=== PATIENT | female | born 1960 | race Caucasian/White ===

== ENCOUNTER 2018-09-26 07:30 | Inpatient (IN) | payer OTHER ==
--- NOTE | 2018-09-16 13:34 | HP ---
HISTORY AND PHYSICAL: DATE OF ADMISSION/SURGERY: 09/26/18 DATE OF OFFICE VISIT: 09/16/18 SURGEON: Rosy Spaulding MD * (DICTATED BY NIRANJAN TYLER) PROCEDURE: Right total knee arthroplasty. CHIEF COMPLAINT: Right knee pain. HISTORY OF PRESENT ILLNESS: Ms. Mckeon is a 58-year-old female with continued complaints of right knee pain. She has failed conservative treatment and elected to proceed with a right total knee arthroplasty. PAST MEDICAL HISTORY: Hypertension, diabetes, high cholesterol, depression, anxiety, and essential tremors. PAST SURGICAL HISTORY: D and C, tonsillectomy, right adrenalectomy, removal of a fistula, and left foot surgery. CURRENT MEDICATIONS: 1. Primidone 250 mg 4 tabs. 2. Primidone 50 mg nightly. 3. Metformin 1000 mg twice a day. 4. Omeprazole 20 mg daily. 5. Citalopram 40 mg daily. 6. Atorvastatin calcium 40 mg daily. 7. Vitamin D3. 8. Multivitamin. 9. Propranolol 20 mg 3 times a day. 10. Gabapentin 400 mg 3 times a day. 11. Lamotrigine 200 mg in the morning. 12. Aripiprazole 10 mg q.h.s. 13. Lisinopril 20 mg daily. 14. Melatonin daily. 15. Tylenol as needed. 16. Naproxen twice a day. ALLERGIES: To SULFA. FAMILY HISTORY: Diabetes, coronary artery disease, stroke, and cancer. SOCIAL HISTORY: She is a 58-year-old female. She lives with her father and brother. She does not smoke, use drugs or alcohol. REVIEW OF SYSTEMS: A complete 14-point review of systems was reviewed with the patient. It was positive for diabetes. She denies history of DVT, PE, hepatitis, HIV or anesthesia problems. PHYSICAL EXAMINATION GENERAL: She is well developed, well nourished, in no acute distress. VITAL SIGNS: She stands 5 feet 3 inches tall, weighs 239 pounds. Her blood pressure is 148/82 and heart rate is 64. HEENT: Normocephalic, atraumatic. NECK: Supple. No palpable lymph nodes. PULMONARY: The lungs are clear to auscultation bilaterally. CARDIO: Regular rate and rhythm. Strong S1, S2. ABDOMEN: Soft, nontender, nondistended. NEUROLOGICAL: She is alert and oriented x3. MUSCULOSKELETAL: Right lower extremity: The skin is intact. There are no open wounds or abrasions. There is a moderate joint effusion. She has some tenderness over the medial and lateral joint line. Range of motion is 10 to 120 degrees of flexion with patellofemoral crepitus. She has a 2+ dorsalis pedis pulse and intact sensation. Her lower extremity muscle group strengths are intact at 5/5. ASSESSMENT AND PLAN: Ms. Mckeon is a 58-year-old female with continued complaints of right knee pain secondary to end-stage osteoarthritis. She has failed conservative treatment and elected to proceed with a right total knee arthroplasty. Her surgery is scheduled for 09/26/[address] Spaulding discussed the risks and benefits of the surgery at today's visit and all of her questions were answered. She will follow up with Dr. Spaulding 2 weeks after the surgery. NIRANJAN TYLER [id number]/[facility] #: [id number] UZIEL
--- NOTE | 2019-01-15 17:47 | HP ---
Amended report to enter cosigning physician. HISTORY AND PHYSICAL: DATE OF ADMISSION/SURGERY: 01/28/19 DATE OF OFFICE VISIT: 01/15/19 SURGEON: Rosy Spaulding MD* (dictated by NIRANJAN Tyler). PROCEDURE: Right total knee arthroplasty. CHIEF COMPLAINT: Right knee pain. HISTORY OF PRESENT ILLNESS: Ms. Mckeon is a 58-year-old female with continued complaints of right knee pain. She has failed conservative treatment and elected to proceed with a right total knee arthroplasty. PAST MEDICAL HISTORY: 1. Hypertension. 2. Diabetes. 3. GERD. 4. Anxiety. 5. Depression. 6. High cholesterol. PAST SURGICAL HISTORY: 1. Adrenalectomy. 2. D and C. CURRENT MEDICATIONS: 1. Primidone 450 mg a day. 2. Metformin 1000 mg twice a day. 3. Omeprazole 20 mg a day. 4. Citalopram hydrobromide 40 mg a day. 5. Atorvastatin calcium 40 mg a day. 6. Vitamin D3. 7. Multivitamin. 8. Propranolol 20 mg three times a day. 9. Gabapentin 400 mg three times a day. 10. Lamotrigine 200 mg daily. 11. Aripiprazole 10 mg q.h.s. 12. Lisinopril 20 mg a day. 13. Melatonin 5 mg a day. 14. Tylenol as needed. 15. Naproxen 500 mg twice a day. ALLERGIES: To SULFA. FAMILY HISTORY: Coronary artery disease, cancer, and diabetes. SOCIAL HISTORY: She is a 58-year-old female. She lives with her father and brother. She does not smoke, use drugs, or alcohol. REVIEW OF SYSTEMS: A complete 14-point review of systems was reviewed with the patient. It was positive for diabetes and GERD. She denies history of DVT, PE , hepatitis, HIV, or anesthesia problems. PHYSICAL EXAMINATION GENERAL: She is well developed, well nourished, in no acute distress. VITAL SIGNS: She stands 5 feet 4 inches tall, weighs 240 pounds. Blood pressure 140/82, heart rate 62. HEENT: Normocephalic, atraumatic. NECK: Supple. No palpable lymph nodes. PULMONARY: The lungs are clear to auscultation bilaterally. CARDIO: Regular rate and rhythm. Strong S1, S2. ABDOMEN: Soft, nontender, nondistended. NEUROLOGICAL: She is alert and oriented x3. MUSCULOSKELETAL: Right lower extremity, the skin is intact. There are no open wounds or abrasions. There is moderate effusion of the right knee joint. She has some tenderness over the medial and lateral joint line. Her calf is soft and nontender. She is able to dorsiflex and plantarflex. Has a 2+ dorsalis pedis pulse. She has intact sensation. ASSESSMENT AND PLAN: Ms. Mckeon is a 58-year-old female with end-stage osteoarthritis of the right knee. She has failed conservative treatment and elected to proceed with a right total knee arthroplasty. Her surgery is scheduled for 01/28/[address] Spaulding discussed the risks and benefits of the surgery at today's visit and all of her questions were answered. She will follow up with Dr. Spaulding 2 weeks after the surgery. NIRANJAN TYLER [id number]/[facility] #: [id number] UZIEL
[2019-01-27] MEDS ORDERED: Buffered Lidocaine 1% SYRIN* 1 ML/SYRINGE INTRADERM ONE (15:39)
[2019-01-28] MEDS ORDERED: Tranexamic Acid 1,000 MG in NS 0.9% 50 ML* (outpatient use) IV SCH ×2
[2019-01-28] MEDS ORDERED: Famotidine IV* 10 MG/ML 2 ML (20 mg) IV ONE (06:00)
[2019-01-28] MEDS ORDERED: NS 0.9% 1000 ML** 1,000 ML IV SCH (06:00)
--- OUTSIDE RECORDS SUMMARY | 2019-01-28 06:22 | XMS REPORT | Continuity of Care Document ---
:1960 External Reference #:[id number] Author Name DesmondCharlotte saucedoe Care Team Providers Name Role Phone Armida Quarles M.D. 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 Onset: 2013 cause Non-toxic uninodular goiter David Valentino M.D. Onset: 11/13/2013 Essential tremor Rozina Stevens M.D. Onset: 10/01/2015 Memory impairment Rozina Stevens M.D. Onset: 10/01/2015 Localized, primary osteoarthritis Rosy Spaulding M.D. Onset: 08/26/2018 Family History Date Family Member(s) Observation Comments General Lung Cancer General Stroke Father Cancer Skin Father Diabetes Father Hypertension Father Heart Murmur Mother due to Diabetes () Mother Cancer Uterine Mother Diabetes Mother Hypertension First Brother Cancer one brother at age 59: liver Cancer one brother at age 60: lung Cancer Social History Type Date Description Comments Sex Unknown Marital Status Single Lives With Father Lives With Brother Occupation day care Work Status Currently Working Tobacco Use Start: Unknown Never Smoked Cigarettes Tobacco Use Start: Unknown Never Smoked Cigars Tobacco Use Start: Unknown Never Smoked A Pipe Smokeless Tobacco Never Used Smokeless Tobacco ETOH Use Denies alcohol use Tobacco Use Start: Unknown Patient has never smoked Recreational Drug Use Denies Drug Use Smoking Status Reviewed: 01/15/19 Patient has never smoked Exercise Type/Frequency Exercises sporadically Allergies, Adverse Reactions, Alerts Active Allergies Reaction Severity Comments Date Sulfa 05/08/2012 Medications Active Medications SIG Qnty Indications Ordering Date Provider Primidone take 1 tablet by 60tabs Teom Valdivia, 02/28/2017 250mg Tablets mouth daily as MD directed. taking 1 tab with 4 tabs of 50mg Primidone 4 tabs by mouth 120tabs G25.0 Lenka Devlin, 05/12/2016 50mg Tablets in addition to M.D. 250mg tab. Naproxen 1 by mouth twice Unknown 500mg Tablets a day Tylenol 2 tabs by mouth Unknown 500mg Tablets every 4 hours as needed Melatonin take one by mouth Unknown 5mg Capsules each day Lisinopril 1 by mouth every 90tabs Unknown 2.5mg day Tablets Aripiprazole 1 by mouth every Unknown 10mg night at bedtime Tablets Lamotrigine ER take 1 pill in in Unknown 200mg the morning Tablets ER 24HR Gabapentin 1 cap by mouth Unknown 400mg three times daily Capsules Propranolol HCL take one tablet 90tabs Lenka Devlin, 20mg by mouth three M.D. Tablets times a day Multivitamin Adult 1 by mouth every Unknown With Iron day Tablets Vitamin D3 1 tab by mouth 90caps Unknown 1000Unit twice a day Capsules Atorvastatin Calcium 1 by mouth every Unknown day 40mg Tablets Citalopram 1 by mouth every 30tabs Unknown Hydrobromide day 40mg Tablets Omeprazole 1 po qd 30caps Unknown 20mg Capsules DR Metformin HCL 1 po bid 60tabs Unknown 1000mg Tablets History Medications Cipro take one tab twice 6tabs Rosy Spaulding, 09/18/2018 - 250mg Tablets a day for three M.D. 09/25/2018 days Multivitamin Adults Unknown - 09/03/2018 Tablets Invokana 1 by mouth every Unknown - 100mg Tablets day before 01/21/2018 breakfast Gabapentin 1 po tid 60caps Unknown - 300mg Capsules 06/17/2018 Bupropion HCL SR 1 by mouth qday Unknown - 150mg 06/17/2018 Tablets ER 12HR Pioglitazone HCL 1 by mouth every 30tabs Unknown - 30mg day 09/30/2015 Tablets Lexapro 1 po qd 30tabs Unknown - 20mg Tablets 06/17/2018 Simvastatin 1 po qhs 30tabs Unknown - 40mg Tablets 09/30/2015 Lisinopril/Hydrochloro 1 po qd 90tabs Unknown - thiazide 06/17/2018 25mg Tablets Meloxicam 1 po qd 30tabs Unknown - 15mg Tablets 01/21/2018 Actos 1 po qd 90tabs Unknown - 30mg Tablets 09/30/2015 Medications Administered in Office Medication SIG Qnty Indications Ordering Provider Date Celestone 3 mg and 3mg Jasson Cutler MD 06/18/2018 Injection Celestone 3 mg and 3mg Jasson Cutler MD 06/18/2018 Injection Vital Signs Date Vital Result Comment 01/15/2019 9:54am Height 64 inches 5'4" Weight 241.00 lb Heart Rate 62 /min Respiratory Rate 16 /min Body Temperature 97.4 F O2 % BldC Oximetry 97 % BMI (Body Mass Index) 41.4 kg/m2 09/16/2018 9:19am Height 63.5 inches 5'3.50" Weight 239.00 lb Heart Rate 64 /min BP Systolic 140 mmHg BP Diastolic 82 mmHg BMI (Body Mass Index) 41.7 kg/m2 09/10/2018 10:17am Height 63.5 inches 5'3.50" Weight 241.00 lb BP Systolic Sitting 128 mmHg BP Diastolic Sitting 82 mmHg Respiratory Rate 16 /min Pain Level 6 BMI (Body Mass Index) 42.0 kg/m2 08/26/2018 9:55am Height 63.5 inches 5'3.50" Weight 242.00 lb Heart Rate 60 /min BP Systolic 124 mmHg BP Diastolic 76 mmHg BMI (Body Mass Index) 42.2 kg/m2 06/18/2018 9:47am Height 64 inches 5'4" Weight 236.00 lb BP Systolic 118 mmHg BP Diastolic 68 mmHg BMI (Body Mass Index) 40.5 kg/m2 06/18/2018 8:46am Height 64 inches 5'4" Weight 236.25 lb Heart Rate 64 /min BP Systolic 118 mmHg BP Diastolic 68 mmHg BMI (Body Mass Index) 40.5 kg/m2 01/22/2018 3:17pm Height 64 inches 5'4" Weight 231.00 lb Heart Rate 67 /min BP Systolic Sitting 122 mmHg BP Diastolic Sitting 70 mmHg Respiratory Rate 16 /min Pain Level 6 BMI (Body Mass Index) 39.6 kg/m2 09/03/2017 9:49am Height 64 inches 5'4" Weight 238.00 lb Heart Rate 60 /min BP Systolic 106 mmHg BP Diastolic 62 mmHg Respiratory Rate 16 /min Pain Level 0 O2 % BldC Oximetry 97 % BMI (Body Mass Index) 40.8 kg/m2 06/01/2017 8:41am Height 64 inches 5'4" Weight 243.00 lb Heart Rate 59 /min BP Systolic Sitting 104 mmHg BP Diastolic Sitting 64 mmHg Respiratory Rate 16 /min Pain Level 0 O2 % BldC Oximetry 98 % BMI (Body Mass Index) 41.7 kg/m2 01/12/2017 8:44am Height 64 inches 5'4" Weight 286.00 lb Heart Rate 60 /min BP Systolic 118 mmHg BP Diastolic 72 mmHg Respiratory Rate 17 /min O2 % BldC Oximetry 97 % Ra BMI (Body Mass Index) 49.1 kg/m2 05/12/2016 11:21am Height 64 inches 5'4" Weight 286.00 lb Heart Rate 68 /min BP Systolic 104 mmHg BP Diastolic 58 mmHg Respiratory Rate 16 /min BMI (Body Mass Index) 49.1 kg/m2 10/01/2015 8:59am Height 64 inches 5'4" Weight 286.00 lb Heart Rate 64 /min BP Systolic Sitting 144 mmHg BP Diastolic Sitting 84 mmHg Respiratory Rate 16 /min BMI (Body Mass Index) 49.1 kg/m2 11/06/2013 9:58am Height 64 inches 5'4" Weight 281.00 lb Heart Rate 88 /min BP Systolic Sitting 126 mmHg BP Diastolic Sitting 80 mmHg BMI (Body Mass Index) 48.2 kg/m2 05/08/2012 2:06pm Height 64 inches 5'4" Weight 296.00 lb BMI (Body Mass Index) 50.8 kg/m2 Results Test Date Facility Test Result H/L Range Note Urinalysis Profile 01/15/2019 [facility] Urine Color Sandhya [address] [place] [address] [phone] Urine Appearance Cloudy Urine Specific Kimberly 1.027 N 1.010-1.030 Urine pH 5.0 N 5-9 Urine Urobilinogen Negative Negative Urine Ketones Negative Negative Urine Protein Negative Negative Urine Leukocytes 1+ Abnormal Negative Urine Blood Negative Negative Urine Nitrite Negative Negative Urine Bilirubin Negative Negative Urine Glucose Negative Negative Urine White Blood Cell 2+(11-20/hpf) Abnormal Absent Urine Red Blood Cell Absent Absent Urine Bacteria Absent Absent Urine Squamous Epithelial Cell Present Abnormal Absent Urine Hyaline Casts Present Abnormal Absent Inr/Protime 01/15/2019 [facility] Inr 0.93 N 0.82-1.[address] [place] [address] [phone] Laboratory test 01/15/2019 [facility] Partial 33.2 seconds N 26.0-38.[address] [place] [address] PTT [phone] CBC Auto Diff 01/15/2019 [facility] White Blood 7.6 10^3/uL N 3.5-10.[address] [place] [address] [phone] Red Blood Count 4.05 10^6/uL N 3.70-4.87 Hemoglobin 13.0 g/dL N 12.0-16.0 Hematocrit 39 % N 35-47 Mean Corpuscular Volume 96 fL N 80-97 Mean Corpuscular Hemoglobin 32 pg High 27-31 Mean Corpuscular HGB Conc 33 g/dL N 31-36 Red Cell Distribution Width 14 % N 10.5-15 Platelet Count 321 10^3/uL N 150-450 Mean Platelet Volume 8.1 fL N 7.4-10.4 Abs Neutrophils 4.0 10^3/uL N 1.5-7.7 Abs Lymphocytes 2.4 10^3/uL N 1.0-4.8 Abs Monocytes 0.6 10^3/uL N 0-0.8 Abs Eosinophils 0.6 10^3/uL N 0-0.6 Abs Basophils 0.0 10^3/uL N 0-0.2 Abs Nucleated RBC 0.0 10^3/uL Granulocyte % 53.0 % Lymphocyte % 31.2 % Monocyte % 7.7 % Eosinophil % 7.7 % Basophil % 0.4 % Nucleated Red Blood Cells % 0.0 Comp Metabolic Panel 01/15/2019 [facility] Sodium 140 mmol/L N 135-[address] [place] [address] [phone] Chloride 107 mmol/L N 101-111 Co2 Carbon Dioxide 26 mmol/L N 22-32 Glucose 81 mg/dL N 70-100 Blood Urea Nitrogen 22 mg/dL N 6-24 Creatinine 0.87 mg/dL N 0.51-0.95 BUN/Creatinine Ratio 25.3 High 8-20 Calcium 9.5 mg/dL N 8.6-10.3 Total Protein 6.6 g/dL N 6.4-8.9 Albumin 4.1 g/dL N 3.2-5.2 Globulin 2.5 g/dL N 2-4 Albumin/Globulin Ratio 1.6 N 1-3 Total Bilirubin 0.20 mg/dL N 0.2-1.0 Alkaline Phosphatase 70 U/L N 34-104 Alt 30 U/L N 7-52 Ast 29 U/L N 13-39 Egfr Non- 66.4 >60 Egfr 80.4 >60 2 Potassium 5.2 mmol/L High 3.5-5.0 Anion Gap 7 mmol/L N 2-11 Type & Screen 01/15/2019 [facility] Patient Blood Type A Positive [address] [place], [place] [id number] [phone] Antibody Screen NEGATIVE Urine Culture And 01/15/2019 [facility] Urine Culture SEE RESULT [address] [place] [address] [phone] Urine Culture And 09/16/2018 [facility] Urine Culture SEE RESULT [address] [place] [address] [phone] Type & Screen 09/16/2018 [facility] Patient Blood A Positive [address] Type [place], [place] [id number] [phone] Antibody Screen NEGATIVE Comp Metabolic Panel 09/16/2018 [facility] Sodium 140 mmol/L N 135-[address] [place] [address] [phone] Chloride 104 mmol/L N 101-111 Co2 Carbon Dioxide 28 mmol/L N 22-32 Glucose 96 mg/dL N 70-100 Blood Urea Nitrogen 20 mg/dL N 6-24 Creatinine 0.96 mg/dL High 0.51-0.95 BUN/Creatinine Ratio 20.8 High 8-20 Calcium 9.6 mg/dL N 8.6-10.3 Total Protein 6.4 g/dL N 6.4-8.9 Albumin 4.0 g/dL N 3.2-5.2 Globulin 2.4 g/dL N 2-4 Albumin/Globulin Ratio 1.7 N 1-3 Total Bilirubin 0.20 mg/dL N 0.2-1.0 Alkaline Phosphatase 95 U/L N 34-104 Alt 26 U/L N 7-52 Ast 28 U/L N 13-39 Egfr Non- 59.3 >60 Egfr 71.7 >60 5 Potassium 5.2 mmol/L High 3.5-5.0 Anion Gap 8 mmol/L N 2-11 Laboratory test 09/16/2018 [facility] Partial 29.6 seconds N 26.0-36.[address] [place] [address] PTT [phone] Inr/Protime 09/16/2018 [facility] Inr 0.90 N 0.77-1.[address] [place] [address] [phone] CBC Auto Diff 09/16/2018 [facility] White Blood 7.8 10^3/uL N 3.5-10.8 [place] [address] [phone] Red Blood Count 4.31 10^6/uL N 4.00-5.40 Hemoglobin 13.5 g/dL N 12.0-16.0 Hematocrit 40 % N 35-47 Mean Corpuscular Volume 93 fL N 80-97 Mean Corpuscular Hemoglobin 31 pg N 27-31 Mean Corpuscular HGB Conc 34 g/dL N 31-36 Red Cell Distribution Width 13 % N 10.5-15 Platelet Count 376 10^3/uL N 150-450 Mean Platelet Volume 8.4 fL N 7.4-10.4 Abs Neutrophils 4.4 10^3/uL N 1.5-7.7 Abs Lymphocytes 2.4 10^3/uL N 1.0-4.8 Abs Monocytes 0.6 10^3/uL N 0-0.8 Abs Eosinophils 0.4 10^3/uL N 0-0.6 Abs Basophils 0 10^3/uL N 0-0.2 Abs Nucleated RBC 0 10^3/uL Granulocyte % 56.0 % Lymphocyte % 31.2 % Monocyte % 7.1 % Eosinophil % 5.1 % Basophil % 0.6 % Nucleated Red Blood Cells % 0 Urinalysis Profile 09/16/2018 [facility] Urine Color Sandhya [address] [place] [address] [phone] Urine Appearance Cloudy Urine Specific Kimberly 1.028 N 1.010-1.030 Urine pH 5.0 N 5-9 Urine Urobilinogen Negative Negative Urine Ketones Negative Negative Urine Protein 1+(30 mg/dL) Abnormal Negative Urine Leukocytes 3+ Abnormal Negative Urine Blood Negative Negative Urine Nitrite Negative Negative Urine Bilirubin 2+ Abnormal Negative Urine Glucose Negative Negative Urine White Blood Cell 3+(>20/hpf) Abnormal Absent Urine Red Blood Cell Absent Absent Urine Bacteria Absent Absent Urine Squamous Epithelial Cell Present Abnormal Absent Urine Hyaline Casts Present Abnormal Absent Laboratory test finding 11/06/2013 [facility] T4 7.62 g/dL N 6.09-12.23 [facility] [place] [address] [phone] Total T3 0.93 ng/mL N 0.87-1.78 TSH (Thyroid Stimulating Horm) 0.26 IU/mL Low 0.34-5.60 1 Standard intensity warfarin therapeutic range: 2.0-3.0 High intensity warfarin therapeutic range: 2.5-3.5 2 Because ethnic data is not always readily available, this report includes an eGFR for both -Americans and non- Americans. The National Kidney Disease Education Program (NKDEP) does not endorse the use of the MDRD equation for patients that are not between the ages of 18 and 70, are , have extremes of body size, muscle mass, or nutritional status, or are non- or non-. According to the National Kidney Foundation, irrespective of diagnosis, the stage of the disease is based on the level of kidney function: Stage Description GFR(mL/min/1.73 m(2)) 1 Kidney damage with normal or decreased GFR 90 2 Kidney damage with mild decrease in GFR 60-89 3 Moderate decrease in GFR 30-59 4 Severe decrease in GFR 15-29 5 Kidney failure <15 (or dialysis) 3 SEE RESULT BELOW Name: MAGALIS MCKEON : [address]: Rosy Spaulding MD Acct: [id number] Unit: [id number] AGE: 58 Location: [facility] Re01/15/19 SEX: F Status: REG REF SPEC: [id number] KIKO: 01/15/19-[address] [facility] [address]: Rosy Spaulding MD REQ: [id number] RECD: 01/15/19385 STATUS: TOREY FELIZ DR: Armida Quarles MD _ SOURCE: URINE SPDESC: ORDERED: Urine Culture QUERIES: Urine Source: Clean Catch Procedure Result Reported Site Urine Culture Final 01/17/19- 1220 ML No growth of clinically significant organisms * ML - Main Lab . END OF REPORT DEPARTMENT OF PATHOLOGY, [address] [place] [address] Roque Multani M.D. Director [facility] # [id number] 4 SEE RESULT BELOW Name: MAGALIS MCKEON : [address]: Rosy Spaulding MD Acct: [id number] Unit: [id number] AGE: 58 Location: PAT Re09/16/18 SEX: F Status: REG REF SPEC: [id number] KIKO: 09/16/18-1213 [facility] [address]: Rosy Spaulding MD REQ: [id number] RECD: 09/16/18 STATUS: TOREY FELIZ DR: Armida Quarles MD _ SOURCE: URINE SPDESC: ORDERED: Urine Culture QUERIES: Urine Source: Clean Catch Procedure Result Reported Site Urine Culture Final 09/18/18- 1114 ML No growth of clinically significant organisms * ML - Main Lab . END OF REPORT DEPARTMENT OF PATHOLOGY, [address] [place] [address] Roque Multani M.D. Director [facility] # [id number] 5 Because ethnic data is not always readily available, this report includes an eGFR for both -Americans and non- Americans. The National Kidney Disease Education Program (NKDEP) does not endorse the use of the MDRD equation for patients that are not between the ages of 18 and 70, are , have extremes of body size, muscle mass, or nutritional status, or are non- or non-. According to the National Kidney Foundation, irrespective of diagnosis, the stage of the disease is based on the level of kidney function: Stage Description GFR(mL/min/1.73 m(2)) 1 Kidney damage with normal or decreased GFR 90 2 Kidney damage with mild decrease in GFR 60-89 3 Moderate decrease in GFR 30-59 4 Severe decrease in GFR 15-29 5 Kidney failure <15 (or dialysis) Procedures Date Code Description Status 09/16/2018 55380 EKG, Interpretation Only Completed 06/18/2018 87472 Inject/Drain Joint/Bursa Major W/O US Completed 10/11/2016 51778 Polysomnography Sleep Staging 4+ Parameters W/Cpap Completed 04/13/2016 68793 Polysomnography Sleep Staging 4+ Parameters Completed 10/07/2013 50317 Nerve Conduction 07-08 Studies Completed 10/07/2013 70331 Needle Electromyography Each Extremity W/Related Completed Paraspinal Areas Encounters Type Date Location Provider Dx Diagnosis Office Visit 09/10/2018 [place]/Susana Devlin, G25.0 Essential tremor 10:30a Neurologic Serv Harpal Rich Z79.899 Other pediatric pathologist (current) drug therapy Office Visit 08/26/2018 9:30a Orthopedic Rosy M17.0 Bilateral primary Services Of Delfino Spaulding osteoarthritis of C.M.A. 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, unspecified Office Visit 01/22/2018 [place]/Susana Lenka Loyagiancarlo, G25.0 Essential 3:30p Neurologic Serv Of Delfino tremor Credit Risk Officer Z79.899 Other pediatric pathologist (current) drug therapy Office Visit 09/03/2017 [place]/Susana Gong G25.0 Essential 10:00a Neurologic Serv Of Delfino Stevens tremor Credit Risk Officer Office Visit 06/01/2017 [place]/Susana Gong G25.0 Essential 8:45a Neurologic Serv Of Delfino Stevens tremor Credit Risk Officer Office Visit 01/12/2017 [place]/Susana Gong G25.0 Essential 8:45a Neurologic Serv Of Delfino Stevens tremor Credit Risk Officer Office Visit 05/12/2016 [place]/Susana Gong G25.0 Essential 11:30a Neurologic Serv Of Delfino Stevens tremor Credit Risk Officer R40.0 Somnolence G47.33 Obstructive sleep apnea (adult) (pediatric) Office Visit 10/01/2015 [place]/Susana Gong G25.0 Essential 9:00a Neurologic Serv Of Delfino Stevens tremor Credit Risk Officer R41.3 Other amnesia R40.0 Somnolence Office Visit 11/13/2013 ENT Services David Samuels.Inna Thyrotoxicosis W/O 10:00a Of C.M.[facility]arcus AT [place] Kamilla Goiter Other Cause [place] W/O Crisis Or Storm 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 Office Visit 11/06/2013 ENT Services Sam Clement Thyrotoxicosis W/O 10:00a C.[facility]arc[facility] AT [place] Kamilla Goiter Other Cause [place] W/O Crisis Or Storm Office Visit 07/03/2012 Cash Mckeon.16 Osteoarthrosis 9:45a Nolan Localized Prim Credit Risk Officer Lower Leg Office Visit 06/19/2012 Hector Mckeon Osteoarthrosis 9:30a Nolan Localized Prim Credit Risk Officer Lower Leg Office Visit 05/08/2012 Graciela Mckeon16 Osteoarthrosis 2:00p Nolan Localized Prim Credit Risk Officer Lower Leg Plan of Treatment Future Appointment(s):01/28/2019 9:30 am - Andre Dawkins PA-C at [facility].A.01/28/2019 9:30 am - NIRAJNAN Sykes at [facility].A.02/10/2019 9:30 am - Rosy Spaulding M.D. at [facility].01/28/2019 9:30 am - Rosy Spaulding M.D. at [facility].A.02/11/2019 9:00 am - Lenka Devlin M.D. at [facility]01/15/2019 - Rosy Spaulding M.D.M25.561 Pain in right kneeFollow up:Follow up: 2 weeks after kjpepsvQ31.461 Effusion, right kneeM17.0 Bilateral primary osteoarthritis of knee
--- OUTSIDE RECORDS SUMMARY | 2019-01-28 06:22 | XMS REPORT | Continuity of Care Document ---
:1960 External Reference #:[id number] Author Name Fern Gomez Care Team Providers Name Role Phone Armida Quarles M.D. Primary Care Physician Unavailable Payers Date Identification Numbers Payment Provider Subscriber Effective: 2017 Policy Number: [id number] Medicaid Magalis Mckeon Expires: 2017 Group Name: 1 1 [address] PayID: [id number] [place] [address] Policy Number: [id number] Anastaciomoncho Mckeon Group Number: [id number] [address] PayID: [id number] [place] [address] Problems Active Problems Provider Date Thyrotoxicosis without [...] Provider Primidone take 1 tablet by 60tabs Temo Valdivia, 02/28/2017 250mg Tablets mouth daily as [...] Test Result H/L Range Note Urinalysis Profile 09/16/2018 [facility] Urine Color Sandhya [address] [place] [address] [phone] Urine Appearance Cloudy Urine Specific [place] 1.028 N 1.010-1.030 Urine pH 5.0 N [...] Absent Urine Hyaline Casts Present Abnormal Absent CBC Auto Diff 09/16/2018 [facility] White Blood 7.8 10^3/uL N 3.5-10.[address] [place] [address] [phone] Red Blood Count 4.31 10^6/uL N 4.00-5.40 [...] % Nucleated Red Blood Cells % 0 Inr/Protime 09/16/2018 [facility] Inr [address] [place] [address] [phone] Laboratory test 09/16/2018 [facility] Partial 29.6 seconds N 26.0-36.[address] [place] [address] PTT [phone] Comp Metabolic 09/16/2018 [facility] Sodium 140 mmol/L N 135- [address] [place] [address] [phone] Chloride 104 mmol/L N 101-111 Co2 Carbon [...] Egfr Non- 59.3 >60 Egfr 71.7 >60 1 Potassium 5.2 mmol/L High 3.5-5.0 Anion Gap 8 mmol/L N 2-11 Type & Screen 09/16/2018 [facility] Patient Blood [place] [address] [phone] Antibody Screen NEGATIVE Urine Culture And 09/16/2018 [facility] Urine Culture SEE RESULT [address] [place] [address] [phone] Laboratory test 11/06/2013 [facility] T4 7.62 g/dL N 6.09-[address] [place] [address] [phone] Total T3 0.93 ng/mL N 0.87-1.78 TSH (Thyroid Stimulating Horm) 0.26 IU/mL Low 0.34-5.60 1 Because ethnic data is not always readily [...] 15-29 5 Kidney failure <15 (or dialysis) 2 SEE RESULT BELOW Name: MAGALIS MCKEON : [address]: Rosy Spaulding MD Acct: [id number] Unit: [id number] AGE: 58 Location: [facility] Re09/16/18 SEX: F Status: REG REF SPEC: [id number] KIKO: 09/16/18-[address]: Rosy Spaulding MD REQ: [id number] RECD: 09/16/18-1230 STATUS: COMP OT DR: Armida Quarles MD _ SOURCE: URINE SPDESC: ORDERED: Urine Culture QUERIES: Urine Source: Clean Catch Procedure Result Reported Site Urine Culture Final 09/18/18- 1114 ML No growth of clinically significant organisms * ML - Main Lab . END OF REPORT DEPARTMENT OF PATHOLOGY, [address] [place] [address] Roque Multani M.D. Director [facility] # [id number] Procedures Date Code Description Status 09/16/2018 59629 EKG, Interpretation Only Completed 06/18/2018 16179 Inject/Drain Joint/Bursa Major W/O US Completed 10/11/2016 56499 Polysomnography Sleep Staging 4+ Parameters W/Cpap Completed 04/13/2016 33779 Polysomnography Sleep Staging 4+ Parameters Completed 10/07/2013 52107 Nerve Conduction 07-08 Studies Completed 10/07/2013 14134 Needle Electromyography Each Extremity W/Related Completed Paraspinal Areas Encounters Type Date Location Provider Dx Diagnosis Office Visit 09/10/2018 [facility]/Prestolavinia Devlin G25.0 Essential tremor 10:30a [facility] Z79.899 Other nursing home (current) drug therapy Office Visit 08/26/2018 9:30a Orthopedic Rosy M17.0 Bilateral primary Services [facility] Spaulding osteoarthritis of [facility] 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, unspecified Office Visit 01/22/2018 [facility]/Prestolavinia Devlin G25.0 Essential 3:30p [facility] tremor [facility] Z79.899 Other termite helper (current) drug therapy Office Visit 09/03/2017 [place]/Susana Gong G25.0 Essential 10:00a [facility] Stevens tremor [facility] Office Visit 06/01/2017 [facility]Susana Gong G25.0 Essential 8:45a [facility] Stevens tremor [facility] Office Visit 01/12/2017 [facility]/Susana Gong G25.0 Essential 8:45a [facility] Stevens tremor [facility] Office Visit 05/12/2016 [facility]Susana Gong G25.0 Essential 11:30a [facility] Stevens tremor Hilario R40.0 Somnolence G47.33 Obstructive sleep apnea (adult) (pediatric) Office Visit 10/01/2015 [facility]/Susana Gong G25.0 Essential 9:00a [facility] Stevens tremor [facility] R41.3 Other amnesia R40.0 Somnolence Office Visit 11/13/2013 ENT Services David 242.90 Thyrotoxicosis W/O 10:00a Of [facility] AT [facility] Valentino Goiter Other Cause [place] W/O Crisis Or Storm 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 Office Visit 11/06/2013 [facility] Services Of [facility] 242.90 Thyrotoxicosis W/O 10:00a [facility] Valentino Goiter Other Cause [place] W/O Crisis Or Storm Office Visit 07/03/2012 Joint Theresa Feng5.16 Osteoarthrosis 9:45a [facility] of [facility] 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 at [facility]01/28/2019 9:30 am - Rosy Spaulding M.D. at [facility]02/11/2019 9:00 am - Lenka Devlin M.D. at [facility]01/15/2019 - Rosy Spaulding M.D.M25.561 Pain in right kneeFollow up:Follow up: 2 weeks after hzquqynN06.461 Effusion, right kneeM17.0 Bilateral primary osteoarthritis of knee
[2019-01-28] MEDS ORDERED: Acetaminophen TAB* 325 MG ONE (06:50)
[2019-01-28] MEDS ORDERED: Buffered Lidocaine 1% SYRIN* 1 ML/SYRINGE INTRADERM ONE (06:50)
[2019-01-28] MEDS ORDERED: ceFAZolin 2 GM PREMIX in ORs 2 GM/50 ML BAG ONE (06:50)
[2019-01-28] MEDS ORDERED: Ibuprofen TAB* 600 MG ONE (06:50)
[2019-01-28] MEDS ORDERED: Famotidine IV* 10 MG/ML 2 ML (20 mg) ONE (06:51)
[2019-01-28] MEDS: Acetaminophen TAB* 325 MG PO ONE ×2 (07:03→07:09)
[2019-01-28] MEDS: Ibuprofen TAB* 600 MG PO ONE ×3 (07:03→12:49)
[2019-01-28] MEDS ORDERED: Bupivacaine 0.5%* 50 ML VIAL ONE (07:06)
[2019-01-28] MEDS ORDERED: Ondansetron INJ* 2 MG/ML VIAL ONE (07:45)
[2019-01-28] MEDS ORDERED: Midazolam* 1 MG/ML 10 ML VIAL (10 MG) ONE (07:45)
[2019-01-28] MEDS ORDERED: fentaNYL* 50 MCG/ML 2 ML VIAL (100 MCG VIAL) ONE ×2 (07:45→12:08)
[2019-01-28] MEDS ORDERED: Sodium Chloride 0.9%* 20 ML ONE (07:45)
[2019-01-28] MEDS ORDERED: Lidocaine 2% PF * 5 ML VIAL ONE ×3 (07:45→09:27)
[2019-01-28] MEDS ORDERED: ROPIVACAINE 5 MG/ML 30 ML BTL (0.5%) ONE ×2 (07:45→07:59)
[2019-01-28] MEDS ORDERED: Dexamethasone IV* 4 MG/ML 1 ML (4 MG) ONE (07:45)
[2019-01-28] MEDS ORDERED: KETAMINE HCL* 50 MG/ML 10 ML VIAL ONE (07:45)
[2019-01-28] MEDS ORDERED: Propofol* 10 MG/ML 20 ML BTL ONE ×2 (07:45→09:27)
[2019-01-28] MEDS ORDERED: Phenylephrine 10 MG/ML VIAL* 1 ML VIAL ONE (09:10)
[2019-01-28] MEDS ORDERED: EPHEDrine (Pressors)* 50 MG/ML VIAL ONE (09:17)
[2019-01-28] MEDS ORDERED: fentaNYL* 50 MCG/ML 5 ML VIAL (250 MCG VIAL) ONE (09:21)
[2019-01-28] MEDS ORDERED: Ondansetron INJ* 2 MG/ML VIAL IV PRN ×2 (10:32→11:34)
[2019-01-28] MEDS ORDERED: Naloxone* 0.4 MG/ML 1 ML VIAL IV PRN (10:32)
[2019-01-28] MEDS ORDERED: diPHENhydraMINE IV* 50 MG/ML 1 ml VIAL (BENADRYL) IV PRN (11:34)
[2019-01-28] MEDS ORDERED: Acetaminophen TAB* 325 MG PO PRN (11:34)
[2019-01-28] MEDS ORDERED: Morphine INJ* 2 MG/ML 1 ML SYRINGE (TWO MG - NEW SYRINGE VERSION) IV PRN (11:34)
[2019-01-28] MEDS ORDERED: Magnesium Hydroxide LIQ* 30 ML UDC PO PRN (11:34)
[2019-01-28] MEDS ORDERED: Bisacodyl SUPP* 10 MG SUPP PR PRN (11:34)
[2019-01-28] MEDS: fentaNYL* 50 MCG/ML 2 ML VIAL (100 MCG VIAL) IV PRN ×2 (12:09→12:42)
[2019-01-28] MEDS ORDERED: Dextrose 50% Syringe 50 ML* 25 GM/50 ML SYRINGE IV PUSH PRN (13:14)
--- NOTE | 2019-01-28 13:35 | PN ---
Progress Note - Progress Note Date of Service: 01/28/19 Note: resting comfortably in bed with no significant complaints of pain; able to dorsi flex/plantar flex, 2+ DP pulse, intact sensation
[2019-01-28] MEDS ORDERED: oxyCODONE/Acetamin 5/325 MG* TAB ONE (13:41)
[2019-01-28] MEDS: oxyCODONE/Acetamin 5/325 MG* TAB PO PRN ×3 (13:42→22:10)
[2019-01-28] MEDS: Lactated Ringers 1000 ML Bag* 1,000 ML IV SCH (14:24)
[2019-01-28] MEDS: Gabapentin CAP(*) 400 MG PO SCH ×2 (14:25→20:55)
[2019-01-28] MEDS: Nystatin TOP POWDER* 15 GM BTL TOPICAL SCH ×2 (14:25→21:00)
[2019-01-28] MEDS: Propranolol TAB* 20 MG PO SCH ×2 (14:25→21:05)
[2019-01-28] MEDS: Cyclobenzaprine TAB* 10 MG PO PRN ×2 (14:31→22:10)
--- NOTE | 2019-01-28 15:10 | CONS ---
CC: Dr. Spaulding; Dr. Quarles * CONSULTATION REPORT: DATE OF CONSULT: 01/28/19 PRIMARY CARE PROVIDER: Armida Quarles MD. REQUESTING PHYSICIAN: Dr. Spaulding. REASON FOR CONSULT: This consultation was requested by Dr. Spaulding for postoperative management of the patient's diabetes and hypertension in this patient who is status post right total knee replacement. CHIEF COMPLAINT: Right knee pain. HISTORY OF PRESENT ILLNESS: Magalis Mckeon is a 58-year-old female with history of obesity and osteoarthritis of her right knee who is status post elective right knee replacement performed by Dr. Spaulding. The patient is being evaluated in the postoperative unit and medicine is going to be consulted for the patient's management of diabetes and hypertension perioperatively. Currently, the patient complains of discomfort in the postoperative knee and the sensation that the knee is being pushed towards the bed. PAST MEDICAL HISTORY: 1. Hypertension. 2. Diabetes. 3. Gastroesophageal disease. 4. Anxiety. 5. Depression. 6. Dyslipidemia. 7. 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 8. History of D and C. 9. History of "abnormal EKG," for which the patient was evaluated by Dr. Emir Issa for preoperative clearance from cardiology. 10. The patient also has history of benign tremor. MEDICATIONS AT HOME: Include: 1. Metformin 1000 mg b.i.d. 2. Lamictal 200 mg q.a.m. 3. Vitamin D 1000 units b.i.d. 4. Propranolol 20 mg 3 times a day. 5. Primidone 250 mg at bedtime. 6. Omeprazole 20 mg daily. 7. Naproxen 500 mg b.i.d. p.r.n. 8. Multivitamin 1 tablet daily. 9. Melatonin 5 mg at bedtime. 10. Lisinopril 25 mg in a.m. 11. Gabapentin 400 mg 3 times a day. 12. Celexa 40 mg daily. 13. Lipitor 40 mg at bedtime. 14. Acetaminophen 500 mg every 6 hours p.r.n. 15. Abilify 10 mg at bedtime. ALLERGIES: SULFA. FAMILY HISTORY: Positive for brother with prostate cancer. Mother with history of mitral valve prolapse due to complications of diabetes and heart disease. SOCIAL HISTORY: The patient is currently not working. Lives with her father and brother. As her surrogate, she named her father, Wesley Mckeon. The patient denies tobacco, alcohol or drug use. She is a full code. REVIEW OF SYSTEMS: Please see history of present illness. All the remaining 12 systems were reviewed with the patient and were, otherwise, negative. PHYSICAL EXAM: Blood pressure of 108/67, heart rate of 70 and regular, respiratory rate 14, oxygen saturation 98% on 4 L of oxygen nasal cannula, temperature is 97.8. General: The patient is a pleasant 58-year-old female with a BMI of 38 who is in no acute distress. The patient is alert, awake, and oriented x3, mildly lethargic postoperatively. HEENT: Head: Atraumatic, normocephalic. Eyes: Pupils are equal and reactive to light and accommodation. Oropharynx is clear. Mucosa moist. Neck: Supple. No JVD. No bruits bilaterally. Cardiovascular: Regular rate and rhythm. No murmur. Respiratory: Clear to auscultation bilaterally. Abdomen: Soft and nontender. Bowel sounds are present in all 4 quadrants. Extremities: There is no edema. Pulses are 2+ bilaterally. There is no clubbing or cyanosis. The right knee is placed in a cryo unit and postoperative dressings in place that were not removed. Neuro Evaluation: Speech is clear. Cranial nerves II through XII grossly intact. Motor strength is 5/5 bilaterally. DIAGNOSTIC STUDIES/LAB DATA: None currently. ASSESSMENT AND PLAN: 1. In regards to the patient's diabetes, the patient's metformin is going to be held and the patient is going to be placed on insulin sliding scale. 2. For the patient's anxiety and depression, lamotrigine as well as Celexa and Abilify are going to be continued postoperatively. 3. For the patient's benign tremor, propranolol as well as primidone are going to be continued. 4. For gastroesophageal disease, we will continue the patient's Prilosec. 5. In regards to the patient's postoperative management of hypertension, I will hold the patient's lisinopril and continue propranolol with hold parameters. 6. For DVT prophylaxis, the patient was already placed by orthopedic service on apixaban at 2.5 mg b.i.d., which is going to be continued. 7. The patient's code status is full and her surrogate is her father. TIME SPENT: Approximately 60 minutes were spent on the consultation of this patient, more than half that time was spent [id number] with the patient during the interview and physical exam. Thank you very much for allowing our service to see your patient in consultation. We will follow her on a daily basis. [id number]/CPS #: [id number] UZIEL
[2019-01-28] MEDS: ceFAZolin 1 GM ADVAN(*) 1 GM in NS 0.9% 50 ML* 50 ML IVPB SCH (17:43)
--- NOTE | 2019-01-28 18:11 | OP ---
Operative Report - Blank - Operative Report Date of Operation: 01/28/19 Note: SHANTAL LALA 1960 Date of Surgery: 01/28/19 Rosy Spaulding MD Hairspring Setter: Candy UREÑA did help throughout the procedure with preparation of the knee, wound retraction, manipulation of the knee, and wound closure. Anesthesiologist: Sonia Mckay MD Anesthesia Type: Spinal Preoperative Diagnosis: Right severe degenerative osteoarthritis of the knee Postoperative Diagnosis: As above Procedure Performed: Right Total Knee Arthroplasty Tourniquet time: 44 minutes Complications: None Specimen: Bone and cartilage from the right knee joint sent to pathology. Hardware Used: Cemented Issa and Nephew total knee hardware was used - For the femur a size 5 right narrow oxinium legion posterior stabilized femoral component, for the tibia a size 3 right rex II tibial baseplate, for the insert a size 9 mm 3-4 posterior stabilized articular polyethylene insert, and for the patella a size 32 3-peg all poly patella. Brief History/Indication: SHANTAL LALA was known in clinic and had a history of severe right knee pain and swelling. She failed conservative treatment with anti -inflammatories, pain pills, intra-articular injections and physical therapy. She elected to undergo right total knee arthroplasty due to continued pain and decreased quality of life. Radiographs showed severe end stage osteoarthritis of the knee with bone on bone contact. Informed consent was obtained from the patient. She understood the risks of surgery included but were not limited to: bleeding, infection, damage to nearby structures, intraoperative fracture, nerve palsy, failure of the hardware, early loosening, knee stiffness or loss of motion, anesthesia complications, stroke, heart attack, blood clot and . She wished to proceed. Intra-Operative Findings: Intraoperatively the patient was noted to have severe loss of cartilage in all 3 compartments of the knee. Description of the Procedure: SHANTAL LALA was identified in the preanesthesia unit. Her right knee was marked as the correct operative side. Informed consent was signed and placed in the chart. The patient was taken to the operating room and placed under anesthesia without complication. A doyle catheter was placed. A tourniquet was placed on the right thigh. The right lower extremity was prepped and draped in the usual sterile fashion. Preoperative time-out was made to correctly identify the patient, side and site. Appropriate intraoperative antibiotics were given within one hour of incision. Tourniquet was inflated. A midline incision was made and carried sharply down to the extensor mechanism. A new 10 blade was used to make a standard medial parapatellar arthrotomy. The patella was subluxed laterally. Electrocautery was used to dissect soft tissue off the superomedial tibia to the midsagittal plane. The knee was flexed up. The anterior horn of the lateral meniscus and the ACL were sharply incised. A drill was used to enter the distal femur. The intramedullary distal femoral cutting guide was pinned on the distal femur. The oscillating saw was used to make the distal femoral cut. The external rotation guide was pinned on the distal femur and the distal femur was sized to a size 5. The size 5 multi-cutting jig was pinned on the distal femur. The oscillating saw was used to make the appropriate 4 chamfer cuts. Next the PCL was completely released. The extramedullary tibial cutting guide was pinned on the proximal tibia and the oscillating saw was used to make the proximal tibial cut perpendicular to the mechanical axis of the tibia. The bone was carefully removed. The knee was brought out into full extension. The spacer block was placed and had excellent fit with the knee in full extension. The medial and lateral ligaments were well balanced. The flexion and extension gaps were well balanced. The knee was flexed up. Lamina incident response lead was placed both medially and laterally. Any remaining meniscus was removed with electrocautery. Curved osteotome was used to remove any posterior osteophytes. The tibial tray and drop chi were placed and confirmed a satisfactory tibial cut. The size 5 right narrow femoral trial was impacted onto the distal femur. This trial had excellent fit and stability. The box for the posterior stabilized implant was prepared using a box cut osteotome and a reamer. Next a tibial tray trial and 9 mm insert trial was placed. The knee was taken through a range of motion and had full extension to 130 degrees of flexion. Patellofemoral tracking was satisfactory. The patella was inverted and sized to a size 32. Three peg holes were drilled through the size 32 drill guide. The trial patella was placed and the knee was taken through a range of motion. There was satisfactory patellofemoral tracking. All trials were removed. The tibia was subluxed anteriorly and sized to a size 3. The proximal tibial was prepared with a size 3 keel punch. All bony cut surfaces were irrigated with sterile saline and dried. Final implants were cemented into place starting with the tibia, followed by the femur, and last the patella. A 9 mm insert trial was placed and the knee was brought into full extension. Tourniquet was turned down and the knee was copiously irrigated with sterile saline. Electrocautery was used to obtain meticulous hemostasis. Once the cement had fully cured, the insert trial was removed. Any excess cement was removed from around the hardware and capsule. Final insert chosen was a 9 mm posterior stabilized Rex II articular insert size 3-4. Stability of the insert was checked and noted to be stable. The extensor mechanism was closed using number 1 vicryls. The rest of the incision was closed in a layered fashion using 0 and 2-0 vicryls. The skin was closed using 3-0 nylon suture. Sterile xeroform, 4x4s and webril were used to cover the incision. Daniel wrap and cold pack were used to cover the dressings. The patients anesthesia was reversed without difficulty. She was taken to the PACU in stable condition. Intended weight-bearing will be as tolerated.
[2019-01-28] MEDS: Insulin LISPRO* 1 UNITS UNIT SUBCUT SCH ×2 (18:15→20:59)
[2019-01-28] MEDS: oxyCODONE TAB* 5 MG TAB PO PRN (20:10)
[2019-01-28] MEDS: Atorvastatin* 40 MG TAB PO SCH (20:55)
[2019-01-28] MEDS: Docusate CAP* 100 MG PO SCH (20:55)
[2019-01-28] MEDS: Magnesium Hydroxide LIQ* 30 ML UDC PO SCH (20:55)
[2019-01-28] MEDS: Primidone TAB(*) 250 MG PO SCH (20:56)
[2019-01-28] MEDS: Primidone TAB(*) 50 MG PO SCH (20:56)
[2019-01-28] MEDS: ARIPiprazole TAB* 5 MG PO SCH (21:05)
[2019-01-29] MEDS: Lactated Ringers 1000 ML Bag* 1,000 ML IV SCH (00:10)
[2019-01-29] MEDS: ceFAZolin 1 GM ADVAN(*) 1 GM in NS 0.9% 50 ML* 50 ML IVPB SCH ×2 (02:13→10:08)
[2019-01-29] MEDS: oxyCODONE/Acetamin 5/325 MG* TAB PO PRN ×5 (02:16→23:47)
[2019-01-29] MEDS: oxyCODONE TAB* 5 MG TAB PO PRN ×2 (06:28→11:09)
[2019-01-29] MEDS: Insulin LISPRO* 1 UNITS UNIT SUBCUT SCH ×4 (07:53→21:26)
[2019-01-29] MEDS ORDERED: Apixaban* 2.5 MG TAB PO SCH (09:00)
[2019-01-29] MEDS: Gabapentin CAP(*) 400 MG PO SCH ×3 (10:08→21:28)
[2019-01-29] MEDS: Nystatin TOP POWDER* 15 GM BTL TOPICAL SCH ×3 (10:08→21:29)
[2019-01-29] MEDS: LAMOTRIGINE 200 MG PO SCH (10:08)
[2019-01-29] MEDS: Docusate CAP* 100 MG PO SCH ×2 (10:08→21:28)
[2019-01-29] MEDS: Magnesium Hydroxide LIQ* 30 ML UDC PO SCH ×2 (10:08→21:26)
[2019-01-29] MEDS: Vitamin THERAPEUTIC TAB PO SCH (10:08)
[2019-01-29] MEDS: Pantoprazole TAB * 40 MG TAB PO SCH (10:09)
[2019-01-29] MEDS: Citalopram TAB* 40 MG PO SCH (10:09)
[2019-01-29] MEDS: Propranolol TAB* 20 MG PO SCH ×3 (10:43→21:28)
[2019-01-29] MEDS: Cyclobenzaprine TAB* 10 MG PO PRN (11:12)
--- NOTE | 2019-01-29 11:22 | PN ---
Subjective Date of Service: 01/29/19 Interval History: Pt feels well. did stairs today. Still on 1 L02 Objective Active Medications: Acetaminophen (Tylenol Tab*) 650 mg PO Q8H PRN PRN Reason: PAIN OR TEMPERATURE Aripiprazole (Abilify Tab*) 10 mg PO BEDTIME [facility] Last Admin: 01/28/19 21:05 Dose: 10 mg Atorvastatin Calcium (Lipitor*) 40 mg PO BEDTIME [facility] Last Admin: 01/28/19 20:55 Dose: 40 mg Bisacodyl (Dulcolax Supp*) 10 mg OH DAILY PRN PRN Reason: constipation Citalopram Hydrobromide (Celexa Tab*) 40 mg PO QAM [facility] Last Admin: 01/29/19 10:09 Dose: 40 mg Cyclobenzaprine HCl (Flexeril Tab*) 5 mg PO TID PRN PRN Reason: SPASMS Last Admin: 01/29/19 11:12 Dose: 5 mg Dextrose (D50w Syringe 50 Ml*) 12.5 gm IV PUSH .FOR FS < 60 - SS PRN PRN Reason: FS < 60 Diphenhydramine HCl (Benadryl Iv*) 25 mg IV Q6H PRN PRN Reason: itching Docusate Sodium (Colace Cap*) 100 mg PO BID [facility] Last Admin: 01/29/19 10:08 Dose: 100 mg Enoxaparin Sodium (Lovenox(*)) 40 mg SUBCUT Q24H [facility] Gabapentin (Neurontin Cap(*)) 400 mg PO TID [facility] Last Admin: 01/29/19 10:08 Dose: 400 mg Lactated Ringer's (Lactated Ringers 1000 Ml Bag*) 1,000 mls @ 100 mls/hr IV PER RATE [facility] Last Admin: 01/29/19 00:10 Dose: 100 mls/hr Insulin Human Lispro (Humalog*) 0 units SUBCUT ACHS [facility]; Protocol Last Admin: 01/29/19 07:53 Dose: Not Given Lactulose (Lactulose*) 30 ml PO Q6H PRN PRN Reason: constipation Lamotrigine (Lamictal Xr (Nf)) 200 mg PO QAM [facility] Last Admin: 01/29/19 10:08 Dose: 200 mg Magnesium Hydroxide (Milk Of Magnesia Liq*) 30 ml PO BID [facility] Last Admin: 01/29/19 10:08 Dose: 30 ml Magnesium Hydroxide (Milk Of Magnesia Liq*) 30 ml PO Q6H PRN PRN Reason: constipation Morphine Sulfate (Morphine Inj (Syringe))*) 2 mg IV Q2H PRN PRN Reason: PAIN Multivitamins (Theragran Tab*) 1 tab PO DAILY [facility] Last Admin: 01/29/19 10:08 Dose: 1 tab Nystatin (Nystatin Top Powder*) 1 applic TOPICAL TID [facility] Last Admin: 01/29/19 10:08 Dose: Not Given Ondansetron HCl (Zofran Inj*) 4 mg IV Q6H PRN PRN Reason: nausea Oxycodone HCl (Roxycodone Tab*) 10 mg PO Q4H PRN PRN Reason: PAIN - SEVERE Last Admin: 01/29/19 11:09 Dose: 10 mg Oxycodone/Acetaminophen (Percocet 5/325 Tab*) 1 tab PO Q4H PRN PRN Reason: PAIN Last Admin: 01/28/19 18:16 Dose: 1 tab Oxycodone/Acetaminophen (Percocet 5/325 Tab*) 2 tab PO Q4H PRN PRN Reason: PAIN Last Admin: 01/29/19 08:51 Dose: 2 tab Pantoprazole Sodium (Protonix Tab*) 40 mg PO QAM [facility] Last Admin: 01/29/19 10:09 Dose: 40 mg Primidone (Mysoline Tab(*)) 250 mg PO BEDTIME [facility] Last Admin: 01/28/19 20:56 Dose: 250 mg Primidone (Mysoline Tab(*)) 200 mg PO BEDTIME [facility] Last Admin: 01/28/19 20:56 Dose: 200 mg Propranolol HCl (Inderal Tab*) 20 mg PO TID [facility] Last Admin: 01/29/19 10:43 Dose: 20 mg Vital Signs - 8 hr 01/29/19 01/29/19 01/29/19 04:00 04:05 06:27 Temperature 98.2 F Pulse Rate 73 Respiratory 14 17 20 Rate Blood Pressure 119/53 (mmHg) O2 Sat by Pulse 99 98 100 Oximetry 01/29/19 01/29/19 01/29/19 06:28 07:43 07:53 Temperature 98.6 F Pulse Rate 71 Respiratory 20 15 18 Rate Blood Pressure 126/53 (mmHg) O2 Sat by Pulse 93 Oximetry 01/29/19 01/29/19 01/29/19 08:51 09:08 10:08 Temperature Pulse Rate Respiratory 18 18 18 Rate Blood Pressure (mmHg) O2 Sat by Pulse Oximetry 01/29/19 01/29/19 11:09 11:12 Temperature Pulse Rate Respiratory 18 18 Rate Blood Pressure (mmHg) O2 Sat by Pulse Oximetry Oxygen Devices in Use Now: Nasal Cannula Appearance: 58 yo F in NAD, AAOx3 Eyes: No Scleral Icterus, PERRLA Ears/Nose/Mouth/Throat: NL Teeth, Lips, Gums, Mucous Membranes Moist Neck: NL Appearance and Movements; NL JVP, Trachea Midline Respiratory: Symmetrical Chest Expansion and Respiratory Effort, Clear to Auscultation Cardiovascular: NL Sounds; No Murmurs; No JVD Abdominal: NL Sounds; No Tenderness; No Distention, No Hepatosplenomegaly Lymphatic: No Cervical Adenopathy Extremities: No Clubbing, Cyanosis, - - left knee in post op dressings and cryo unit-not uncovered Skin: No Rash or Ulcers, No Nodules or Sclerosis Neurological: Alert and Oriented x 3, NL Muscle Strength and Tone Result Diagrams: 01/29/19 08:31 01/29/19 13:25 Assess/Plan/Problems-Billing Assessment: 58 yo F with h/o HTN, benign tremor, DM2 s/p elective R knee replacement - Patient Problems (1) Knee joint replacement status Comment: as per Dr. Spaulding (2) HTN (hypertension) Comment: controlled, lisinopril held, cont propranolol (3) Benign essential tremor Comment: cont primidone and propranolol (4) DM2 (diabetes mellitus, type 2) Comment: cont ISS, PO meds held (5) DVT prophylaxis Comment: on lovenox as per ortho Status and Disposition: medicine consult, will follow
[2019-01-29] MEDS: Enoxaparin(*) 40 MG/0.4 ML SYR SUBCUT SCH (12:10)
--- NOTE | 2019-01-29 13:24 | PN ---
Progress Note - Progress Note Date of Service: 01/29/19 SOAP: Subjective: []Pt seen at bedside. She denies CP, SOB, dizziness, nausea. Left knee pain is well controlled. She would prefer to go home at DC but is open to rehab if indicated Objective: []Gen: NAD, appears comfortable LLE: left knee dressing CDI, thigh soft, DF/PF intact, DP2+, sensation intact to light touch distally Calves supple and nontender without erythema, edema or palpable cords Assessment: []POD 1 sp LTK Plan: []WBAT PT/OT lovenox 40 mg sq qd x 30 days Encourage IS Plan for home tomorrow, if lacks progression with PT will consider rehab Vital Signs Temp 98.5 F 01/29/19 11:40 Pulse 73 01/29/19 11:40 Resp 18 01/29/19 12:51 BP 156/60 01/29/19 11:40 Pulse Ox 90 01/29/19 11:40 Intake & Output 01/28/19 01/29/19 01/29/19 18:59 06:59 18:59 Intake Total 2560 840 1238 Output Total 500 2750 Balance 0 -191 1238 Weight 231 lb Intake: IV Fluids 2450 883 LR 2400 883 NS 50ML, Cefazolin 2G 50 Medicated IV 115 Cefazolin 115 Oral 110 840 240 Output: Camp 500 2750 Other: # Bowel Movements 0 Estimated Blood Loss <150 Comment Laboratory Last Values POC Glucose (mg/dL) 190 mg/dL (70-100) H 01/29/19 11:47
[2019-01-29 13:41] LABS: Hematocrit 35 % (35-47); Hemoglobin 11.8 g/dL (12.0-16.0); Mean Platelet Volume 7.9 fL (7.4-10.4); Platelet Count 329 10^3/uL (150-450)
[2019-01-29 13:56] LABS: BUN/Creatinine Ratio 14.3 (8-20); Calcium 8.8 mg/dL (8.6-10.3); EGFR African American 83.7 (>60); EGFR Non-African American 69.2 (>60); Potassium 4.1 mmol/L (3.5-5.0)
[2019-01-29] MEDS: ARIPiprazole TAB* 5 MG PO SCH (21:26)
[2019-01-29] MEDS: Atorvastatin* 40 MG TAB PO SCH (21:26)
[2019-01-29] MEDS: Primidone TAB(*) 50 MG PO SCH (21:27)
[2019-01-29] MEDS: Primidone TAB(*) 250 MG PO SCH (21:27)
[2019-01-30] MEDS: oxyCODONE/Acetamin 5/325 MG* TAB PO PRN ×2 (05:04→09:22)
[2019-01-30 06:10] LABS: Hematocrit 31 % (35-47); Hemoglobin 10.8 g/dL (12.0-16.0); Platelet Count 280 10^3/uL (150-450)
[2019-01-30] MEDS: Gabapentin CAP(*) 400 MG PO SCH (09:22)
[2019-01-30] MEDS: Pantoprazole TAB * 40 MG TAB PO SCH (09:22)
[2019-01-30] MEDS: Vitamin THERAPEUTIC TAB PO SCH (09:22)
[2019-01-30] MEDS: Docusate CAP* 100 MG PO SCH (09:22)
[2019-01-30] MEDS: Citalopram TAB* 40 MG PO SCH (09:22)
[2019-01-30] MEDS: Propranolol TAB* 20 MG PO SCH (09:23)
[2019-01-30] MEDS: Magnesium Hydroxide LIQ* 30 ML UDC PO SCH (09:23)
[2019-01-30] MEDS: LAMOTRIGINE 200 MG PO SCH (09:23)
[2019-01-30] MEDS: Nystatin TOP POWDER* 15 GM BTL TOPICAL SCH (09:24)
[2019-01-30] MEDS: Insulin LISPRO* 1 UNITS UNIT SUBCUT SCH ×2 (09:24→13:18)
[2019-01-30 10:39] LABS: EGFR African American 103.3 (>60); EGFR Non-African American 85.4 (>60)
[2019-01-30 11:20] VITALS: BP 143/55
--- NOTE | 2019-01-30 11:58 | PN ---
Progress Note - Progress Note Date of Service: 01/30/19 SOAP: Subjective: []Pt seen at bedside. Denies CP, SOB, dizziness, nausea. Knee pain is well controlled. Has not had BM yet. Objective: []Gen: NAD, appears comfortable LLE: left knee dressing changed, incision CDI, thigh soft, DF/PF intact, DP2+, sensation intact to light touch distally Calves supple and nontender without erythema, edema or palpable cords Assessment: []POD 2 sp LTK Plan: []WBAT PT/OT lovenox 40 mg sq qd x 30 days Encourage IS Plan for home today Bowel set ordered Vital Signs Temp 98.0 F 01/30/19 11:07 Pulse 78 01/30/19 11:07 Resp 16 01/30/19 11:07 BP 143/55 01/30/19 11:07 Pulse Ox 93 01/30/19 11:07 Intake & Output 01/29/19 01/30/19 01/30/19 18:59 06:59 18:59 Intake Total 1748 720 Output Total 250 Balance 1498 720 Intake: IV Fluids 883 LR 883 Medicated IV 115 Cefazolin 115 Oral 750 720 Output: Urine 250 Other: Estimated Void Medium # Voids 1 Laboratory Last Values Hgb 10.8 g/dL (12.0-16.0) L 01/30/19 05:52 Hct 31 % (35-47) L 01/30/19 05:52 Plt Count 280 10^3/uL (150-450) 01/30/19 05:52 MPV 8.0 fL (7.4-10.4) 01/30/19 05:52 Sodium 136 mmol/L (135-145) 01/29/19 13:25 Potassium 4.1 mmol/L (3.5-5.0) 01/29/19 13:25 Chloride 101 mmol/L (101-111) 01/29/19 13:25 Carbon Dioxide 28 mmol/L (22-32) 01/29/19 13:25 Anion Gap 7 mmol/L (2-11) 01/29/19 13:25 BUN 10 mg/dL (6-24) 01/30/19 05:49 Creatinine 0.70 mg/dL (0.51-0.95) 01/30/19 05:49 Est GFR ( Amer) 103.3 (>60) 01/30/19 05:49 Est GFR (Non-Af Amer) 85.4 (>60) 01/30/19 05:49 BUN/Creatinine Ratio 14.3 (8-20) 01/29/19 13:25 Glucose 212 mg/dL (70-100) H 01/29/19 13:25 POC Glucose (mg/dL) 202 mg/dL (70-100) H 01/30/19 07:52 Calcium 8.8 mg/dL (8.6-10.3) 01/29/19 13:25
[2019-01-30] MEDS ORDERED: Polyethylene Glycol 3350* 17 GM PACKET PO PRN (11:59)
[2019-01-30] MEDS ORDERED: Magnesium Hydroxide LIQ* 30 ML UDC PO PRN (11:59)
[2019-01-30] MEDS ORDERED: Senna TAB PO PRN (11:59)
--- NOTE | 2019-01-30 12:14 | DS ---
Orthopedic Discharge Summary - Discharge Summary Date of Admission:01/28/19 Date of Discharge: 01/30/19 Date of Surgery: 01/18/19 Attending Orthopedic Provider: Dr Spaulding Pre-operative Diagnosis: left knee osteoarthritis Operative Procedure: left total knee replacement Disposition of Patient: home Condition of Patient: stable History: SHANTAL LALA is a 58 year old F with years of increasingly severe left knee pain. Patient has failed conservative management and has elected to undergo a eft total knee replacement Hospital Course: SHANTAL was admitted to [facility] on 01/28/19. Patient underwent a left total knee replacement without complication followed by a brief recovery in PACU and transfer to the Short Stay Surgical Unit in stable condition. Our hospitalist service, physical therapy and occupational therapy also participated in this patients care. Post-op day 1: patient was alert and in no acute distress. Dressing was clean, dry and intact. Operative extremity dorsiflexion and plantarflexion intact, sensation intact to light touch distally, DP2+. Post-op day two: dressing was changed, incision was clean , dry and intact. Patient was deemed to be medically and orthopedically stable for discharge. Physical therapy goals were met. Home Medications Medication Instructions Recorded Confirmed Type Atorvastatin* Lipitor 40 MG* 40 mg PO BEDTIME 07/19/15 01/28/19 History Citalopram TAB* [Celexa TAB*] 40 mg PO QAM 07/19/15 01/28/19 History Gabapentin CAP(*) [Neurontin 300 400 mg PO TID 07/19/15 01/28/19 History CAP(*)] Multivitamins/Minerals TAB* 1 tab PO QAM 07/19/15 01/28/19 History [Theragran/minerals TAB*] Omeprazole CAP (NF) [Prilosec CAP* 20 mg PO QAM 07/19/15 01/28/19 History 20 MG] Propranolol TAB* [Inderal TAB*] 20 mg PO TID 07/19/15 01/28/19 History Vit D 1,000 units PO BID 07/19/15 01/28/19 History metFORMIN* [Glucophage 1000 MG TAB 1,000 mg PO BID 07/19/15 01/28/19 History *] ARIPiprazole [Abilify] 10 mg PO BEDTIME 09/16/18 01/28/19 History Lisinopril [Lisinopril 2.5 MG-] 2.5 mg PO QAM 09/16/18 01/28/19 History Melatonin 5 mg PO BEDTIME 09/16/18 01/28/19 History Primidone 200 mg PO BEDTIME 09/16/18 01/28/19 History Primidone [Mysoline] 250 mg PO BEDTIME 09/16/18 01/28/19 History lamoTRIgine [Lamotrigine ER] 200 mg PO QAM 09/16/18 01/28/19 History Acetaminophen [Acetaminophen Extra 500 - 1,000 mg PO QID PRN 01/15/19 01/28/19 History Strength] Acetaminophen TAB* [Tylenol TAB*] 650 mg PO Q8H PRN tab 01/30/19 Rx Docusate CAP* [Colace Cap*] 100 mg PO BID PRN #90 cap 01/30/19 Rx Enoxaparin(*) [Lovenox(*)] 40 mg SUBCUT Q24H #30 syringe 01/30/19 Rx oxyCODONE/Acetamin 5/325 MG* 1 tab PO Q4H PRN tab MDD 10 01/30/19 Rx [Percocet 5/325 TAB*] oxyCODONE/Acetamin 5/325 MG* 2 tab PO Q4H PRN #70 tab MDD 10 01/30/19 Rx [Percocet 5/325 TAB*] Discharge Instructions following Orthopedic Surgery: Activity: * Weight Bearing as tolerated * Continue physical therapy and occupational therapy exercises as shown * attend outpatient physical therapy Wound care: * OK to shower on post-op day 3, no bathing, swimming, or submerging wound. * Use gentle soap, pat dry. Cover with gauze, COREY wrap or tape. Call Orthopedic office for: * Increased drainage * Redness * Increased pain * Fever Go to ER with shortness of breath or chest pain. Diet: * Regular diet * Increase fluids and fiber to prevent constipation. * Continue to use stool softeners, call office if no bowel motion within 48 hours. Medications See Home Medication List in your packet for medications that you should take after discharge. DVT Prophylaxis: Lovenox Dosin mg once a day for 30 days post op. This medication increases bleeding tendency Pain Control: Percocet Dosin/325 mg 1-2 tabs by mouth every 4-6 hours as needed for pain. recommend one tab of percocet every 4 hours, as this has managed your pain well while in the hospital. Maximum of 10 tabs per day. Hold for sedation, wean off to tylenol only as soon as pain allows Please note that Percocet contains Tylenol (acetaminophen). Maximum daily dose of Tylenol is 4000 mg from all sources. Antibiotics are required prior to any dental work. FOLLOW UP: Follow up with [Jasson] Within 10-14 days, call for appointment Please call our office with any questions or concerns ([phone]) [place] to [facility] [place] Follow up with your PCP regarding sleep apnea
[2019-01-30] MEDS: Enoxaparin(*) 40 MG/0.4 ML SYR SUBCUT SCH (13:18)
--- NOTE | 2019-01-30 16:59 | PN ---
Subjective Date of Service: 01/30/19 Interval History: Patient seen this morning. Patient sitting in recliner on assessment. Reports pain is well controlled. Patient currently on room air and saturation 94 to 97% . Denies cp, sob, palpitations, nausea, vomiting, fever, chills. Objective Vital Signs - 8 hr 01/30/19 01/30/19 01/30/19 09:22 11:07 13:18 Temperature 98.0 F Pulse Rate 78 Respiratory 18 16 16 Rate Blood Pressure 143/55 (mmHg) O2 Sat by Pulse 93 Oximetry Oxygen Devices in Use Now: None Appearance: Comfortable, NAD Eyes: No Scleral Icterus Ears/Nose/Mouth/Throat: Clear Oropharnyx, Mucous Membranes Moist Neck: NL Appearance and Movements; NL JVP Respiratory: Symmetrical Chest Expansion and Respiratory Effort, Clear to Auscultation Cardiovascular: NL Sounds; No Murmurs; No JVD, RRR, No Edema Abdominal: NL Sounds; No Tenderness; No Distention Lymphatic: No Cervical Adenopathy Extremities: No Clubbing, Cyanosis Skin: No Rash or Ulcers, - - Dressing CDI Neurological: Alert and Oriented x 3 Nutrition: Taking PO's Result Diagrams: 01/30/19 05:52 01/30/19 05:49 Additional Lab and Data: Laboratory Results - last 24 hr 01/29/19 01/29/19 01/30/19 16:44 21:18 05:49 Hgb Hct Plt Count MPV BUN 10 Creatinine 0.70 Est GFR ( Amer) 103.3 Est GFR (Non-Af Amer) 85.4 POC Glucose (mg/dL) 248 H 179 H 01/30/19 01/30/19 01/30/19 05:52 07:52 12:03 Hgb 10.8 L Hct 31 L Plt Count 280 MPV 8.0 BUN Creatinine Est GFR ( Amer) Est GFR (Non-Af Amer) POC Glucose (mg/dL) 202 H 139 H Microbiology and Other Data: . Assess/Plan/Problems-Billing Assessment: 58 yo F with h/o HTN, benign tremor, DM2 s/p elective R knee replacement - Patient Problems (1) Knee joint replacement status Comment: - Per ortho team (2) Benign essential tremor Comment: - Cont primidone and propranolol (3) DM2 (diabetes mellitus, type 2) Comment: - Currently on SS - May resume PO medications on discharge (4) HTN (hypertension) Comment: - SBPs in 140 to 150s. - Resume home medication of Lisinopril at discharge - Cont propranolol (5) DVT prophylaxis Comment: - Lovenox per ortho Status and Disposition: Medicine consult. Discharge per ortho Attending: Noel Shin
[2019-01-30] MEDS ORDERED: Magnesium Hydroxide LIQ* 30 ML UDC PO SCH (21:00)
[2019-01-30] MEDS ORDERED: Docusate CAP* 100 MG PO SCH (21:00)
== END 2019-01-30 13:43 | disposition home or self-care (01) | DRG 302 ==
LOC: AA 01-28 06:18 → SSU 01-28 11:34
PROVIDERS: ADMIT Orthopaedic Surgery Adult Reconstructive Orthopaedic Surgery; ATTEND Orthopaedic Surgery Adult Reconstructive Orthopaedic Surgery
PROC: 0SRC069 Replacement of Right Knee Joint with Oxidized Zirconium on Polyethylene Synthetic Substitute, Cemented, Open Approach (ICD-10-PCS; principal; 2019-01-28 09:00)
DX: M17.11 Unilateral primary osteoarthritis, right knee (principal); E89.6 Postprocedural adrenocortical (-medullary) hypofunction; K21.9 Gastro-esophageal reflux disease without esophagitis; F41.9 Anxiety disorder, unspecified; F32.9 Major depressive disorder, single episode, unspecified; E78.00 Pure hypercholesterolemia, unspecified; M25.461 Effusion, right knee; G25.0 Essential tremor; E78.2 Mixed hyperlipidemia; E11.42 Type 2 diabetes mellitus with diabetic polyneuropathy; E66.9 Obesity, unspecified; E05.90 Thyrotoxicosis, unspecified without thyrotoxic crisis or storm; I44.7 Left bundle-branch block, unspecified; I10 Essential (primary) hypertension; M25.761 Osteophyte, right knee; Z79.84 Long term (current) use of oral hypoglycemic drugs; Z88.2 Allergy status to sulfonamides; Z83.3 Family history of diabetes mellitus; Z82.49 Family history of ischemic heart disease and other diseases of the circulatory system; Z80.9 Family history of malignant neoplasm, unspecified; Z82.3 Family history of stroke; Z68.38 Body mass index [BMI] 38.0-38.9, adult
CPT/HCPCS: 36415; 80048; 82565; 84520; 85014; 85018; 85049; 88305; 88311; A9270-GY; C1776; G8978-GP-CJ; G8979-GP-CI; G8987-GO-CI; G8988-GO-CI; G8989-GO-CI; J0690; J1100; J1650; J2250; J2405; J2704; J2795; J3010; J3490

== ENCOUNTER 2019-05-01 06:11 | Inpatient (IN) | payer OTHER ==
--- NOTE | 2019-04-23 16:02 | HP ---
Amended report to enter cosigning physician. PREOPERATIVE HISTORY AND PHYSICAL: DATE OF ADMISSION: 05/01/19. ATTENDING PHYSICIAN: Dr. Rosy Spaulding* (dictated by NIRANJAN Hung). CHIEF COMPLAINT: Left knee pain. HISTORY OF PRESENT ILLNESS: Ms. Mckeon is a 59-year-old female, who is having severe left knee pain, which has made it difficult for her to bear weight and walk more than a block. She has aching along the joint line. It is made worse with stair climbing, any prolonged standing and any significant amount of walking. She has tried anti-inflammatories, physical therapy, weight loss, as well as steroid injections without relief. She is seeking surgical intervention with Dr. Spaulding. PAST MEDICAL HISTORY: Hypertension, hypercholesterolemia, osteoarthritis, diverticulitis, type 2 diabetes, depression, anxiety, resting tremor, and morbid obesity. PAST SURGICAL HISTORY: D and C, tonsillectomy, adrenalectomy. She denies anesthetic complications with any of these procedures. CURRENT MEDICATIONS: 1. Primidone 250 mg 1 tab by mouth daily. 2. Primidone 50 mg 4 tablets by mouth in addition to her 250 mg tab. 3. Metformin HCl 1000 mg 1 time p.o. twice daily. 4. Omeprazole 20 mg 1 time p.o. daily. 5. Citalopram hydrobromide 40 mg 1 tab by mouth daily. 6. Atorvastatin calcium 40 mg 1 tab by mouth daily. 7. Vitamin D 1000 units 1 tab by mouth twice daily. 8. Multivitamin adult with iron 1 tab by mouth daily. 9. Propranolol HCl 20 mg 1 tab by mouth 3 times a day. 10. Gabapentin 400 mg 1 capsule by mouth 3 times daily. 11. Lamotrigine ER 200 mg 1 tab by mouth q.a.m. 12. Aripiprazole 10 mg 1 tab by mouth q.h.s. 13. Lisinopril 2.5 mg 1 tab by mouth daily. 14. Melatonin 5 mg 1 tab by mouth daily. 15. Tylenol 500 mg 2 tabs by mouth every 4 hours as needed. 16. Naproxen 500 mg 1 tab by mouth twice daily as needed. ALLERGIES: SULFA. FAMILY HISTORY: Significant for diabetes, heart disease, hypertension, stroke, and cancer. SOCIAL HISTORY: She lives with her sibling and her father who will take care of her postoperatively. She does not work. She denies tobacco, alcohol, or recreational drug use. She admits to being very active. REVIEW OF SYSTEMS: Fourteen systems were reviewed and are positive for bilateral knee pain, decreased vision, constipation, history of kidney stones, chronic back pain, peripheral neuropathy with fatigue, depression and anxiety, and otherwise reports review of systems is negative. PHYSICAL EXAMINATION GENERAL: She is a well-developed, well-nourished female, seated in exam chair, in no acute distress, with appropriate affect. HEENT: Normocephalic, atraumatic. Hearing and vision are grossly intact, with extraocular movements intact. NECK: The trachea is midline and symmetric. CHEST: Lungs are clear to auscultation. No wheezes, rales, or rhonchi appreciated. HEART: Regular rate and rhythm. Normal S1, S2. No murmurs, rubs, or gallops noted. ABDOMEN: Nondistended, but body habitus is limiting. Bowel sounds present. She is nontender to palpation. GENITOURINARY: Deferred. MUSCULOSKELETAL: Left lower extremity: Skin is pink, dry, and intact with no abrasions or open wounds. There is a moderate effusion noted in the knee, but no ecchymosis or erythema. She extends the knee to negative 10 degrees, flexes to 120 with patellofemoral crepitus with range of motion. No varus or valgus instability. No distal edema, varicosities, or hyperreflexia. She has 5/5 strength in 4 planes in the left ankle with intact sensation and a 2+ dorsalis pedis pulse. IMAGING: Radiographs performed previously show [id number] arthritis in the medial and patellofemoral compartments with tricompartmental joint space narrowing, osteophyte formation, and some subchondral sclerosis. ASSESSMENT: Left knee severe osteoarthritis. PLAN: Left total knee replacement with Dr. Spaulding. The patient's questions were answered and she would like to proceed. Medications will be dispensed postoperatively and she will follow up in our office 10 to 14 days postoperatively. NIRANJAN OLSEN [id number]/[facility] #: [id number] [facility]OSPITALAlbina
[~2019-05-01 06:11] MED LIST: Buffered Lidocaine 1% SYRIN* 1 ML/SYRINGE INTRADERM ONE; Famotidine IV* 10 MG/ML 2 ML (20 mg) IV ONE; Lactated Ringers 1000 ML Bag* 1,000 ML IV SCH; Tranexamic Acid 1,000 MG in NS 0.9% 50 ML* (outpatient use) IV SCH
--- OUTSIDE RECORDS SUMMARY | 2019-05-01 06:13 | XMS REPORT | Continuity of Care Document ---
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 Provider Date Mixed hyperlipidemia Ariel Harrell MD Onset: 11/02/2016 Benign essential hypertension Ariel Harrell MD Onset: 11/02/2016 Social History Type Date Description Comments Sex Unknown Tobacco Use Start: Unknown Never Smoked Cigarettes Smoking Status Reviewed: 04/23/19 Never Smoked Cigarettes ETOH Use Denies alcohol use Tobacco Use Start: Unknown Patient denies history of smoking Recreational Drug Use Denies Drug Use Allergies, Adverse Reactions, Alerts Active Allergies Reaction Severity Comments Date Sulfa Drugs 05/24/2015 Medications Active Medications SIG Qnty Indications Ordering Provider Date Multi Vitamin Daily 1 tab po q day Briana Fuentes M.D. 05/26/2015 Tablets Omeprazole 1 by mouth every Unknown 20mg Capsules day Citalopram 1 by mouth every Unknown Hydrobromide day 40mg Tablets Vitamin D3 Maximum 1 a day Unknown Strength 5000Unit Capsules Atorvastatin Calcium 1 by mouth every Unknown 40mg day Tablets Metformin HCL 1 by mouth twice Unknown 1000mg a day Tablets Primidone 4 tabs every Unknown 50mg Tablets night at bedtime Gabapentin take one capsule Unknown 400mg Capsules by mouth three times a day Propranolol HCL 1 by mouth three I10 Unknown 20mg times a day Tablets Lamotrigine 1 tab by mouth Unknown 200mg Tablets every day at bedtime Lisinopril 1 by mouth every Unknown 2.5mg Tablets day Aripiprazole 1 by mouth every Unknown 10mg Tablets day at bedtime Primidone 1 by mouth every Unknown 50mg Tablets day Melatonin ER 1 tab by mouth at Unknown 5mg Tablets bedtime ER Naproxen Take One Tablet Unknown 500mg Tablets By Mouth Twice A Day as Needed Immunizations Description No Information Available Vital Signs Date Vital Result Comment 04/23/2019 8:28am BP Systolic Sitting Right Arm 134 mmHg BP Diastolic Sitting Right Arm 89 mmHg Heart Rate 65 /min Respiratory Rate 16 /min Height 64 inches 5'4" 5'4 Per Patient Weight 226.00 lb BMI (Body Mass Index) 38.8 kg/m2 BSA (Body Surface Area) 2.06 m2 Ledbetter body weight in kilograms 54 kg O2 % BldC Oximetry 95 % ra 09/30/2018 11:29am BP Systolic Sitting Right Arm 118 mmHg BP Diastolic Sitting Right Arm 78 mmHg Heart Rate 58 /min Respiratory Rate 18 /min Height 64 inches 5'4" 5'4 Per Patient Weight 239.00 lb BMI (Body Mass Index) 41.0 kg/m2 BSA (Body Surface Area) 2.11 m2 Ledbetter body weight in kilograms 54 kg O2 % BldC Oximetry 97 % Ora Results Description No Information Available Procedures Date Code Description Status 04/23/2019 70249 EKG-Tracing And Report Completed 01/08/2009 02750679 Colonoscopy Completed Medical Devices Description No Information Available Encounters Type Date Location Provider Dx Diagnosis Office Visit 04/23/2019 Cardiology Office Joselito Luis Z01.810 Encounter for 8:20a NIRANJAN Valdez preprocedural cardiovascular examination I44.7 Left bundle-branch block, unspecified I10 Essential (primary) hypertension Assessments Date Code Description Provider 04/23/2019 Z01.810 Encounter for preprocedural cardiovascular Joselito Luis PA examination 04/23/2019 I44.7 Left bundle-branch block, unspecified Joselito Luis PA 04/23/2019 I10 Essential (primary) hypertension Joselito Luis PA Plan of Treatment Future Appointment(s):04/23/2020 9:40 am - Joselito Luis PA at Cardiology [facility]8404/23/2019 - Joselito Luis, PAZ01.810 Encounter for preprocedural cardiovascular examinationComments:As above.I44.7 Left bundle- branch block, unspecifiedComments:Monitor.I10 Essential (primary) hypertensionComments:Monitor. No changes.AllFollow up:1 year - Patient will call for sooner appt if symptoms arise. Functional Status Functional Condition Comment Date Status Independent with all ADL's Active Glasses Active Mental Status Description No Information Available Referrals Description No Information Available
--- OUTSIDE RECORDS SUMMARY | 2019-05-01 06:13 | XMS REPORT | Continuity of Care Document ---
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 Problems Provider Date Mixed hyperlipidemia [...] kg/m2 BSA (Body Surface Area) 2.06 m2 Salado body weight in kilograms 54 kg O2 % BldC Oximetry 95 % ra 09/30/2018 11:29am BP Systolic Sitting Right Arm 118 mmHg BP Diastolic Sitting Right Arm 78 mmHg Heart Rate 58 /min Respiratory Rate 18 /min Height 64 inches 5'4" 5'4 Per Patient Weight 239.00 lb BMI (Body Mass Index) 41.0 kg/m2 BSA (Body Surface Area) 2.11 m2 [place] body weight in kilograms 54 kg O2 % BldC Oximetry 97 % Ora Results Description No Information Available Procedures Date Code Description Status 04/23/2019 19005 EKG-Tracing And Report Completed 01/08/2009 [id number] Colonoscopy Completed Medical Devices Description No Information [...] Treatment Future Appointment(s):04/23/2020 9:40 am - Joselito Luis, PA at Cardiology [facility]7004/23/2019 - Joselito Luis, PAZ01.810 Encounter for preprocedural [...]
--- OUTSIDE RECORDS SUMMARY | 2019-05-01 06:14 | XMS REPORT | Continuity of Care Document ---
:1960 External Reference #:[id number] Author Name Rosy Spaulding M.D. (transmitted by agent of provider Julissa Wagner) Address [address] [place] [address] [place] [address] Care Team Providers Name Role Phone Sabino Calderon DPM - Student in an Care Team Information Marking Devices Assembler Organized Health Care Education/Training Program Ariel Elkins MD - Endocrinology, Care Team Information Marking Devices Assembler [phone] Diabetes & Metabolism Armida Quarles M.D. 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 Onset: 2013 cause Non-toxic uninodular goiter David Valentino M.D. Onset: 11/13/2013 Essential tremor Rozina Stevens M.D. Onset: 10/01/2015 Memory impairment Rozina Stevens M.D. Onset: 10/01/2015 Localized, primary osteoarthritis Rosy Spaulding M.D. Onset: 08/26/2018 Social History Type Date Description Comments Sex Unknown Tobacco Use Start: Unknown Never Smoked Cigarettes Tobacco Use Start: Unknown Never Smoked Cigars Tobacco Use Start: Unknown Never Smoked A Pipe Smokeless Tobacco Never Used Smokeless Tobacco ETOH Use Denies alcohol use Tobacco Use Start: Unknown Patient has never smoked Recreational Drug Use Denies Drug Use Smoking Status Reviewed: 04/23/19 Patient has never smoked Exercise Type/Frequency Exercises sporadically Allergies, Adverse Reactions, Alerts Active Allergies Reaction Severity Comments Date Sulfa 05/08/2012 Medications Active Medications SIG Qnty Indications Ordering Date Provider Primidone take 1 tablet by 90tabs Lenka Devlin, 02/28/2017 250mg Tablets mouth daily as M.D. directed. taking 1 tab with 4 tabs of 50 mg Primidone 4 tabs by mouth 120tabs G25.0 Lenka Devlin, 05/12/2016 50mg Tablets in addition to M.D. 250 mg tab. Metformin HCL 1 po bid 60tabs Unknown 1000mg Tablets Omeprazole 1 po qd 30caps Unknown 20mg Capsules DR Citalopram 1 by mouth every 30tabs Unknown Hydrobromide day 40mg Tablets Atorvastatin Calcium 1 by mouth every Unknown day 40mg Tablets Vitamin D3 1 tab by mouth 90caps Unknown 1000Unit twice a day Capsules Multivitamin Adult 1 by mouth every Unknown With Iron day Tablets Propranolol HCL take one tablet 90tabs Lenka Devlin, 20mg by mouth three M.D. Tablets times a day Gabapentin 1 cap by mouth Unknown 400mg three times daily Capsules Lamotrigine ER take 1 pill in in Unknown 200mg the morning Tablets ER 24HR Aripiprazole 1 by mouth every Unknown 10mg night at bedtime Tablets Lisinopril 1 by mouth every 90tabs Unknown 2.5mg day Tablets Melatonin take one by mouth Unknown 5mg Capsules each day Tylenol 2 tabs by mouth Unknown 500mg Tablets every 4 hours as needed Naproxen 1 by mouth twice Unknown 500mg Tablets a day Medications Administered in Office Medication SIG Qnty Indications Ordering Provider Date Records Fee Lenka Devlin M.D. 03/13/2019 Injection Celestone 3 mg and 3mg Jasson Cutler MD 06/18/2018 Injection Celestone 3 mg and 3mg Jasson Cutler MD 06/18/2018 Injection Immunizations Description No Information Available Vital Signs Date Vital Result Comment 04/23/2019 11:53am Height 64 inches 5'4" Weight 224.00 lb Heart Rate 63 /min BP Systolic 146 mmHg BP Diastolic 78 mmHg Body Temperature 97.9 F Pain Level 3 BMI (Body Mass Index) 38.4 kg/m2 03/12/2019 10:26am Height 64 inches 5'4" Weight 230.00 lb Heart Rate 82 /min BP Systolic Sitting 122 mmHg BP Diastolic Sitting 70 mmHg Respiratory Rate 14 /min Pain Level 3 O2 % BldC Oximetry 96 % BMI (Body Mass Index) 39.5 kg/m2 Results Test Date Facility Test Result H/L Range Note Urinalysis Profile 01/15/2019 [facility] Urine Color Sandhya [address] [place] [address] [phone] Urine Appearance Cloudy Urine Specific [place] 1.027 Normal 1.010-1.030 Urine pH 5.0 Normal 5-9 Urine Urobilinogen Negative Negative Urine Ketones [...] Hyaline Casts Present Abnormal Absent Inr/Protime 01/15/2019 [facility] Inr 0.93 Normal 0.82-1.[address] [place] [address] [phone] Laboratory test 01/15/2019 [facility] Partial 33.2 Normal 26.0 -38.[address] [place] [address] Time PTT [phone] CBC Auto Diff 01/15/2019 [facility] White Blood 7.6 10^3/uL Normal 3.5-10.[address] [place] [address] [phone] Red Blood Count 4.05 10^6/uL Normal 3.70-4.87 Hemoglobin 13.0 g/dL Normal 12.0-16.0 Hematocrit 39 % Normal 35-47 Mean Corpuscular Volume 96 fL Normal 80-97 Mean Corpuscular Hemoglobin 32 pg High 27-31 Mean Corpuscular HGB Conc 33 g/dL Normal 31-36 Red Cell Distribution Width 14 % Normal 10.5-15 Platelet Count 321 10^3/uL Normal 150-450 Mean Platelet Volume 8.1 fL Normal 7.4-10.4 Abs Neutrophils 4.0 10^3/uL Normal 1.5-7.7 Abs Lymphocytes 2.4 10^3/uL Normal 1.0-4.8 Abs Monocytes 0.6 10^3/uL Normal 0-0.8 Abs Eosinophils 0.6 10^3/uL Normal 0-0.6 Abs Basophils 0.0 10^3/uL Normal 0-0.2 Abs Nucleated RBC 0.0 10^3/uL Granulocyte % 53.0 % Lymphocyte % 31.2 % Monocyte % 7.7 % Eosinophil % 7.7 % Basophil % 0.4 % Nucleated Red Blood Cells % 0.0 Comp Metabolic 01/15/2019 [facility] Sodium 140 mmol/L Normal 135-[address] [place] [address] [phone] Chloride 107 mmol/L Normal 101-111 Co2 Carbon Dioxide 26 mmol/L Normal 22-32 Glucose 81 mg/dL Normal 70-100 Blood Urea Nitrogen 22 mg/dL Normal 6-24 Creatinine 0.87 mg/dL Normal 0.51-0.95 BUN/Creatinine Ratio 25.3 High 8-20 Calcium 9.5 mg/dL Normal 8.6-10.3 Total Protein 6.6 g/dL Normal 6.4-8.9 Albumin 4.1 g/dL Normal 3.2-5.2 Globulin 2.5 g/dL Normal 2-4 Albumin/Globulin Ratio 1.6 Normal 1-3 Total Bilirubin 0.20 mg/dL Normal 0.2-1.0 Alkaline Phosphatase 70 U/L Normal 34-104 Alt 30 U/L Normal 7-52 Ast 29 U/L Normal 13-39 Egfr Non- 66.4 >60 Egfr 80.4 >60 2 Potassium 5.2 mmol/L High 3.5-5.0 Anion Gap 7 mmol/L Normal 2-11 Type & Screen 01/15/2019 [facility] Patient Blood Type A Positive [address] [place] [address] [phone] Antibody Screen NEGATIVE Urine Culture And 01/15/2019 [facility] Urine Culture SEE RESULT [address] [place] [address] [phone] 1 Standard intensity warfarin therapeutic range: 2.0-3.0 [...] (or dialysis) 3 SEE RESULT BELOW Name: MCKEONMAGALIS M : [address]: Rosy Spaulding MD Acct: [id number] Unit: [id number] AGE: 58 Location: [facility] Re01/15/19 SEX: F Status: REG REF SPEC: [id number] KIKO: 01/15/19-[address] [facility] [address]: Rosy Spaulding MD REQ: [id number] RECD: 01/15/19 STATUS: TOREY FELIZ DR: Armida Quarles MD _ SOURCE: URINE SPDESC: ORDERED: Urine Culture QUERIES: Urine Source: Clean Catch Procedure Result Reported Site Urine Culture Final 01/17/19- 1220 ML No growth of clinically significant organisms * ML - Main Lab . END OF REPORT DEPARTMENT OF PATHOLOGY, [address] [place] [address] Roque Multani M.D. Director [facility] # [id number] Procedures Date Code Description Status 01/28/2019 63910 TKR Total Knee Replacement Completed 01/28/2019 15190 TKR Total Knee Replacement Completed Medical Devices Description No Information Available Encounters Type Date Location Provider Dx Diagnosis Office Visit 03/12/2019 Orthopedic Rosy Spaulding, Z96.651 Presence of right 10:15a [facility] artificial knee joint M25.562 Pain in left knee M25.462 Effusion, left knee M17.12 Unilateral primary osteoarthritis, left knee Office Visit 02/17/2019 Elliott/Susana Og E11.9 Type 2 diabetes 9:00a [facility] Devlin mellitus without Home Security Alarm Installer complications G25.0 Essential tremor Office Visit 01/30/2019 9:57a [facility] G25.0 Essential Assoc,obdulio Chandler NP tremor Hospitalists E11.9 Type 2 diabetes mellitus without complications I10 Essential (primary) hypertension Z96.659 Presence of unspecified artificial knee joint Office Visit 01/29/2019 9:57a [facility], I10 Essential Assoc,obdulio Saleh (primary) Hospitalists hypertension G25.0 Essential tremor E11.9 Type 2 diabetes mellitus without complications Z96.659 Presence of unspecified artificial knee joint Office Visit 01/28/2019 [facility] [place], E11.9 Type 2 diabetes 9:56a Assocobdulio M.D. mellitus without Hospitalists complications F41.9 Anxiety disorder, unspecified F32.9 Major depressive disorder, single episode, unspecified G25.0 Essential tremor K21.9 Gastro-esophageal reflux disease without esophagitis I10 Essential (primary) hypertension Assessments Date Code Description Provider 03/12/2019 Z96.651 Presence of right artificial knee joint Rosy Spaulding M.D. 03/12/2019 M25.562 Pain in left knee Rosy Spaulding M.D. 03/12/2019 M25.462 Effusion, left knee Rosy Spaulding M.D. 03/12/2019 M17.12 Unilateral primary osteoarthritis, left knee Rosy Spaulding M.D. 02/17/2019 E11.9 Type 2 diabetes mellitus without Lenka Devlin M.D. complications 02/17/2019 G25.0 Essential tremor Lenka Devlin M.D. 02/10/2019 M17.11 Unilateral primary osteoarthritis, right knee Rosy Spaulding M.D. 02/10/2019 I10 Essential (primary) hypertension Rosy Spaulding M.D. 02/10/2019 Z47.1 Aftercare following joint replacement surgery Rosy Spaulding M.D. 02/10/2019 Z96.651 Presence of right artificial knee joint Rosy Spaulding M.D. 01/30/2019 Z47.1 Aftercare following joint replacement surgery NIRANJAN Massey 01/30/2019 Z96.652 Presence of left artificial knee joint NIRANJAN Massey 01/30/2019 G25.0 Essential tremor Olga Shortle, MOCCASIN SEWER 01/30/2019 E11.9 Type 2 diabetes mellitus without Olga Shortle, MOCCASIN SEWER complications 01/30/2019 I10 Essential (primary) hypertension Olga Shortle, MOCCASIN SEWER 01/30/2019 Z96.659 Presence of unspecified artificial knee joint Olgaeder Chandler, MOCCASIN SEWER 01/29/2019 Z47.1 Aftercare following joint replacement surgery NIRANJAN Massey 01/29/2019 Z96.652 Presence of left artificial knee joint NIRANJAN Massey 01/29/2019 I10 Essential (primary) hypertension Ana Laura Berry M.D. 01/29/2019 G25.0 Essential tremor Ana Laura Berry M.D. 01/29/2019 E11.9 Type 2 diabetes mellitus without Ana Laura Berry M.D. complications 01/29/2019 Z96.659 Presence of unspecified artificial knee joint Ana Laura Berry M.D. 01/28/2019 M17.11 Unilateral primary osteoarthritis, right knee NIRANJAN Sykes 01/28/2019 E11.9 Type 2 diabetes mellitus without Ana Laura Berry M.D. complications 01/28/2019 M17.11 Unilateral primary osteoarthritis, right knee Rosy Spaulding M.D. 01/28/2019 F41.9 Anxiety disorder, unspecified Ana Laura Berry M.D. 01/28/2019 F32.9 Major depressive disorder, single episode, Ana Laura Berry M.D. unspecified 01/28/2019 G25.0 Essential tremor Ana Laura Berry M.D. 01/28/2019 K21.9 Gastro-esophageal reflux disease without Ana Laura Berry M.D. esophagitis 01/28/2019 I10 Essential (primary) hypertension Ana Laura Berry M.D. 01/15/2019 M25.561 Pain in right knee Rosy Spaulding M.D. 01/15/2019 M25.461 Effusion, right knee Rosy Spaulding M.D. 01/15/2019 M17.0 Bilateral primary osteoarthritis of knee Rosy Spaulding M.D. Plan of Treatment Future Appointment(s):05/12/2019 9:45 am - Rosy Spaulding M[facility] at [facility]05/01/2019 11:45 am - NIESHA Stiles at [facility]05/01/2019 11:45 am - Andre Dawkins PA-C at [facility]05/01/2019 11:45 am - Rosy Spaulding M.D. at [facility]08/26/2019 10:00 am - Lenka Devlin M.D. at [facility] Functional Status Description No Information Available Mental Status Description No Information Available Referrals Description No Information Available
[2019-05-01] MEDS ORDERED: Famotidine IV* 10 MG/ML 2 ML (20 mg) ONE (06:56)
[2019-05-01] MEDS ORDERED: ceFAZolin 2 GM in NS PREMIX(*) 2 GM/100 ML BAG IVPB ONE (06:56)
[2019-05-01] MEDS ORDERED: Buffered Lidocaine 1% SYRIN* 1 ML/SYRINGE INTRADERM ONE (06:56)
[2019-05-01] MEDS ORDERED: ROPIVACAINE 5 MG/ML 30 ML BTL (0.5%) ONE ×2 (07:10→08:31)
[2019-05-01] MEDS ORDERED: Lidocaine 1% MPF ** 5 ML VIAL ONE (08:31)
[2019-05-01] MEDS ORDERED: Midazolam* 1 MG/ML 5 ML VIAL (5 MG) ONE (08:51)
[2019-05-01] MEDS ORDERED: fentaNYL* 50 MCG/ML 2 ML VIAL (100 MCG VIAL) ONE (08:51)
[2019-05-01] MEDS ORDERED: KETAMINE HCL* 50 MG/ML 10 ML VIAL ONE (09:23)
[2019-05-01] MEDS ORDERED: Ondansetron INJ* 2 MG/ML VIAL ONE (09:44)
[2019-05-01] MEDS ORDERED: Dexamethasone IV* 4 MG/ML 1 ML (4 MG) ONE (09:44)
[2019-05-01] MEDS ORDERED: Lidocaine 2% PF * 5 ML VIAL ONE (09:44)
[2019-05-01] MEDS ORDERED: Propofol* 10 MG/ML 20 ML BTL ONE ×2 (09:44→10:18)
[2019-05-01] MEDS ORDERED: Ketorolac INJ* 30 MG/ML 1 ML VIAL ONE (09:44)
[2019-05-01] MEDS ORDERED: oxyCODONE/Acetamin 5/325 MG* TAB PO PRN ×2 (10:58→11:41)
[2019-05-01] MEDS ORDERED: DiMENhydriNATE IV* 50 MG/ML VIAL IV PUSH PRN (10:58)
[2019-05-01] MEDS ORDERED: Naloxone* 0.4 MG/ML 1 ML VIAL IV PRN (10:58)
[2019-05-01] MEDS ORDERED: HYDROmorphone INJ1* 1 MG/ML SYRINGE IV PRN (10:58)
[2019-05-01] MEDS ORDERED: Ondansetron ODT TAB* 4 MG PO PRN (11:41)
[2019-05-01] MEDS ORDERED: diPHENhydraMINE IV* 50 MG/ML 1 ml VIAL (BENADRYL) IV PRN (11:41)
[2019-05-01] MEDS ORDERED: diPHENhydraMINE PO* 25 MG PO PRN (11:41)
[2019-05-01] MEDS ORDERED: Cyclobenzaprine TAB* 10 MG PO PRN (11:41)
[2019-05-01] MEDS ORDERED: Magnesium Hydroxide LIQ* 30 ML UDC PO PRN (11:41)
[2019-05-01] MEDS ORDERED: Morphine INJ* 2 MG/ML 1 ML SYRINGE (TWO MG - NEW SYRINGE VERSION) IV PRN (11:41)
[2019-05-01] MEDS ORDERED: Ondansetron INJ* 2 MG/ML VIAL IV PRN (11:41)
[2019-05-01] MEDS ORDERED: Dextrose 50% VIAL 50 ml IV PUSH PRN (12:28)
[2019-05-01] MEDS: Lactated Ringers 1000 ML Bag* 1,000 ML IV SCH ×2 (13:26→23:40)
--- NOTE | 2019-05-01 14:01 | CONS ---
CC: Dr. Spaulding; Dr. Quarles; Dr. Devlin; Dr. Emir Issa * CONSULTATION REPORT: DATE OF CONSULT: 05/01/19 PRIMARY CARE PROVIDER: Dr. Armida Quarles. REQUESTING PHYSICIAN: The patient's orthopedic surgeon who requested the consult is Dr. Spaulding. REASON FOR CONSULT: Medical co-management of the patient with diabetes and hypertension and status post elective left knee replacement. CHIEF COMPLAINT: "I feel numb." HISTORY OF PRESENT ILLNESS: Magalis Mckeon is a 59-year-old female who is being seen in postoperative unit after her left total knee replacement. The patient is currently feeling numb from the waist down due to her recent spinal anesthesia. Otherwise, she has no other complaints. She is seen for medical management of diabetes that she has had for several years now. PAST MEDICAL HISTORY: 1. History of essential tremor. 2. History of depression. 3. History of PTSD due to childhood trauma. 4. History of diabetes type 2, non-insulin dependent. 5. Obesity. 6. History of "memory issues." 7. History of hypertension. 8. Hyperlipidemia. 9. Lower back pain. 10. Osteoarthritis, status post right total knee replacement in the past and left knee replacement today. 11. Status post adrenalectomy for a benign tumor. 12. History of left bundle branch block, with the cardiologists being Dr. Emir Issa and Ms. Luis from [facility]. CURRENT MEDICATIONS AT HOME: Include: 1. Metformin 1000 mg b.i.d. 2. Lamotrigine 200 mg q.a.m. 3. Propranolol 20 mg 3 times a day. 4. Primidone 250 mg at bedtime together with another dose of 200 mg at bedtime , so the total dose of primidone the patient takes at home is 450 mg at bedtime. 5. Omeprazole 20 mg daily. 6. Naproxen 500 mg up to 4 times a day p.r.n. 7. Multivitamin 1 tablet daily. 8. Melatonin 5 mg at bedtime. 9. Lisinopril 2.5 mg daily. 10. Gabapentin 400 mg 3 times a day. 11. Celexa 30 mg daily. 12. Vitamin D3 1000 units b.i.d. 13. Lipitor 40 mg at bedtime. 14. Acetaminophen on a p.r.n. basis. 15. Abilify 10 mg at bedtime. ALLERGIES: SULFA. FAMILY HISTORY: Positive for brother with prostate cancer. Mother with history of mitral valve prolapse, due to complications of diabetes and heart disease. SOCIAL HISTORY: The patient is currently not working, lives with her father and brother. As her surrogate, she named her brother, Erik. She denies any tobacco, alcohol, or drug use. She is a full code. REVIEW OF SYSTEMS: Please see history of present illness. All the remaining 12 systems were reviewed with the patient and were otherwise negative. PHYSICAL EXAM: Blood pressure of 137/76, heart rate of 79 and regular, respiratory rate 19, oxygen saturation 97% on 2 L of oxygen via nasal cannula, temperature of 97.5. General: The patient is a pleasant 59-year-old female, who is in no acute distress. Alert, awake, and oriented x3. HEENT: Head: Atraumatic, normocephalic. Eyes: Pupils are equal, reactive to light and accommodation. Oropharynx is clear. Mucosa moist. Neck: Supple. No JVD. No bruits bilaterally. Cardiovascular: Regular rate and rhythm. No murmur. Respiratory: Clear to auscultation bilaterally. Abdomen: Soft, nontender. Bowel sounds are present in all 4 quadrants. Extremities: There is no edema. Left knee is in postoperative dressings that were not removed. Pedal pulses are 2+ bilaterally. Neurologic Evaluation: Cranial nerves II through XII grossly intact. Motor strength is 5/5 bilaterally. LABORATORY DATA: None obtained in the past couple of days. ASSESSMENT AND PLAN: 1. In regards to the patient's postoperative management status post left knee, we will leave it up to Dr. Spaulding's service. 2. The patient is diabetic type 2, on metformin, which is going to be held. She is going to be placed on insulin sliding scale. 3. For her benign tremor, propranolol as well as primidone are going to be continued. 4. For gastroesophageal reflux disease, continue the patient's Prilosec. 5. For DVT prophylaxis, the patient was initially started on Eliquis, but that is interacting with primidone. Primidone makes the anticoagulation with Eliquis less effective. At this point, I briefly discussed it with Dr. Spaulding. The patient is going to be placed on Lovenox postoperatively. 6. The patient's code status is full and her surrogate is her brother as mentioned above. 7. In regards to the patient's hypertension management, I will hold the patient 's lisinopril postoperatively. 8. For the patient's anxiety and depression, lamotrigine as well as Celexa and Abilify are going to be continued. TIME SPENT: Approximately 55 minutes were spent on consultation of this patient , more than half that time was spent [id number] with the patient during the interview and physical exam. Thank you very much for allowing our group to participate in your patient's care. We will follow on a daily basis. [id number]/[facility] #: [id number] UZIEL
--- NOTE | 2019-05-01 14:31 | PN ---
Progress Note - Progress Note Date of Service: 05/01/19 SOAP: Subjective: [Pt was seen lying in bed today. She states that she is doing well. Pain is well controlled at this point. She denies any chest pain, SOB. ] Objective: [MSK, LLE: Dressing is c/d/i. +df/pf. NVI. ] Vital Signs Temp 97.5 F 05/01/19 13:29 Pulse 56 05/01/19 13:29 Resp 16 05/01/19 13:29 BP 142/63 05/01/19 13:29 Pulse Ox 98 05/01/19 13:29 Intake & Output 04/30/19 05/01/19 05/01/19 18:59 06:59 18:59 Intake Total 1999 Output Total 250 Balance 1750 Weight 221 lb Intake: IV Fluids 1999 LR 1999 Output: Camp 250 Assessment: [POD 0 LTKA ] Plan: [Continue with pain medication Continue with abx Start PT tomorrow. ]
[2019-05-01] MEDS: Acetaminophen TAB* 325 MG PO SCH ×2 (14:32→22:01)
[2019-05-01] MEDS: Propranolol TAB* 20 MG PO SCH ×2 (14:48→21:27)
[2019-05-01] MEDS: Gabapentin CAP(*) 400 MG PO SCH ×2 (14:48→21:28)
[2019-05-01] MEDS: oxyCODONE TAB* 5 MG TAB PO PRN ×2 (14:49→19:47)
[2019-05-01] MEDS: oxyCODONE/Acetamin 5/325 MG* TAB PO PRN ×2 (15:43→23:42)
[2019-05-01] MEDS: Insulin LISPRO* 1 UNITS UNIT SUBCUT SCH ×2 (16:59→21:28)
[2019-05-01] MEDS: ceFAZolin 1 GM ADVAN(*) 1 GM in NS 0.9% 50 ML* 50 ML IVPB SCH (17:32)
--- NOTE | 2019-05-01 17:59 | OP ---
Operative Report - Blank - Operative Report Date of Operation: 05/01/19 Note: SHANTAL LALA 1960 Date of Surgery: 05/01/19 Rosy Spaulding MD Horticultural Farmer: Danielle UREÑA did help throughout the procedure with preparation of the knee, wound retraction, manipulation of the knee, and wound closure. Anesthesiologist: Tiburcoi Burroughs MD Anesthesia Type: Spinal Preoperative Diagnosis: Left severe degenerative osteoarthritis of the knee with valgus deformity Postoperative Diagnosis: As above Procedure Performed: Left Total Knee Arthroplasty Tourniquet time: 41 minutes Complications: None Specimen: Bone and cartilage from the left knee joint sent to pathology. Hardware Used: Cemented Issa and Nephew total knee hardware was used - For the femur a size 5 left narrow oxinium legion posterior stabilized femoral component , for the tibia a size 3 left rex II tibial baseplate, for the insert a size 9mm 3-4 posterior stabilized articular polyethylene insert, and for the patella a size 32 3-peg all poly patella. Brief History/Indication: SHANTAL LALA was known in clinic and had a history of severe left knee pain and swelling. She failed conservative treatment with anti- inflammatories, pain pills, intra-articular injections and physical therapy. She elected to undergo left total knee arthroplasty due to continued pain and decreased quality of life. Radiographs showed severe end stage osteoarthritis of the knee with bone on bone contact. Informed consent was obtained from the patient. She understood the risks of surgery included but were not limited to: bleeding, infection, damage to nearby structures, intraoperative fracture, nerve palsy, failure of the hardware, early loosening, knee stiffness or loss of motion, anesthesia complications, stroke, heart attack, blood clot and . She wished to proceed. Intra-Operative Findings: Intraoperatively the patient was noted to have severe loss of cartilage in all 3 compartments of the knee. Description of the Procedure: SHANTAL LALA was identified in the preanesthesia unit. Her left knee was marked as the correct operative side. Informed consent was signed and placed in the chart. The patient was taken to the operating room and placed under anesthesia without complication. A doyle catheter was placed. A tourniquet was placed on the left thigh. The left lower extremity was prepped and draped in the usual sterile fashion. Preoperative time-out was made to correctly identify the patient, side and site. Appropriate intraoperative antibiotics were given within one hour of incision. Tourniquet was inflated. A midline incision was made and carried sharply down to the extensor mechanism. A new 10 blade was used to make a standard medial parapatellar arthrotomy. The patella was subluxed laterally. Electrocautery was used to dissect soft tissue off the superomedial tibia to the midsagittal plane. The knee was flexed up. The anterior horn of the lateral meniscus and the ACL were sharply incised. A drill was used to enter the distal femur. The intramedullary distal femoral cutting guide was pinned on the distal femur. The oscillating saw was used to make the distal femoral cut. The external rotation guide was pinned on the distal femur and the distal femur was sized to a size 5. The size 5 multi-cutting jig was pinned on the distal femur. The oscillating saw was used to make the appropriate 4 chamfer cuts. Next the PCL was completely released. The extramedullary tibial cutting guide was pinned on the proximal tibia and the oscillating saw was used to make the proximal tibial cut perpendicular to the mechanical axis of the tibia. The bone was carefully removed. The knee was brought out into full extension. The spacer block was placed and had excellent fit with the knee in full extension. The medial and lateral ligaments were well balanced. The flexion and extension gaps were well balanced. The knee was flexed up. Lamina electric powerline examiner was placed both medially and laterally. Any remaining meniscus was removed with electrocautery. Curved osteotome was used to remove any posterior osteophytes. The tibial tray and drop chi were placed and confirmed a satisfactory tibial cut. The size 5 left narrow femoral trial was impacted onto the distal femur. This trial had excellent fit and stability. The box for the posterior stabilized implant was prepared using a box cut osteotome and a reamer. Next a tibial tray trial and 9 mm insert trial was placed. The knee was taken through a range of motion and had full extension to 130 degrees of flexion. Patellofemoral tracking was satisfactory. The patella was inverted and sized to a size 32. Three peg holes were drilled through the size 32 drill guide. The trial patella was placed and the knee was taken through a range of motion. There was satisfactory patellofemoral tracking. All trials were removed. The tibia was subluxed anteriorly and sized to a size 3. The proximal tibial was prepared with a size 3 keel punch. All bony cut surfaces were irrigated with sterile saline and dried. Final implants were cemented into place starting with the tibia, followed by the femur, and last the patella. A 9 mm insert trial was placed and the knee was brought into full extension. Tourniquet was turned down and the knee was copiously irrigated with sterile saline. Electrocautery was used to obtain meticulous hemostasis. Once the cement had fully cured, the insert trial was removed. Any excess cement was removed from around the hardware and capsule. Final insert chosen was a 9 mm posterior stabilized Rex II articular insert size 3-4. Stability of the insert was checked and noted to be stable. The extensor mechanism was closed using number 1 vicryls. The rest of the incision was closed in a layered fashion using 0 and 2-0 vicryls. The skin was closed using 3-0 nylon suture. Sterile xeroform, 4x4s and webril were used to cover the incision. Daniel wrap and cold pack were used to cover the dressings. The patients anesthesia was reversed without difficulty. She was taken to the PACU in stable condition. Intended weight-bearing will be as tolerated.
[2019-05-01] MEDS: ARIPiprazole TAB* 5 MG PO SCH (21:27)
[2019-05-01] MEDS: Primidone TAB(*) 50 MG PO SCH (21:27)
[2019-05-01] MEDS: Melatonin 3 MG TAB PO SCH (21:27)
[2019-05-01] MEDS: Atorvastatin* 40 MG TAB PO SCH (21:27)
[2019-05-01] MEDS: Primidone TAB(*) 250 MG PO SCH (21:28)
[2019-05-01] MEDS: Docusate CAP* 100 MG PO SCH (21:28)
[2019-05-01] MEDS: Magnesium Hydroxide LIQ* 30 ML UDC PO SCH (21:29)
[2019-05-02] MEDS: ceFAZolin 1 GM ADVAN(*) 1 GM in NS 0.9% 50 ML* 50 ML IVPB SCH ×2 (01:17→09:32)
[2019-05-02] MEDS: oxyCODONE/Acetamin 5/325 MG* TAB PO PRN ×3 (06:06→17:19)
[2019-05-02] MEDS: Acetaminophen TAB* 325 MG PO SCH ×3 (06:15→23:28)
[2019-05-02 07:41] LABS: Hematocrit 31 % (35-47); Hemoglobin 10.5 g/dL (12.0-16.0); Mean Platelet Volume 8.4 fL (7.4-10.4); Platelet Count 263 10^3/uL (150-450)
[2019-05-02 07:57] LABS: BUN/Creatinine Ratio 18.2 (8-20); Calcium 8.5 mg/dL (8.6-10.3); EGFR African American 92.2 (>60); EGFR Non-African American 76.2 (>60); Potassium 4.1 mmol/L (3.5-5.0)
[2019-05-02] MEDS ORDERED: Apixaban* 2.5 MG TAB PO SCH (09:00)
[2019-05-02] MEDS: Insulin LISPRO* 1 UNITS UNIT SUBCUT SCH ×4 (09:12→20:20)
[2019-05-02] MEDS: Enoxaparin(*) 40 MG/0.4 ML SYR SUBCUT SCH (09:26)
[2019-05-02] MEDS: oxyCODONE TAB* 5 MG TAB PO PRN ×2 (09:26→14:22)
[2019-05-02] MEDS: LAMOTRIGINE 200 MG PO SCH (09:26)
[2019-05-02] MEDS: Gabapentin CAP(*) 400 MG PO SCH ×3 (09:27→20:15)
[2019-05-02] MEDS: Vitamin THERAPEUTIC TAB PO SCH (09:27)
[2019-05-02] MEDS: Citalopram TAB* 40 MG PO SCH (09:27)
[2019-05-02] MEDS: Docusate CAP* 100 MG PO SCH ×2 (09:27→20:18)
[2019-05-02] MEDS: Propranolol TAB* 20 MG PO SCH ×3 (09:27→20:17)
[2019-05-02] MEDS: Pantoprazole TAB * 40 MG TAB PO SCH (09:27)
[2019-05-02] MEDS: Magnesium Hydroxide LIQ* 30 ML UDC PO SCH ×2 (09:28→20:18)
--- NOTE | 2019-05-02 10:00 | PN ---
Subjective Date of Service: 05/02/19 Interval History: Pt feels well today, L leg is painful with ambulation Objective Active Medications: Acetaminophen (Tylenol Tab*) 975 mg PO Q8H [facility] Last Admin: 05/02/19 06:15 Dose: Not Given Aripiprazole (Abilify Tab*) 10 mg PO BEDTIME [facility] Last Admin: 05/01/19 21:27 Dose: 10 mg Atorvastatin Calcium (Lipitor*) 40 mg PO BEDTIME [facility] Last Admin: 05/01/19 21:27 Dose: 40 mg Bisacodyl (Dulcolax Supp*) 10 mg [place] DAILY PRN PRN Reason: CONSTIPATION Citalopram Hydrobromide (Celexa Tab*) 40 mg PO QAM [facility] Last Admin: 05/02/19 09:27 Dose: 40 mg Cyclobenzaprine HCl (Flexeril Tab*) 10 mg PO Q6H PRN PRN Reason: SPASMS Dextrose (Dextrose 50% Vial 50 Ml*) 25 ml IV PUSH .FOR FS < 60 - SS PRN PRN Reason: FS < 60 Diphenhydramine HCl (Benadryl Iv*) 25 mg IV Q6H PRN PRN Reason: PRURITIS Diphenhydramine HCl (Benadryl Po*) 25 mg PO Q6H PRN PRN Reason: PRURITIS Docusate Sodium (Colace Cap*) 100 mg PO BID [facility] Last Admin: 05/02/19 09:27 Dose: 100 mg Enoxaparin Sodium (Lovenox(*)) 40 mg SUBCUT Q24H [facility] Last Admin: 05/02/19 09:26 Dose: 40 mg Gabapentin (Neurontin Cap(*)) 400 mg PO TID [facility] Last Admin: 05/02/19 09:27 Dose: 400 mg Lactated Ringer's (Lactated Ringers 1000 Ml Bag*) 1,000 mls @ 100 mls/hr IV PER RATE [facility] Last Admin: 05/01/19 23:40 Dose: 100 mls/hr Insulin Human Lispro (Humalog*) 0 units SUBCUT ACHS [facility]; Protocol Last Admin: 05/02/19 09:12 Dose: Not Given Lactulose (Lactulose*) 30 ml PO BID PRN PRN Reason: CONSTIPATION Lamotrigine (Lamictal Xr (Nf)) 200 mg PO QAM [facility] Last Admin: 05/02/19 09:26 Dose: 200 mg Magnesium Hydroxide (Milk Of Magnesia Liq*) 30 ml PO BID [facility] Last Admin: 05/02/19 09:28 Dose: 30 ml Magnesium Hydroxide (Milk Of Magnesia Liq*) 30 ml PO Q6H PRN PRN Reason: CONSTIPATION Melatonin (Melatonin) 3 mg PO BEDTIME [facility] Last Admin: 05/01/19 21:27 Dose: 3 mg Morphine Sulfate (Morphine Inj (Syringe))*) 2 mg IV Q4H PRN PRN Reason: Pain - Unrelieved Multivitamins (Theragran Tab*) 1 tab PO DAILY [facility] Last Admin: 05/02/19 09:27 Dose: 1 tab Ondansetron HCl (Zofran Inj*) 4 mg IV Q6H PRN PRN Reason: NAUSEA Ondansetron HCl (Zofran Odt Tab*) 4 mg PO Q6H PRN PRN Reason: NAUSEA Oxycodone HCl (Roxycodone Tab*) 10 mg PO Q4H PRN PRN Reason: Pain - Breakthrough Last Admin: 05/02/19 09:26 Dose: 10 mg Oxycodone/Acetaminophen (Percocet 5/325 Tab*) 2 tab PO Q4H PRN PRN Reason: PAIN - SEVERE Last Admin: 05/02/19 06:06 Dose: 2 tab Oxycodone/Acetaminophen (Percocet 5/325 Tab*) 1 tab PO Q4H PRN PRN Reason: PAIN - MODERATE Pantoprazole Sodium (Protonix Tab*) 40 mg PO QAM [facility] Last Admin: 05/02/19 09:27 Dose: 40 mg Primidone (Mysoline Tab(*)) 250 mg PO BEDTIME [facility] Last Admin: 05/01/19 21:28 Dose: 250 mg Primidone (Mysoline Tab(*)) 200 mg PO BEDTIME [facility] Last Admin: 05/01/19 21:27 Dose: 200 mg Propranolol HCl (Inderal Tab*) 20 mg PO TID [facility] Last Admin: 05/02/19 09:27 Dose: 20 mg Vital Signs - 8 hr 05/02/19 05/02/19 05/02/19 02:17 02:58 06:06 Temperature 98.4 F Pulse Rate 74 Respiratory 16 16 18 Rate Blood Pressure 104/53 (mmHg) O2 Sat by Pulse 93 Oximetry 05/02/19 05/02/19 05/02/19 07:11 08:00 09:26 Temperature 99.4 F Pulse Rate 70 Respiratory 16 16 16 Rate Blood Pressure 126/51 (mmHg) O2 Sat by Pulse 90 Oximetry 05/02/19 09:27 Temperature Pulse Rate Respiratory 16 Rate Blood Pressure (mmHg) O2 Sat by Pulse Oximetry Oxygen Devices in Use Now: None Appearance: 59 yo F in nAD, aAOx3 Eyes: No Scleral Icterus, PERRLA Ears/Nose/Mouth/Throat: NL Teeth, Lips, Gums, Mucous Membranes Moist Neck: NL Appearance and Movements; NL JVP, Trachea Midline Respiratory: Symmetrical Chest Expansion and Respiratory Effort, Clear to Auscultation Cardiovascular: NL Sounds; No Murmurs; No JVD, RRR Abdominal: NL Sounds; No Tenderness; No Distention Lymphatic: No Cervical Adenopathy Extremities: No Clubbing, Cyanosis, - - mild left ankle edema, left knee in post op dressings-not removed Neurological: Alert and Oriented x 3, NL Muscle Strength and Tone Result Diagrams: 05/02/19 07:03 05/02/19 07:03 Assess/Plan/Problems-Billing Assessment: 59 yo F with h/o HTN, benign tremor, DM2 s/p elective L knee replacement - Patient Problems (1) Knee joint replacement status Comment: - Per ortho team (2) Benign essential tremor Comment: - Cont primidone and propranolol (3) DM2 (diabetes mellitus, type 2) Comment: - Currently on SS - May resume PO medications on discharge (4) HTN (hypertension) Comment: - SBPs in 140 to 150s. - Resume home medication of Lisinopril at discharge - Cont propranolol (5) DVT prophylaxis Comment: - Lovenox per ortho, cannot use Eliquis, or Xarelto due to interaction with Primidone
--- NOTE | 2019-05-02 10:02 | PN ---
Subjective Date of Service: 05/02/19 Objective Active Medications: Acetaminophen (Tylenol Tab*) 975 mg PO Q8H [facility] Last Admin: 05/02/19 06:15 Dose: Not Given Aripiprazole (Abilify Tab*) 10 mg PO BEDTIME [facility] Last Admin: 05/01/19 21:27 Dose: 10 mg Atorvastatin Calcium (Lipitor*) 40 mg PO BEDTIME [facility] Last Admin: 05/01/19 21:27 Dose: 40 mg Bisacodyl (Dulcolax Supp*) 10 mg [place] DAILY PRN PRN Reason: CONSTIPATION Citalopram Hydrobromide (Celexa Tab*) 40 mg PO QAM [facility] Last Admin: 05/02/19 09:27 Dose: 40 mg Cyclobenzaprine HCl (Flexeril Tab*) 10 mg PO Q6H PRN PRN Reason: SPASMS Dextrose (Dextrose 50% Vial 50 Ml*) 25 ml IV PUSH .FOR FS < 60 - SS PRN PRN Reason: FS < 60 Diphenhydramine HCl (Benadryl Iv*) 25 mg IV Q6H PRN PRN Reason: PRURITIS Diphenhydramine HCl (Benadryl Po*) 25 mg PO Q6H PRN PRN Reason: PRURITIS Docusate Sodium (Colace Cap*) 100 mg PO BID [facility] Last Admin: 05/02/19 09:27 Dose: 100 mg Enoxaparin Sodium (Lovenox(*)) 40 mg SUBCUT Q24H [facility] Last Admin: 05/02/19 09:26 Dose: 40 mg Gabapentin (Neurontin Cap(*)) 400 mg PO TID [facility] Last Admin: 05/02/19 09:27 Dose: 400 mg Lactated Ringer's (Lactated Ringers 1000 Ml Bag*) 1,000 mls @ 100 mls/hr IV PER RATE [facility] Last Admin: 05/01/19 23:40 Dose: 100 mls/hr Insulin Human Lispro (Humalog*) [address] [facility]; Protocol Last Admin: 05/02/19 09:12 Dose: Not Given Lactulose (Lactulose*) 30 ml PO BID PRN PRN Reason: CONSTIPATION Lamotrigine (Lamictal Xr (Nf)) 200 mg PO QAM [facility] Last Admin: 05/02/19 09:26 Dose: 200 mg Magnesium Hydroxide (Milk Of Magnesia Liq*) 30 ml PO BID [facility] Last Admin: 05/02/19 09:28 Dose: 30 ml Magnesium Hydroxide (Milk Of Magnesia Liq*) 30 ml PO Q6H PRN PRN Reason: CONSTIPATION Melatonin (Melatonin) 3 mg PO BEDTIME [facility] Last Admin: 05/01/19 21:27 Dose: 3 mg Morphine Sulfate (Morphine Inj (Syringe))*) 2 mg IV Q4H PRN PRN Reason: Pain - Unrelieved Multivitamins (Theragran Tab*) 1 tab PO DAILY [facility] Last Admin: 05/02/19 09:27 Dose: 1 tab Ondansetron HCl (Zofran Inj*) 4 mg IV Q6H PRN PRN Reason: NAUSEA Ondansetron HCl (Zofran Odt Tab*) 4 mg PO Q6H PRN PRN Reason: NAUSEA Oxycodone HCl (Roxycodone Tab*) 10 mg PO Q4H PRN PRN Reason: Pain - Breakthrough Last Admin: 05/02/19 09:26 Dose: 10 mg Oxycodone/Acetaminophen (Percocet 5/325 Tab*) 2 tab PO Q4H PRN PRN Reason: PAIN - SEVERE Last Admin: 05/02/19 06:06 Dose: 2 tab Oxycodone/Acetaminophen (Percocet 5/325 Tab*) 1 tab PO Q4H PRN PRN Reason: PAIN - MODERATE Pantoprazole Sodium (Protonix Tab*) 40 mg PO QAM [facility] Last Admin: 05/02/19 09:27 Dose: 40 mg Primidone (Mysoline Tab(*)) 250 mg PO BEDTIME [facility] Last Admin: 05/01/19 21:28 Dose: 250 mg Primidone (Mysoline Tab(*)) 200 mg PO BEDTIME [facility] Last Admin: 05/01/19 21:27 Dose: 200 mg Propranolol HCl (Inderal Tab*) 20 mg PO TID [facility] Last Admin: 05/02/19 09:27 Dose: 20 mg Vital Signs - 8 hr 05/02/19 05/02/19 05/02/19 02:17 02:58 06:06 Temperature 98.4 F Pulse Rate 74 Respiratory 16 16 18 Rate Blood Pressure 104/53 (mmHg) O2 Sat by Pulse 93 Oximetry 05/02/19 05/02/19 05/02/19 07:11 08:00 09:26 Temperature 99.4 F Pulse Rate 70 Respiratory 16 16 16 Rate Blood Pressure 126/51 (mmHg) O2 Sat by Pulse 90 Oximetry 05/02/19 09:27 Temperature Pulse Rate Respiratory 16 Rate Blood Pressure (mmHg) O2 Sat by Pulse Oximetry Oxygen Devices in Use Now: None Result Diagrams: 05/02/19 07:03 05/02/19 07:03 Assess/Plan/Problems-Billing Assessment:
--- NOTE | 2019-05-02 10:44 | PN ---
Progress Note - Progress Note Date of Service: 05/02/19 SOAP: Subjective: Pt is doing well. Reports some pain that is controlled with po pain meds. Doing well with PT. Denies CP/SOB, calf pain or F/C Objective: PE- 59 y/o WDWN F NAD LLE- dressing c/d/i, calf soft NT, +DF/PF ankle, +2 DP pulse, SILT distally Vital Signs Temp Pulse Resp BP Pulse Ox 99.4 F 70 16 126/51 90 05/02/19 08:00 05/02/19 08:00 05/02/19 09:27 05/02/19 08:00 05/02/19 08:00 Laboratory Results - last 24 hr 05/01/19 05/01/19 05/01/19 12:02 15:49 20:51 Hgb Hct Plt Count MPV Sodium Potassium Chloride Carbon Dioxide Anion Gap BUN Creatinine Est GFR ( Amer) Est GFR (Non-Af Amer) BUN/Creatinine Ratio Glucose POC Glucose (mg/dL) 137 H 60 L 179 H Calcium 05/02/19 05/02/19 07:03 07:03 Hgb 10.5 L Hct 31 L Plt Count 263 MPV 8.4 Sodium 138 Potassium 4.1 Chloride 104 Carbon Dioxide 29 Anion Gap 5 BUN 14 Creatinine 0.77 Est GFR ( Amer) 92.2 Est GFR (Non-Af Amer) 76.2 BUN/Creatinine Ratio 18.2 Glucose 119 H POC Glucose (mg/dL) Calcium 8.5 L Assessment: POD 1 S/P Left total knee arthroplasty Plan: WBAT-PT/OT Cont pain control Lovenox for DVT prophylaxis, unable to use eliquis or xarelto d/t interaction with primidone DC to home with outpt PT today vs tomorrow depending on how afternoon PT session goes
[2019-05-02] MEDS: Melatonin 3 MG TAB PO SCH (20:15)
[2019-05-02] MEDS: Primidone TAB(*) 250 MG PO SCH (20:17)
[2019-05-02] MEDS: Atorvastatin* 40 MG TAB PO SCH (20:17)
[2019-05-02] MEDS: ARIPiprazole TAB* 5 MG PO SCH (20:18)
[2019-05-02] MEDS: Primidone TAB(*) 50 MG PO SCH (20:18)
[2019-05-03] MEDS: Acetaminophen TAB* 325 MG PO SCH (04:50)
[2019-05-03 06:24] LABS: Hematocrit 29 % (35-47); Hemoglobin 10.2 g/dL (12.0-16.0); Mean Platelet Volume 8.1 fL (7.4-10.4); Platelet Count 245 10^3/uL (150-450)
[2019-05-03 07:52] VITALS: BP 143/60
[2019-05-03] MEDS: Magnesium Hydroxide LIQ* 30 ML UDC PO SCH (08:40)
[2019-05-03] MEDS: Gabapentin CAP(*) 400 MG PO SCH (08:43)
[2019-05-03] MEDS: Docusate CAP* 100 MG PO SCH (08:43)
[2019-05-03] MEDS: Propranolol TAB* 20 MG PO SCH (08:43)
[2019-05-03] MEDS: Citalopram TAB* 40 MG PO SCH (08:43)
[2019-05-03] MEDS: Vitamin THERAPEUTIC TAB PO SCH (08:43)
[2019-05-03] MEDS: Enoxaparin(*) 40 MG/0.4 ML SYR SUBCUT SCH (08:43)
[2019-05-03] MEDS: Insulin LISPRO* 1 UNITS UNIT SUBCUT SCH (08:43)
[2019-05-03] MEDS: LAMOTRIGINE 200 MG PO SCH (08:44)
[2019-05-03] MEDS: Pantoprazole TAB * 40 MG TAB PO SCH (08:44)
--- NOTE | 2019-05-03 10:35 | PN ---
Progress Note - Progress Note Date of Service: 05/03/19 SOAP: Subjective: Pt seen sitting in chair. Minimal complaint of pain. No complaint today otherwise. Denies CP, SOB, F/C. Vital Signs: Temp Pulse Resp BP Pulse Ox 99.5 F 81 18 143/60 95 05/03/19 07:51 05/03/19 07:51 05/03/19 08:43 05/03/19 07:51 05/03/19 07:51 Laboratory Last Values Hgb 10.2 g/dL (12.0-16.0) L 05/03/19 06:09 Hct 29 % (35-47) L 05/03/19 06:09 Plt Count 245 10^3/uL (150-450) 05/03/19 06:09 MPV 8.1 fL (7.4-10.4) 05/03/19 06:09 Sodium 138 mmol/L (135-145) 05/02/19 07:03 Potassium 4.1 mmol/L (3.5-5.0) 05/02/19 07:03 Chloride 104 mmol/L (101-111) 05/02/19 07:03 Carbon Dioxide 29 mmol/L (22-32) 05/02/19 07:03 Anion Gap 5 mmol/L (2-11) 05/02/19 07:03 BUN 14 mg/dL (6-24) 05/02/19 07:03 Creatinine 0.77 mg/dL (0.51-0.95) 05/02/19 07:03 Est GFR ( Amer) 92.2 (>60) 05/02/19 07:03 Est GFR (Non-Af Amer) 76.2 (>60) 05/02/19 07:03 BUN/Creatinine Ratio 18.2 (8-20) 05/02/19 07:03 Glucose 119 mg/dL (70-100) H 05/02/19 07:03 POC Glucose (mg/dL) 158 mg/dL (70-100) H 05/03/19 07:55 Calcium 8.5 mg/dL (8.6-10.3) L 05/02/19 07:03 Objective: A&O x3, NAD Dressing Changed, Incision C/D/I, Calves soft and nontender, Mild edema, NVI distally Assessment: 59 yo female s/p Left TKA POD #2 Plan: OOB, PT/OT WBAT Pain control DVT prophylaxis - Lovenox, unable to take eliquis or xeralto d/t interaction with primidone D/C home today
--- NOTE | 2019-05-03 10:39 | DS ---
Orthopedic Discharge Summary - Discharge Summary Date of Admission:05/01/19 Date of Discharge: 05/03/19 Date of Surgery: 05/01/19 Attending Orthopedic Provider: Dr. Rosy Spaulding Pre-operative Diagnosis: Left knee osteoarthritis Operative Procedure: Left Total Knee Replacement Disposition of Patient: Home Condition of Patient: Stable History: SHANTAL LALA is a 59 year old F with years of increasingly severe Left pain. Patient has failed conservative management and has elected to undergo a Left total knee replacement Hospital Course: SHANTAL was admitted to [facility] on 05/01/19. Patient underwent a Left Total Knee Repalcement without complication followed by a brief recovery in PACU and transfer to the Short Stay Surgical Unit in stable condition. Our hospitalist service, physical therapy and occupational therapy also participated in this patients care. Post-op day 1: patient was alert and in no acute distress. Dressing was clean, dry and intact. Operative extremity dorsiflexion and plantarflexion intact, sensation intact to light touch distally, DP2+. Post-op day two: dressing was changed, incision was clean , dry and intact. Patient was deemed to be medically and orthopedically stable for discharge. Physical therapy goals were met. Home Medications Medication Instructions Recorded Confirmed Type Atorvastatin* [Lipitor 40 MG*] 40 mg PO BEDTIME 07/19/15 05/01/19 History Citalopram TAB* [Celexa TAB*] 40 mg PO QAM 07/19/15 05/01/19 History Gabapentin CAP(*) [Neurontin 300 400 mg PO TID 07/19/15 05/01/19 History CAP(*)] Multivitamins/Minerals TAB* 1 tab PO QAM 07/19/15 05/01/19 History [Theragran/minerals TAB*] Omeprazole CAP (NF) [Prilosec CAP* 20 mg PO QAM 07/19/15 05/01/19 History 20 MG] Propranolol TAB* [Inderal TAB*] 20 mg PO TID 07/19/15 05/01/19 History metFORMIN* [Glucophage 1000 MG TAB 1,000 mg PO BID 07/19/15 05/01/19 History *] ARIPiprazole [Abilify] 10 mg PO BEDTIME 09/16/18 05/01/19 History Lisinopril [Lisinopril 2.5 MG-] 2.5 mg PO QAM 09/16/18 05/01/19 History Melatonin 5 mg PO BEDTIME 09/16/18 05/01/19 History Primidone 200 mg PO BEDTIME 09/16/18 05/01/19 History Primidone [Mysoline] 250 mg PO BEDTIME 09/16/18 05/01/19 History lamoTRIgine [Lamotrigine ER] 200 mg PO QAM 09/16/18 05/01/19 History Acetaminophen [Acetaminophen Extra 500 - 1,000 mg PO QID PRN 01/15/19 05/01/19 History Strength] Cholecalciferol (Vitamin D3) 1,000 unit PO BID 04/23/19 05/01/19 History [Vitamin D3] Enoxaparin(*) [Lovenox(*)] 40 mg SUBCUT Q24H syringe 05/03/19 Rx oxyCODONE/Acetamin 5/325 MG* 1 tab PO Q4H PRN tab 05/03/19 Rx [Percocet 5/325 TAB*] oxyCODONE/Acetamin 5/325 MG* 2 tab PO Q4H PRN tab 05/03/19 Rx [Percocet 5/325 TAB*] Discharge Instructions following Orthopedic Surgery: Activity: * Weight Bearing as tolerated * Continue physical therapy and occupational therapy exercises as shown Wound care: * OK to shower on post-op day 3, no bathing, swimming, or submerging wound. * Use gentle soap, pat dry. Cover with gauze, COREY wrap or tape. Call Orthopedic office for: * Increased drainage * Redness * Increased pain * Fever Go to ER with shortness of breath or chest pain. Diet: * Regular diet * Increase fluids and fiber to prevent constipation. * Continue to use stool softeners, call office if no bowel motion within 48 hours. Medications See Home Medication List in your packet for medications that you should take after discharge. DVT Prophylaxis: Lovenox Dosin mg twice a day DO NOT take naproxen while on lovenox Pain Control: Percocet Dosin/325 mg 1-2 tabs by mouth every 4-6 hours as needed for pain. Maximum of 10 tabs per day. Please note that Percocet contains Tylenol (acetaminophen). Maximum daily dose of Tylenol is 4000 mg from all sources. Antibiotics are required prior to any dental work. FOLLOW UP: Follow up with Dr. Spaulding Within 10-14 days, call for appointment Please call our office with any questions or concerns ([phone])
[2019-05-03] MEDS ORDERED: Bisacodyl SUPP* 10 MG SUPP PR PRN (11:42)
== END 2019-05-03 11:15 | disposition home or self-care (01) | DRG 302 ==
LOC: AA 06:11 → SSU 11:42
PROVIDERS: ADMIT Orthopaedic Surgery Adult Reconstructive Orthopaedic Surgery; ATTEND Orthopaedic Surgery Adult Reconstructive Orthopaedic Surgery
PROC: 0SRD069 Replacement of Left Knee Joint with Oxidized Zirconium on Polyethylene Synthetic Substitute, Cemented, Open Approach (ICD-10-PCS; principal; 2019-05-01 09:00)
DX: M17.12 Unilateral primary osteoarthritis, left knee (principal); E89.6 Postprocedural adrenocortical (-medullary) hypofunction; E87.2 Acidosis; I10 Essential (primary) hypertension; F41.9 Anxiety disorder, unspecified; F32.9 Major depressive disorder, single episode, unspecified; E66.01 Morbid (severe) obesity due to excess calories; G25.0 Essential tremor; M25.762 Osteophyte, left knee; M25.462 Effusion, left knee; F43.10 Post-traumatic stress disorder, unspecified; E78.00 Pure hypercholesterolemia, unspecified; I44.7 Left bundle-branch block, unspecified; E11.42 Type 2 diabetes mellitus with diabetic polyneuropathy; K57.90 Diverticulosis of intestine, part unspecified, without perforation or abscess without bleeding; E05.90 Thyrotoxicosis, unspecified without thyrotoxic crisis or storm; E04.1 Nontoxic single thyroid nodule; K21.9 Gastro-esophageal reflux disease without esophagitis; Z82.49 Family history of ischemic heart disease and other diseases of the circulatory system; Z68.37 Body mass index [BMI] 37.0-37.9, adult; Z79.84 Long term (current) use of oral hypoglycemic drugs; Z79.01 Long term (current) use of anticoagulants; Z83.3 Family history of diabetes mellitus
CPT/HCPCS: 36415; 80048; 85014; 85018; 85049; 88305; 88311; A9270-GY; C1776; J0690; J1100; J1650; J1885; J2250; J2405; J2704; J2795; J3010

== ENCOUNTER 2019-05-03 20:53 | Inpatient (IN) | payer OTHER ==
--- NOTE | 2019-05-03 21:20 | ED ---
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 She notes that she was discharged from [facility] earlier today s/p left knee replacement on 05/01/2019. After arriving home she went to use the toilet and began to feel generalized weakness and had a fall, hitting her head on the toilet in the process. After this fall she was moved to the living room where she fell again after trying to sit down in a chair. She notes that before she went home she was at physical therapy and was feeling fine there. She rates her current pain severity a 0/10. She was put on Percocet while in [facility] but takes oxycodone at home with her last dose of 2ml taken at 1845. No aggravating or alleviating factors noted. She also reports some warmth and pallor after the fall but denies any numbness/tingling, CP, SOB, N/V/D, or LOC. Home Medications Medication Instructions Recorded Confirmed Type Atorvastatin* [Lipitor 40 MG*] 40 mg PO BEDTIME 07/19/15 05/01/19 History Citalopram TAB* [Celexa TAB*] 40 mg PO QAM 07/19/15 05/01/19 History Gabapentin CAP(*) [Neurontin 300 400 mg PO TID 07/19/15 05/01/19 History CAP(*)] Multivitamins/Minerals TAB* 1 tab PO QAM 07/19/15 05/01/19 History [Theragran/minerals TAB*] Omeprazole CAP (NF) [Prilosec CAP* 20 mg PO QAM 07/19/15 05/01/19 History 20 MG] Propranolol TAB* [Inderal TAB*] 20 mg PO TID 07/19/15 05/01/19 History metFORMIN* [Glucophage 1000 MG TAB 1,000 mg PO BID 07/19/15 05/01/19 History *] ARIPiprazole [Abilify] 10 mg PO BEDTIME 09/16/18 05/01/19 History Lisinopril [Lisinopril 2.5 MG-] 2.5 mg PO QAM 09/16/18 05/01/19 History Melatonin 5 mg PO BEDTIME 09/16/18 05/01/19 History Primidone [Mysoline] 250 mg PO BEDTIME 09/16/18 05/01/19 History lamoTRIgine [Lamotrigine ER] 200 mg PO QAM 09/16/18 05/01/19 History Acetaminophen [Acetaminophen Extra 500 - 1,000 mg PO QID PRN 01/15/19 05/01/19 History Strength] Cholecalciferol (Vitamin D3) 1,000 unit PO BID 04/23/19 05/01/19 History [Vitamin D3] Enoxaparin(*) [Lovenox(*)] 40 mg SUBCUT Q24H syringe 05/03/19 Rx oxyCODONE/Acetamin 5/325 MG* 1 tab PO Q4H PRN tab 05/03/19 Rx [Percocet 5/325 TAB*] oxyCODONE/Acetamin 5/325 MG* 2 tab PO Q4H PRN tab 05/03/19 Rx [Percocet 5/325 TAB*] - History of Current Complaint Chief Complaint: EDWeakness Stated Complaint: WEAKNESS PER EMS Time Seen by Provider: 05/03/19 20:56 Hx Obtained From: Patient Hx Last Menstrual Period: 08/11 Mechanism of Injury: Fall Loss of Consciousness: no loss of consciousness Onset/Duration: Started Hours Ago, Resolved Onset of Pain: Post Accident Onset Severity: Mild Current Severity: None Pain Intensity: 0 Pain Scale Used: 0-10 Numeric Aggravating Factor(s): Nothing Alleviating Factor(s): Nothing Associated Signs & Symptoms: Positive: Other: - pos - weakness, warmth, pallor, neg - numbness/tingling, diarrhea. Negative: SOB, Chest Pain, Nausea/Vomiting, Loss of Consciousness - Additional Pertinent History Primary Care Physician: [id number] - Allergy/Home Medications Allergies/Adverse Reactions: Allergies Allergy/AdvReac Type Severity Reaction Status Date / Time Sulfa (Sulfonamide Allergy Severe diifculty Verified 05/03/19 21:14 Antibiotics) breathing, hives PMH/Surg Hx/FS Hx/Imm Hx Endocrine/Hematology History: Reports: Hx Diabetes - DM, Hx Thyroid Disease - right sided nodule, Hx Anemia Denies: Hx Bone Marrow Disease, Hx Sickle Cell Disease Cardiovascular History: Reports: Hx Hypertension Denies: Hx Pacemaker/ICD, Other Cardiovascular Problems/Disorders Respiratory History: Denies: Hx Asthma, Hx Chronic Obstructive Pulmonary Disease (COPD), Other Respiratory Problems/Disorders GI History: Reports: Hx Irritable Bowel - 2018, Other GI Disorders - on omeprazole to protect stomach from medication History: Reports: Hx Kidney Stones - small Denies: Hx Dialysis, Hx Renal Disease Musculoskeletal History: Reports: Hx Arthritis Sensory History: Reports: Hx Contacts or Glasses - glasses Denies: Hx Hearing Aid Opthamlomology History: Reports: Hx Contacts or Glasses - glasses Neurological History: Reports: Hx Nerve Disease - essential tremors, Other Neuro Impairments/Disorders - essential tremors- all over Denies: Hx Dementia, Hx Seizures Psychiatric History: Reports: Hx Anxiety - on meds, Hx Depression - on meds, Hx Bipolar Disorder Denies: Hx Panic Disorder - Cancer History Hx Chemotherapy: No - Surgical History Surgery Procedure, Year, and Place: R adrenal gland removed 10 yrs ago; D&C AT AGE 21; TONSILECTOMY AT 5YRS; Hx Anesthesia Reactions: No Infectious Disease History: No Infectious Disease History: Denies: Hx Clostridium Difficile, Hx Hepatitis, Hx Human Immunodeficiency Virus (HIV), Hx of Known/Suspected MRSA, Hx Shingles, Hx Tuberculosis, Traveled Outside the [place] in Last 30 Days - Social History Alcohol Use: None Substance Use Type: Reports: None Smoking Status (MU): Never Smoked Tobacco Review of Systems Constitutional: Other - pos - pallor, warmth Negative: Chest Pain Negative: Shortness Of Breath Negative: Vomiting, Diarrhea, Nausea Neurological: Negative - tingling Positive: Weakness. Negative: Numbness, Syncope All Other Systems Reviewed And Are Negative: Yes Physical Exam - Summary Physical Exam Summary: General: Well-developed, Well-nourished, Obese female. No acute distress. HEENT: Normocephalic, Atraumatic. Eyes: Conjuctiva normal, PERRL. Ears: TMs within normal limits. Nares: (-) discharge, (-) erythema. Oropharynx: Clear, mucous membranes moist, (-) exudates. Neck: Soft, FROM, (-) lymphadenopathy, (-) thyromegaly, (-) JVD. Cardiovascular: Normal sinus rhythm, (-) murmur. Lungs: Clear to auscultation bilaterally (-) wheezes, (-) rales, (-) rhonchi. Abdomen: Soft, non-tender, non-distended, (-) organomegaly, normal bowel sounds. Back: (-) CVA tenderness Extremities: No edema. Skin: Warm, dry, (-) rash. Neuro: Alert and oriented x3, no focal deficits. Psychiatric: Mood normal, affect normal. Triage Information Reviewed: Yes Vital Signs On Initial Exam: Initial Vitals Temp Pulse Resp BP Pulse Ox 100.3 F 87 16 132/78 91 05/03/19 21:05 05/03/19 21:05 05/03/19 21:05 05/03/19 21:05 05/03/19 21:05 Vital Signs Reviewed: Yes Diagnostics - Vital Signs Vital Signs Temp Pulse Resp BP Pulse Ox 05/03/19 21:05 100.3 F 87 16 132/78 91 - Laboratory Result Diagrams: 05/03/19 22:46 05/03/19 22:46 Lab Statement: Any lab studies that have been ordered have been reviewed, and results considered in the medical decision making process. - Radiology CXR Radiology Interpretation Completed By: ED Physician Summary of Radiographic Findings: No acute abnormalities, pending official report. - EKG 2236 Cardiac Rate: NL - 85 bpm EKG Rhythm: Sinus Rhythm Summary of EKG Findings: NSR @ 85 bpm. LBBB. Negative STEMI. No acute changes. 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 She also reports some warmth and pallor after the fall but denies any numbness/tingling, CP, SOB, N/V/D, or LOC. Test results normal except for RBC 2.96, Hgb 9.4, Hct 27, MCH 32, Absolute Neuts 7.8, Absolute monos 1.0, Glucose 238, Calcium 8.1, Troponin I 0.15 @ 2246 and 0.12 @ 0115, CRP 253.55, Total protein 5.6, Albumin 3.1, BNP 271, and TSH 0.24. In the ED course the pt was given 1000 mls fluids. An EKG reveals NSR @ 85 bpm. LBBB. Negative STEMI. No acute changes. A CXR reveals: no acute abnormalities, pending official report. Final dx are generalized weakness and elevated troponin. Hospitalist was consulted @ 9709 and will admit the pt to [facility] - Diagnoses Provider Diagnoses: Generalized weakness, Elevated troponin - Physician Notifications Discussed Care Of Patient With: Eliceo Weber - Hospitalist will admit pt to [facility] Time Discussed With Above Provider: 23:52 Instructed by Provider To: Admit As Inpatient Discharge ED - Sign-Out/Discharge Documenting (check all that apply): Patient Departure - admit All imaging exams completed and their final reports reviewed: Yes Patient Received Moderate/Deep Sedation with Procedure: No - Discharge Plan Disposition: ADMITTED TO [facility] - Attestation Statements Document Initiated by Scribe: Yes Documenting Scribe: Danyel Wheatley Provider For Whom Scribe is Documenting (Include Credential): Krista Dumont MD Scribe Attestation: IDanyel, scribed for Krista Dumont MD on 05/04/19 at 0417. Status of Scribe Document: Ready
[2019-05-03] MEDS ORDERED: NS 0.9% 1000 ML** 1,000 ML IV ONE (22:26)
[2019-05-03 22:54] LABS: ABS Eosinophils 0.1 10^3/ul (0-0.6); ABS Lymphocytes 1.2 10^3/ul (1.0-4.8); ABS Neutrophils 7.8 10^3/ul (1.5-7.7); Eosinophil % 0.7 %; Hematocrit 27 % (35-47); Hemoglobin 9.4 g/dL (12.0-16.0); Lymphocyte % 11.7 %; Mean Corpuscular HGB Conc 34 g/dL (31-36); Mean Corpuscular Hemoglobin 32 pg (27-31); Mean Corpuscular Volume 92 fL (80-97); Mean Platelet Volume 7.9 fL (7.4-10.4); Platelet Count 241 10^3/uL (150-450); Red Blood Count 2.96 10^6 /uL (3.70-4.87); Red Cell Distribution Width 14 % (10-15)
[2019-05-03 23:13] LABS: ALT 25 U/L (7-52); AST 34 U/L (13-39); Albumin 3.1 g/dL (3.2-5.2); Albumin/Globulin Ratio 1.2 (1-3); Alkaline Phosphatase 90 U/L (34-104); Anion Gap 5 mmol/L (2-11); Blood Urea Nitrogen 12 mg/dL (6-24); CO2 Carbon Dioxide 28 mmol/L (22-32); Calcium 8.1 mg/dL (8.6-10.3); Chloride 102 mmol/L (101-111); EGFR African American 88.2 (>60); EGFR Non-African American 72.9 (>60); Globulin 2.5 g/dL (2-4); Glucose 238 mg/dL (70-100); Magnesium 2.2 mg/dL (1.9-2.7); Potassium 3.9 mmol/L (3.5-5.0); Sodium 135 mmol/L (135-145); Total Protein 5.6 g/dL (6.4-8.9)
[2019-05-03 23:19] LABS: Troponin I 0.15 ng/mL (<0.04)
[2019-05-03 23:36] LABS: TSH (Thyroid Stimulating Horm) 0.24 mcIU/mL (0.34-5.60)
[2019-05-04] MEDS ORDERED: Dextrose 50% VIAL 50 ml IV PUSH PRN (01:03)
[2019-05-04 01:28] LABS: C Reactive Protein 253.55 mg/L (<8.01)
[2019-05-04] MEDS ORDERED: Acetaminophen TAB* 325 MG PO PRN (01:34)
[2019-05-04 01:55] LABS: Troponin I 0.12 ng/mL (<0.04)
[2019-05-04] MEDS ORDERED: cefTRIAXone(*) 1 GM in NS 0.9% 50 ML* 50 ML IVPB SCH (02:00)
[2019-05-04] MEDS ORDERED: Enoxaparin(*) 40 MG/0.4 ML SYR SUBCUT SCH (02:00)
[2019-05-04] MEDS ORDERED: Melatonin 3 MG TAB PO SCH (03:00)
[2019-05-04 03:53] LABS: Urine Appearance Cloudy; Urine Bacteria Absent (Absent); Urine Bilirubin Negative (Negative); Urine Blood 2+ (Negative); Urine Color Yellow; Urine Glucose 1+(50 mg/dL) (Negative); Urine Ketones Negative (Negative); Urine Nitrite Negative (Negative); Urine Protein 2+(100 mg/dL) (Negative); Urine Red Blood Cell 3+(>10/hpf) (Absent); Urine Specific Gravity 1.018 (1.010-1.030); Urine Squamous Epithelial Cell Present (Absent); Urine Urobilinogen Negative (Negative); Urine White Blood Cell 1+(6-10/hpf) (Absent)
--- NOTE | 2019-05-04 04:47 | HP ---
HISTORY AND PHYSICAL: DATE OF ADMISSION: 05/04/19. PRIMARY CARE PROVIDER: Armida Quarles MD. ADMITTING PROVIDER: Kayode Adams MD. OUTPATIENT PAPER PROCESSING MACHINE HELPER: Dr. Emir Issa. ORTHOPEDIC SURGEON: Dr. Spaulding. CHIEF COMPLAINT: Generalized weakness resulting in two falls, knee pain. HISTORY OF PRESENT ILLNESS: Magalis Mckeon is a 59-year-old female with past medical history of non-insulin dependent diabetes mellitus, obesity, hypertension, hyperlipidemia, anxiety, resting tremors, PTSD, left bundle branch block. She recently was discharged the day prior to admission, on , after getting an elective left knee replacement with Dr. Spaulding. She states she initially had not been doing well with physical therapy until the morning of discharge, when she was able to ambulate without assistance, using a walker. When she got home, she initially was doing okay, but around 4 or 5 p.m. on the day of discharge she went to the bathroom and when she got up, while holding on to her walker, she felt her bilateral knee and legs buckle beneath her. She fell backwards, hitting the back of her head on the toilet and her legs against the walker. She was helped up by 3 people (brother, brother's girlfriend, and father) into the next room, but again her legs buckled and she was assisted down with their support. The three of them could not get her back up and they called an EMT friend and she was transported to the hospital for further evaluation. Initial workup included a temperature of 100.3 and heart rate 92, meeting 2 out of 4 SIRS criteria. She is without leukocytosis. She had an elevated troponin of 0.15. No lactic acidosis (1.4). There is no previous troponin in our system to compare to. The only other EKG was back in August 2018 when a left bundle branch block was present. She denies any chest pain or shortness of breath. She says she has never had an echocardiogram. She has had frequent urination over the last year and reportedly history of UTIs, including a recent course of antibiotics, she does not know the name of that. She denies any rashes. There is, what sounds like, a Katya infection underneath her breasts, treated with nystatin powder. She denies any headaches or vision changes. She denies any bleeding or hip pain. The pain in the left knee can get up to 10 out of 10, last Percocet was at 6:44 p.m. on the day of discharge. PAST MEDICAL HISTORY: Includes: 1. Non-insulin dependent diabetes mellitus. 2. Hypertension. 3. Hyperlipidemia. 4. Moderate obesity. 5. Osteoarthritis. 6. Anxiety. 7. Resting tremor. 8. PTSD. 9. Memory issues. 10. Left bundle branch block. 11. Status post adrenalectomy for a benign tumor. MEDICATIONS: Home medications include: 1. Percocet 1 to 2 tablets q.4 hours p.r.n. for moderate versus severe pain. 2. Abilify 10 mg p.o. at bedtime. 3. Lovenox 40 mg subcutaneous q.24 hours. 4. Celexa 40 mg p.o. q.a.m. 5. Vitamin D 1000 units p.o. daily. 6. Atorvastatin 40 mg p.o. at bedtime. 7. Tylenol 500 to 1000 mg p.o. 4 times a day p.r.n. 8. Omeprazole 20 mg p.o. q.a.m. 9. Multivitamin 1 tablet p.o. q.a.m. 10. Melatonin 5 mg p.o. at bedtime. 11. Lisinopril 2.5 mg p.o. q.a.m. 12. Neurontin 400 mg p.o. t.i.d. 13. Primidone 450 mg p.o. at bedtime. 14. Lamotrigine 200 mg p.o. q.a.m. 15. Metformin 1000 mg p.o. b.i.d. 16. Propranolol 20 mg p.o. t.i.d. ALLERGIES: Include SULFA (difficulty breathing and hives). FAMILY HISTORY: Brother had prostate cancer. Mother with mitral valve prolapse and due to complications of diabetes and heart disease. SOCIAL HISTORY: Patient is a never smoker. No alcohol or drug use. She is not currently working. She lives with her brother, Erik. When asked who her surrogate is, she says "I have not picked one yet," prior records seem to indicate it was her brother, Erik. She desires to be a full code. PHYSICAL EXAMINATION GENERAL APPEARANCE: In no acute distress, but slightly sleepy looking. VITAL SIGNS: On admission, temperature 100.3, heart rate 92, respiratory rate between 14 and 20, and blood pressure 132/78. HEENT: Normocephalic, atraumatic. Pupils are equal, round, and reactive to light. Extraocular motions are intact. No scleral icterus. LUNGS: Clear to auscultation bilaterally, without wheezing, rales or rhonchi. CARDIOVASCULAR: Regular rate and rhythm. No murmurs, rubs or gallops. ABDOMEN: Soft, nontender, nondistended. No rebound or guarding. No Horvath sign. EXTREMITIES: Warm, well perfused. 1+ pitting edema bilaterally. There is warmth in the bilateral knees. [place] look intact. No drainage. No gross fluctuance. Minimal erythema on the left knee. NEUROLOGIC: Cranial nerves II through XII are intact. Embossing Clerk strength intact. Alert and oriented x4. DIAGNOSTIC STUDIES/LAB DATA: White count 10.0, hemoglobin 9.4, hematocrit 27 , platelets 241. Sodium 135, potassium 3.9, carbon dioxide 28, chloride 102, BUN 12, creatinine 0.8. Glucose 238, magnesium 2.2, calcium 9.1, lactic acid 1.4. AST 34, ALT 25, total bilirubin 0.3, alk phos 90. Troponin 0.15. Albumin 3.1. TSH 0.24. Imaging: Chest x-ray, formal read pending. No clear infiltrates on my read, perhaps some increased vascular congestion. EKG demonstrated normal sinus rhythm, left bundle branch block. T-wave inversions in III, which are a little bit more pronounced than in August 2018, otherwise relatively unchanged. QTc of 496. Heart rate of 85. Normal axis. ASSESSMENT AND PLAN: Magalis Mckeon is a 59-year-old female with a past medical history of recent left total knee replacement, obesity, non-insulin dependent diabetes mellitus, hypertension, hyperlipidemia, PTSD, tremors, presenting with 2 falls, generalized weakness, and elevated troponin. She denies any chest pain or shortness of breath. She does have some bilateral warmth in both lower extremities and did meet 2 out of 4 SIRS criteria on admission with fever and elevated heart rate. Blood cultures were already obtained. Adding CRP. I am going to have a low threshold for adding ceftriaxone empirically after UA is obtained. Orthopedics will be contacted in the morning. Her vital signs have normalized without any intervention other than 1 L normal saline. The temperature self-corrected without any Tylenol or Percocet. I am also adding on a BNP given some slight swelling in bilateral legs and perhaps some mild vascular congestion on the chest x-ray. She is not hypoxic, nor complaining of shortness of breath. We will trend troponin q.3 hours. Consideration for an echocardiogram since she states she has never had one, depending on those results. For pain control, continue Percocet 1 to 2 tablets for mild-to- severe pain, otherwise Tylenol. Continue her gabapentin 400 mg p.o. t.i.d., citalopram 40 mg q.a.m., Abilify 10 mg p.o. at bedtime. For GERD, continue omeprazole 20 mg p.o. q.a.m. For her tremors, continue primidone 450 mg p.o. at bedtime and propranolol 20 mg p.o. t.i.d. She had already had a lipid panel just 2 weeks ago, LDL was 138, HDL was 64, Alc was 6.4, total cholesterol was 240. We will continue atorvastatin 40 mg daily. For DVT prophylaxis, continue her Lovenox 40 mg q.24 hours. Continue her lisinopril 2.5 mg. She can eat a heart-healthy and carbohydrate-consistent diet. She tells me that medical surrogate would be Erik, her brother. For her low TSH, we will get a total T3 and free T4. Put her on [id number] testing q.a.c. and h.s. with Lispro sliding scale, and hold her metformin. We will have her work with Physical Therapy. She is a full code. [id number]/[facility] #: [id number] [facility]
[2019-05-04] MEDS: ARIPiprazole TAB* 5 MG PO SCH ×2 (05:20→22:05)
[2019-05-04] MEDS: Atorvastatin* 40 MG TAB PO SCH ×2 (05:20→21:56)
[2019-05-04] MEDS: Primidone TAB(*) 250 MG PO SCH ×2 (05:21→22:12)
[2019-05-04] MEDS: Primidone TAB(*) 50 MG PO SCH ×2 (05:22→22:05)
[2019-05-04] MEDS: Enoxaparin(*) 40 MG/0.4 ML SYR SUBCUT SCH (05:33)
[2019-05-04] MEDS: cefTRIAXone(*) 1 GM in NS 0.9% 50 ML* 50 ML IVPB SCH (06:01)
[2019-05-04 06:30] LABS: ABS Eosinophils 0.2 10^3/ul (0-0.6); ABS Lymphocytes 1.6 10^3/ul (1.0-4.8); ABS Neutrophils 6.6 10^3/ul (1.5-7.7); Eosinophil % 2.5 %; Hematocrit 27 % (35-47); Hemoglobin 9.3 g/dL (12.0-16.0); Lymphocyte % 16.6 %; Mean Corpuscular HGB Conc 34 g/dL (31-36); Mean Corpuscular Hemoglobin 32 pg (27-31); Mean Corpuscular Volume 93 fL (80-97); Mean Platelet Volume 8.3 fL (7.4-10.4); Platelet Count 240 10^3/uL (150-450); Red Blood Count 2.95 10^6 /uL (3.70-4.87); Red Cell Distribution Width 15 % (10-15); White Blood Count 9.5 10^3/uL (3.5-10.8)
[2019-05-04 06:43] LABS: BUN/Creatinine Ratio 15.1 (8-20); Calcium 8.4 mg/dL (8.6-10.3); EGFR African American 98.1 (>60); Potassium 3.8 mmol/L (3.5-5.0)
[2019-05-04 06:53] LABS: Troponin I 0.08 ng/mL (<0.04)
[2019-05-04 07:03] LABS: Free T4 1.04 ng/dL (0.61-1.12)
[2019-05-04] MEDS: Insulin LISPRO* 1 UNITS UNIT SUBCUT SCH ×4 (08:40→21:57)
[2019-05-04] MEDS: oxyCODONE/Acetamin 5/325 MG* TAB PO PRN (08:47)
[2019-05-04] MEDS: Multivitamins/Minerals TAB PO SCH (08:49)
[2019-05-04] MEDS: Cholecalciferol TAB* 1000 UNITS PO SCH ×2 (08:49→21:54)
[2019-05-04] MEDS: Gabapentin CAP(*) 400 MG PO SCH ×3 (08:51→21:55)
[2019-05-04] MEDS: Pantoprazole TAB * 40 MG TAB PO SCH (08:51)
[2019-05-04] MEDS ORDERED: Lisinopril TAB* 5 MG PO SCH (09:00)
[2019-05-04] MEDS: Propranolol TAB* 40 MG PO SCH ×3 (09:27→22:10)
[2019-05-04] MEDS: Citalopram TAB* 40 MG PO SCH (09:28)
[2019-05-04] MEDS: LAMOTRIGINE 200 MG PO SCH (09:29)
--- NOTE | 2019-05-04 09:56 | PN ---
Subjective Date of Service: 05/04/19 Interval History: Ms. Mckeon states that she feels exhausted today. She confirms having felt feverish and notes that she always feels a bit nauseas whenever she has a fever. She denies other complaint including chest pain, SOB, cough. Objective Active Medications: Acetaminophen (Tylenol Tab*) 650 mg PO Q6H PRN Aripiprazole (Abilify Tab*) 10 mg PO BEDTIME MARISSA Atorvastatin Calcium (Lipitor*) 40 mg PO BEDTIME MARISSA Cholecalciferol (Vitamin D Tab*) 1,000 units PO BID MARISSA Citalopram Hydrobromide (Celexa Tab*) 40 mg PO QAM MARISSA Dextrose (Dextrose 50% Vial 50 Ml*) 25 ml IV PUSH .FOR FS < 60 - SS PRN Enoxaparin Sodium (Lovenox(*)) 40 mg SUBCUT 0600 MARISSA Gabapentin (Neurontin Cap(*)) 400 mg PO TID [facility] Ceftriaxone Sodium 1 gm/ (Sodium Chloride) 50 mls @ 100 mls/hr IVPB 0600 [facility] Insulin Human Lispro (Humalog*) 0 units SUBCUT ACHS MARISSA; Protocol Lamotrigine (Lamictal Xr (Nf)) 200 mg PO QAM [facility] Lisinopril (Prinivil Tab*) 2.5 mg PO QAM [facility] Melatonin (Melatonin) 6 mg PO BEDTIME [facility] Multivitamins/Minerals (Theragran/Minerals Tab*) 1 tab PO QAM MARISSA Oxycodone/Acetaminophen (Percocet 5/325 Tab*) 1 tab PO Q4H PRN Oxycodone/Acetaminophen (Percocet 5/325 Tab*) 2 tab PO Q4H PRN Pantoprazole Sodium (Protonix Tab*) 40 mg PO QAM MARISSA Primidone (Mysoline Tab(*)) 250 mg PO BEDTIME MARISSA Primidone (Mysoline Tab(*)) 200 mg PO BEDTIME MARISSA Propranolol HCl (Inderal Tab*) 20 mg PO TID [facility] Vital Signs: Temp Pulse Resp BP Pulse Ox 97.8 F 78 18 123/46 96 05/04/19 08:15 05/04/19 08:15 05/04/19 08:51 05/04/19 08:15 05/04/19 08:15 Oxygen Devices in Use Now: Nasal Cannula Appearance: Female lying in bed in NAD Eyes: No Scleral Icterus Ears/Nose/Mouth/Throat: Mucous Membranes Moist Neck: Trachea Midline Respiratory: Symmetrical Chest Expansion and Respiratory Effort, Clear to Auscultation Cardiovascular: NL Sounds; No Murmurs; No JVD, - - Trace LE edema Abdominal: NL Sounds; No Tenderness; No Distention Skin: - - Mild erythema, warmth to left knee about the left knee incision, no drainage Neurological: Alert and Oriented x 3, NL Muscle Strength and Tone Nutrition: Taking PO's Result Diagrams: 05/04/19 06:16 05/04/19 06:16 Assess/Plan/Problems-Billing Assessment: Ms. Mckeon is a 59 yo F with a PMH of recent elective left knee replacement ( discharged 05/03/19), depression, NIDDM, hypertension who was admitted on with fever and weakness with concern for potential left knee post-operative infection. - Patient Problems (1) Sepsis Comment: - T max 100.3 thus far, HR 92 -> does not technically meet sepsis criteria - Given weakness, fever and recent surgery - concern for post-op infection - UA negative, cxray negative, patient denies focal symptom - Monitor blood cultures (2) Knee joint replacement status Comment: - ? post-operative infection, mild erythema and warmth, no drainage - Have consulted Dr Casanova (Dr Spaulding performed the surgery) - Continue ceftriaxone (3) HTN (hypertension) Comment: - SBPs 90s-120s. - Hold lisinopril, cont propranolol (for tremor as well) (4) DM2 (diabetes mellitus, type 2) Comment: - BGs 140-220s - Continue lispro SSI coverage with meals - Hold metformin (5) Benign essential tremor Comment: - Cont primidone and propranolol (6) Depression Comment: - Continue abilify, citalopram, lamotrigine (7) DVT prophylaxis Comment: - Continue lovenox (8) Full code status Comment: Status and Disposition: Convert to inpatient. Spoke with patient's primary care provider (Dr Quarles) and she notes significant concern for patient returning home at discharge and strongly recommends that patient consider sub-acute rehab.
--- NOTE | 2019-05-04 13:53 | CONS ---
CONSULTATION NOTE: DATE OF CONSULT: 05/04/19 REASON FOR CONSULT: Possible left total knee arthroplasty infection. HISTORY OF PRESENT ILLNESS: The patient is a 59-year-old woman, who had severe left knee pain and os teoarthritis, who had a left total knee arthroplasty done by my partner, Dr. Spaulding, on 05/01/19, was discharged home on postoperative day 2, 05/03/19, and during that first day at home, fell twice and r eturned to the hospital. The patient has hypertension, hypercholesterolemia, and type 2 diabetes along with depression, anxiet y, resting tremor, and morbid obesity. Surgery was done on 05/01/19. Uneventful postoperative cours e. Discharged on postoperative day 2 to home. Once the patient got to home, she fell. The patient stated that her left knee gave out on her. Ther e was no specific trip and fall. This fall actually happened while the patient was using a walker. The patient was noted to have a body temperature of 100.3 either by family or by EMS workers. The pa pretty was brought into [facility] and admitted to the hospitalist service overnight for generalized weakness , elevated troponin. There were concerns regarding the left knee and a possible infection given the slightly elevated body temperature, some warmth and some erythema about the left knee. PAST MEDICAL HISTORY: Diabetes mellitus, [id number]; hypertension; hyperlipidemia; morbid obesity; osteoarthritis; anxiety; resting tremor; PTSD; memory impairment; left bundle branch block. PAST SURGICAL HISTORY: Dilatation and curettage, tonsillectomy, adrenalectomy. The patient had a con tralateral right total knee arthroplasty on 01/28/19. MEDICATIONS: 1. Percocet p.r.n. 2. Abilify. 3. Lovenox 40 mg subcu daily. 4. Celexa. 5. Vitamin D. 6. Atorvastatin. 7. Tylenol p.r.n. 8. Omeprazole. 9. Multivitamin. 10. Melatonin q.h.s. 11. Lisinopril. 12. Neurontin. 13. Primidone. 14. Lamotrigine. 15. Metformin. 16. Propranolol. ALLERGIES: SULFA DRUGS (difficulty breathing and hives). FAMILY HISTORY: Noncontributory. SOCIAL HISTORY: The patient has never been a cigarette smoker. She is not currently working. She l nelia with her brother. There is some question about whether or not Erik is a surrogate for her to make healthcare decisions. REVIEW OF SYSTEMS: The patient describes left knee pain, decreased from several days ago. She feels sweaty. PHYSICAL EXAM: Body temperature is currently 97.8 degrees Fahrenheit. The patient's T-max during is admission was 100.3 when she first arrived at 9:05 p.m. last night. She has been afebrile since 1 0:45 p.m. last night. At 11:15 this morning, the patient had a heart rate of 72, blood pressure 125/ 55, respiratory rate 20, and O2 sat 96% on room air. No acute distress. The patient is diaphoretic, but otherwise does not appear toxic. The patient had multiple family members or friends in the room. Appropriate dress and hygiene for a hospitalized pat ient, well-coordinated bilateral upper and lower extremities. Left knee exam shows an incision that is clean, dry, and intact. There was only minimal bloody spott ing, several drops, on the dressing when I removed it. This dressing must have been placed last nigh t, so very minimal drainage overnight. To my eye, there was no skin erythema whatsoever. There was some warmth to the touch. No significant joint effusion. Only mild soft tissue swelling about the le ft knee. Neurovascularly intact distally. The patient was able to tolerate 10 to 90 degrees of flexi on, passively of the left knee. There was some discomfort, but the patient allowed me to repeatedly move, the knee, range it passively from 20 to 80 degrees of flexion, with some vigor without her jump ing off the bed. DIAGNOSTIC STUDIES/LAB DATA: White blood cell count 9.5 with a neutrophil percentage of 70.1. CRP a t admission last night was 253. No ESR drawn. The patient's most recent blood glucose was 132. The patient had a troponin I of 0.15 at admission that has trended down to 0.08. The patient has a urin alysis with negative urine nitrite, negative leukocyte esterase, but positive 1+ urine white blood ce lls; however, there are also squamous epithelial cells. Negative urine bacteria. Imaging: No imaging. ASSESSMENT: 1. Status post 05/01/19 left total knee arthroplasty. 2. Generalized weakness. 3. Low-grade elevated body temperature at admission, now normalized. PLAN: 1. I saw no sign on exam whatsoever of an infection to the left knee. Exam was not consistent with deep or superficial infection. 2. I placed dry sterile dressings, ABDs and an Daniel bandage about the left knee. 3. No further workup is required regarding the possibility of a left knee infection. I would recomm end routine postoperative management with regards to that with dressing change once daily and physica l therapy for range of motion and strengthening left knee as the patient can tolerate either as an in patient or an outpatient or with visits home. 4. The CRP elevation can be explained by the patient being only 3 days postoperative. So too can th at explain the low-grade temperature, caused by some atelectasis postoperatively, especially as the t emperature has now been normalized. 5. Hospitalist has not identified any other possible source of infection. They plan on ceftriaxone overnight, which is fine. 6. Disposition planning can be started. Unclear if the patient will have the stamina to go home or if she will need rehabilitation placement. 7. Defer to hospitalist service for management of the patient's multiple medical problems including, but not limited to the troponin leak. 8. I told the patient to follow up with Dr. Spaulding as previously scheduled in the next several weeks for her first postoperative visit in clinic. [id number]/[facility] #: [id number]
[2019-05-04] MEDS: Melatonin 3 MG TAB PO SCH (21:54)
[2019-05-04] MEDS: Nystatin TOP POWDER* 15 GM BTL TOPICAL SCH (22:00)
[2019-05-05 05:44] LABS: ABS Eosinophils 0.4 10^3/ul (0-0.6); ABS Lymphocytes 1.4 10^3/ul (1.0-4.8); ABS Monocytes 0.7 10^3/ul (0-0.8); ABS Neutrophils 4.4 10^3/ul (1.5-7.7); Eosinophil % 5.5 %; Hematocrit 25 % (35-47); Hemoglobin 8.6 g/dL (12.0-16.0); Lymphocyte % 20.4 %; Mean Corpuscular HGB Conc 34 g/dL (31-36); Mean Corpuscular Hemoglobin 31 pg (27-31); Mean Corpuscular Volume 93 fL (80-97); Mean Platelet Volume 8.3 fL (7.4-10.4); Platelet Count 271 10^3/uL (150-450); Red Blood Count 2.73 10^6 /uL (3.70-4.87); Red Cell Distribution Width 15 % (10-15); White Blood Count 6.9 10^3/uL (3.5-10.8)
[2019-05-05] MEDS: Enoxaparin(*) 40 MG/0.4 ML SYR SUBCUT SCH (05:50)
[2019-05-05] MEDS: cefTRIAXone(*) 1 GM in NS 0.9% 50 ML* 50 ML IVPB SCH (05:55)
[2019-05-05 06:03] LABS: BUN/Creatinine Ratio 14.5 (8-20); EGFR African American 93.6 (>60); EGFR Non-African American 77.4 (>60)
[2019-05-05] MEDS ORDERED: Influenza VAC *QUAD* 2019-20* 0.5 ML SYRINGE IM ONE (09:00)
[2019-05-05] MEDS: Cholecalciferol TAB* 1000 UNITS PO SCH ×2 (09:31→21:09)
[2019-05-05] MEDS: Gabapentin CAP(*) 400 MG PO SCH ×3 (09:31→21:09)
[2019-05-05] MEDS: LAMOTRIGINE 200 MG PO SCH (09:31)
[2019-05-05] MEDS: Pantoprazole TAB * 40 MG TAB PO SCH (09:32)
[2019-05-05] MEDS: Citalopram TAB* 40 MG PO SCH (09:32)
[2019-05-05] MEDS: oxyCODONE/Acetamin 5/325 MG* TAB PO PRN ×2 (09:32→14:55)
[2019-05-05] MEDS: Multivitamins/Minerals TAB PO SCH (09:32)
[2019-05-05] MEDS: Nystatin TOP POWDER* 15 GM BTL TOPICAL SCH ×2 (09:34→21:21)
[2019-05-05] MEDS: Insulin LISPRO* 1 UNITS UNIT SUBCUT SCH ×4 (09:34→21:10)
[2019-05-05] MEDS: Propranolol TAB* 40 MG PO SCH ×3 (09:53→21:08)
--- NOTE | 2019-05-05 11:04 | PN ---
Progress Note - Progress Note Date of Service: 05/05/19 SOAP: Subjective: []Pt seen and examined at bedside. She is feeling well without CP, SOB, dizziness, nausea, abd pain, dysruria, feeling of fever or chills. Knee is painful but pain is unchanged in severity or character since falling at home. Objective: []Gen: appears well, NAD LLE: Left knee dressing changed, incision CDI no erythema or discharge. Able to f/e 5-70 without severe pain. NVI distally Calves supple and nontender without erythema, edema or palpable cords Assessment: []SP LTK with fall x 2 at home Plan: []WBAT PT/OT chemical DVT prophy x 30 days post op, on lovenox xrays without fracture or hardware failure ready for DC, rehab vs home with services depending on progress with PT/OT and home support from family/friends Vital Signs Temp 98.3 F 05/05/19 07:15 Pulse 79 05/05/19 07:15 Resp 18 05/05/19 09:32 BP 121/56 05/05/19 07:15 Pulse Ox 96 05/05/19 07:15 Intake & Output 05/04/19 05/05/19 05/05/19 18:59 06:59 18:59 Intake Total 600 50 Output Total 0 Balance 600 50 Intake: IVPB 50 Oral 600 0 Output: Urine 0 Other: Estimated Void Small Laboratory Last Values WBC 6.9 10^3/uL (3.5-10.8) 05/05/19 05:17 RBC 2.73 10^6 /uL (3.70-4.87) L 05/05/19 05:17 Hgb 8.6 g/dL (12.0-16.0) L 05/05/19 05:17 Hct 25 % (35-47) L 05/05/19 05:17 MCV 93 fL (80-97) 05/05/19 05:17 MCH 31 pg (27-31) 05/05/19 05:17 MCHC 34 g/dL (31-36) 05/05/19 05:17 RDW 15 % (10-15) 05/05/19 05:17 Plt Count 271 10^3/uL (150-450) 05/05/19 05:17 MPV 8.3 fL (7.4-10.4) 05/05/19 05:17 Neut % (Auto) 63.5 % 05/05/19 05:17 Lymph % (Auto) 20.4 % 05/05/19 05:17 [place] % (Auto) 10.3 % 05/05/19 05:17 Eos % (Auto) 5.5 % 05/05/19 05:17 Baso % (Auto) 0.3 % 05/05/19 05:17 Absolute Neuts (auto) 4.4 10^3/ul (1.5-7.7) 05/05/19 05:17 Absolute Lymphs (auto) 1.4 10^3/ul (1.0-4.8) 05/05/19 05:17 Absolute Monos (auto) 0.7 10^3/ul (0-0.8) 05/05/19 05:17 Absolute Eos (auto) 0.4 10^3/ul (0-0.6) 05/05/19 05:17 Absolute Basos (auto) 0.0 10^3/ul (0-0.2) 05/05/19 05:17 Absolute Nucleated RBC 0.0 10^3/ul 05/05/19 05:17 Nucleated RBC % 0.0 05/05/19 05:17 Sodium 138 mmol/L (135-145) 05/05/19 05:17 Potassium 4.0 mmol/L (3.5-5.0) 05/05/19 05:17 Chloride 104 mmol/L (101-111) 05/05/19 05:17 Carbon Dioxide 29 mmol/L (22-32) 05/05/19 05:17 Anion Gap 5 mmol/L (2-11) 05/05/19 05:17 BUN 11 mg/dL (6-24) 05/05/19 05:17 Creatinine 0.76 mg/dL (0.51-0.95) 05/05/19 05:17 Est GFR ( Amer) 93.6 (>60) 05/05/19 05:17 Est GFR (Non-Af Amer) 77.4 (>60) 05/05/19 05:17 BUN/Creatinine Ratio 14.5 (8-20) 05/05/19 05:17 Glucose 144 mg/dL (70-100) H 05/05/19 05:17 POC Glucose (mg/dL) 158 mg/dL (70-100) H 05/05/19 07:24 Lactic Acid 1.4 mmol/L (0.5-2.0) 05/03/19 22:46 Calcium 8.0 mg/dL (8.6-10.3) L 05/05/19 05:17 Magnesium 2.2 mg/dL (1.9-2.7) 05/03/19 22:46 Total Bilirubin 0.30 mg/dL (0.2-1.0) 05/03/19 22:46 AST 34 U/L (13-39) 05/03/19 22:46 ALT 25 U/L (7-52) 05/03/19 22:46 Alkaline Phosphatase 90 U/L (34-104) 05/03/19 22:46 Troponin I 0.08 ng/mL (<0.04) H* 05/04/19 06:16 C-Reactive Protein 253.55 mg/L (<8.01) H 05/03/19 22:46 B-Natriuretic Peptide 271 pg/mL (<=100) H 05/03/19 22:46 Total Protein 5.6 g/dL (6.4-8.9) L 05/03/19 22:46 Albumin 3.1 g/dL (3.2-5.2) L 05/03/19 22:46 Globulin 2.5 g/dL (2-4) 05/03/19 22:46 Albumin/Globulin Ratio 1.2 (1-3) 05/03/19 22:46 TSH 0.24 mcIU/mL (0.34-5.60) L 05/03/19 22:46 Free T4 1.04 ng/dL (0.61-1.12) 05/04/19 06:16 Total T3 51 ng/dL (87-178) L 05/04/19 06:16 Urine Color Yellow 05/04/19 03:15 Urine Appearance Cloudy 05/04/19 03:15 Urine pH 5.0 (5-9) 05/04/19 03:15 Ur Specific Cameron 1.018 (1.010-1.030) 05/04/19 03:15 Urine Protein 2+(100 mg/dl) (Negative) A 05/04/19 03:15 Urine Ketones Negative (Negative) 05/04/19 03:15 Urine Blood 2+ (Negative) A 05/04/19 03:15 Urine Nitrate Negative (Negative) 05/04/19 03:15 Urine Bilirubin Negative (Negative) 05/04/19 03:15 Urine Urobilinogen Negative (Negative) 05/04/19 03:15 Ur Leukocyte Esterase Negative (Negative) 05/04/19 03:15 Urine WBC (Auto) 1+(6-10/hpf) (Absent) A 05/04/19 03:15 Urine RBC (Auto) 3+(>10/hpf) (Absent) A 05/04/19 03:15 Ur Squamous Epith Cells Present (Absent) A 05/04/19 03:15 Urine Bacteria Absent (Absent) 05/04/19 03:15 Urine Glucose 1+(50 mg/dl) (Negative) A 05/04/19 03:15
--- NOTE | 2019-05-05 11:50 | PN ---
Subjective Date of Service: 05/05/19 Interval History: Ms. Mckeon is very tearful today. She continues to have some difficulty with ambulation and ADLs, and is considering [facility], but is concerned that she will have no one to look after her father. She lives with father, brother, but brother lives upstairs and she is primary caregiver. Pt has been requiring O2 during admission, which she does not require at baseline. She dnies SOB, cough, fever. She has no other complaints today. Objective Active Medications: Acetaminophen (Tylenol Tab*) 650 mg PO Q6H PRN Aripiprazole (Abilify Tab*) 10 mg PO BEDTIME MARISSA Atorvastatin Calcium (Lipitor*) 40 mg PO BEDTIME MARISSA Cholecalciferol (Vitamin D Tab*) 1,000 units PO BID MARISSA Citalopram Hydrobromide (Celexa Tab*) 40 mg PO QAM MARISSA Dextrose (Dextrose 50% Vial 50 Ml*) 25 ml IV PUSH .FOR FS < 60 - SS PRN Enoxaparin Sodium (Lovenox(*)) 40 mg SUBCUT 0600 MARISSA Gabapentin (Neurontin Cap(*)) 400 mg PO TID MARISSA Ceftriaxone Sodium 1 gm/ (Sodium Chloride) 50 mls @ 100 mls/hr IVPB 0600 MARISSA Insulin Human Lispro (Humalog*) 0 units SUBCUT ACHS MARISSA; Protocol Lamotrigine (Lamictal Xr (Nf)) 200 mg PO QAM [facility] Melatonin (Melatonin) 6 mg PO BEDTIME MARISSA Multivitamins/Minerals (Theragran/Minerals Tab*) 1 tab PO QAM MARISSA Nystatin (Nystatin Top Powder*) 1 applic TOPICAL BID MARISSA Oxycodone/Acetaminophen (Percocet 5/325 Tab*) 1 tab PO Q4H PRN Oxycodone/Acetaminophen (Percocet 5/325 Tab*) 2 tab PO Q4H PRN Pantoprazole Sodium (Protonix Tab*) 40 mg PO QAM MARISSA Primidone (Mysoline Tab(*)) 250 mg PO BEDTIME MARISSA Primidone (Mysoline Tab(*)) 200 mg PO BEDTIME MARISSA Propranolol HCl (Inderal Tab*) 20 mg PO TID MARISSA Vital Signs: Temp Pulse Resp BP Pulse Ox 98.3 F 79 18 121/56 96 05/05/19 07:15 05/05/19 07:15 05/05/19 11:50 05/05/19 07:15 05/05/19 07:15 Oxygen Devices in Use Now: Nasal Cannula Appearance: Pt is sitting up in chair with b/l LE elevated. She is unkempt, tearful. Ears/Nose/Mouth/Throat: NL Teeth, Lips, Gums, Clear Oropharnyx, Mucous Membranes Moist Neck: NL Appearance and Movements; NL JVP, Trachea Midline Respiratory: Symmetrical Chest Expansion and Respiratory Effort, Clear to Auscultation Cardiovascular: NL Sounds; No Murmurs; No JVD, RRR, No Edema Abdominal: NL Sounds; No Tenderness; No Distention, No Hepatosplenomegaly Extremities: No Edema, No Clubbing, Cyanosis, - - L knee with slow ROM; patient uses arms to assist with ROM of L knee. Dressing in place is CDI. Wound without dehiscense, discharge, erythema, or edema. Neurological: Alert and Oriented x 3, NL Muscle Strength and Tone Result Diagrams: 05/05/19 05:17 05/05/19 05:17 Microbiology and Other Data: Microbiology 05/03/19 22:46 Aerobic Blood Culture - Preliminary Blood Venous No Growth Day 1 Anaerobic Blood Culture - Preliminary No Growth Day 1 05/03/19 22:46 Aerobic Blood Culture - Preliminary Blood Venous No Growth Day 1 Anaerobic Blood Culture - Preliminary No Growth Day 1 Assess/Plan/Problems-Billing Assessment: Ms. Mckeon is a 59 yo F with a PMH of recent elective left knee replacement ( discharged 05/03/19), depression, NIDDM, hypertension who was admitted on with fever and weakness with concern for potential left knee post-operative infection. - Patient Problems (1) Sepsis Comment: - T max 100.3 at admission, HR 92 -> does not technically meet sepsis criteria - Afebrile since admission, without tachycardia - Given weakness, fever and recent surgery concern for post-op infection - Ortho consulted and pt is without signs of infection on exam, x-rays without gross abnormality - CXR negative, patient denies focal symptoms - UA negative; urine culture reveals moderate cc pseudomonas - Ceftriaxone appropriate; continue for a total of 3 doses - BC NGTD (2) Knee joint replacement status Comment: - POD 4 - Dr Casanova consutled (Dr Spaulding performed the surgery); no signs of infection (3) DM2 (diabetes mellitus, type 2) Comment: - BGs 150-200s - Continue lispro SSI coverage with meals - Hold metformin (4) HTN (hypertension) Comment: - SBPs well controlled around 120's - Will continue to monitor need to restart lisinopril - Continue propranolol (5) Benign essential tremor Comment: - Cont primidone and propranolol (6) Depression Comment: - Continue abilify, citalopram, lamotrigine (7) DVT prophylaxis Comment: - Continue lovenox - Will continue for 30d post-op, per ortho recommendations (8) Full code status Comment: Status and Disposition: Convert to inpatient. Spoke with patient's primary care provider (Dr Quarles) and she notes significant concern for patient returning home at discharge and strongly recommends that patient consider sub-acute rehab. Patient is considering [facility]. Awaiting PT suggestions for [facility] vs. outpatient rehab.
[2019-05-05] MEDS: Primidone TAB(*) 250 MG PO SCH (21:06)
[2019-05-05] MEDS: ARIPiprazole TAB* 5 MG PO SCH (21:07)
[2019-05-05] MEDS: Atorvastatin* 40 MG TAB PO SCH (21:07)
[2019-05-05] MEDS: Melatonin 3 MG TAB PO SCH (21:18)
[2019-05-05] MEDS: Primidone TAB(*) 50 MG PO SCH (21:19)
[2019-05-06] MEDS: Enoxaparin(*) 40 MG/0.4 ML SYR SUBCUT SCH (05:48)
[2019-05-06] MEDS: cefTRIAXone(*) 1 GM in NS 0.9% 50 ML* 50 ML IVPB SCH (05:58)
[2019-05-06 06:53] LABS: ABS Eosinophils 0.4 10^3/ul (0-0.6); ABS Lymphocytes 1.8 10^3/ul (1.0-4.8); ABS Monocytes 0.6 10^3/ul (0-0.8); Eosinophil % 6.2 %; Hematocrit 26 % (35-47); Hemoglobin 8.9 g/dL (12.0-16.0); Lymphocyte % 26.4 %; Mean Corpuscular HGB Conc 34 g/dL (31-36); Mean Corpuscular Hemoglobin 31 pg (27-31); Mean Corpuscular Volume 93 fL (80-97); Mean Platelet Volume 8.1 fL (7.4-10.4); Platelet Count 303 10^3/uL (150-450); Red Blood Count 2.84 10^6 /uL (3.70-4.87); Red Cell Distribution Width 15 % (10-15); White Blood Count 6.9 10^3/uL (3.5-10.8)
[2019-05-06 07:10] LABS: BUN/Creatinine Ratio 13.5 (8-20); Calcium 8.6 mg/dL (8.6-10.3); EGFR African American 96.5 (>60); EGFR Non-African American 79.8 (>60); Potassium 4.3 mmol/L (3.5-5.0)
[2019-05-06] MEDS: LAMOTRIGINE 200 MG PO SCH (09:30)
[2019-05-06] MEDS: Propranolol TAB* 40 MG PO SCH ×3 (09:31→21:24)
[2019-05-06] MEDS: Cholecalciferol TAB* 1000 UNITS PO SCH ×2 (09:31→21:25)
[2019-05-06] MEDS: Pantoprazole TAB * 40 MG TAB PO SCH (09:32)
[2019-05-06] MEDS: Citalopram TAB* 40 MG PO SCH (09:32)
[2019-05-06] MEDS: oxyCODONE/Acetamin 5/325 MG* TAB PO PRN (09:32)
[2019-05-06] MEDS: Gabapentin CAP(*) 400 MG PO SCH ×3 (09:32→21:23)
[2019-05-06] MEDS: Multivitamins/Minerals TAB PO SCH (09:32)
[2019-05-06] MEDS: Nystatin TOP POWDER* 15 GM BTL TOPICAL SCH ×2 (09:34→21:27)
[2019-05-06] MEDS: Insulin LISPRO* 1 UNITS UNIT SUBCUT SCH ×4 (09:35→21:26)
--- NOTE | 2019-05-06 11:28 | PN ---
Progress Note - Progress Note Date of Service: 05/06/19 SOAP: Subjective: []Pt seen at bedside. Denies fever, chills, CP, SOB, dizziness, nausea. Knee pain is well controlled. Objective: []Gen: appears well, NAD LLE: Left knee dressing changed, incision CDI no discharge. Very mild erythema surrounding incision that is nontender to palpation. Able to f/e passively 5-70 without any pain whatsoever. NVI distally Calves supple and nontender without erythema, edema or palpable cords Assessment: []SP LTK with fall x 2 at home Plan: [][facility]AT PT/OT chemical DVT prophy x 30 days post op, on lovenox Ceftriaxone last dose was this morning. Placed on keflex 500 mg TID x 5 days, though suspect the mild erythema is early ecchymosis Ready for DC, rehab vs home with services depending on progress with PT/OT and home support from family/friends Vital Signs Temp 98 F 05/06/19 03:38 Pulse 80 05/06/19 03:38 Resp 17 05/06/19 09:32 BP 115/47 05/06/19 03:38 Pulse Ox 95 05/06/19 04:17 Intake & Output 05/05/19 05/06/19 05/06/19 18:59 06:59 18:59 Intake Total 840 0 Balance 840 0 Intake: Oral 840 0 Other: Estimated Void Medium # Bowel Movements 1 Estimated Stool Amount Medium # Voids 1 Laboratory Last Values WBC 6.9 10^3/uL (3.5-10.8) 05/06/19 06:13 RBC 2.84 10^6 /uL (3.70-4.87) L 05/06/19 06:13 Hgb 8.9 g/dL (12.0-16.0) L 05/06/19 06:13 Hct 26 % (35-47) L 05/06/19 06:13 MCV 93 fL (80-97) 05/06/19 06:13 MCH 31 pg (27-31) 05/06/19 06:13 MCHC 34 g/dL (31-36) 05/06/19 06:13 RDW 15 % (10-15) 05/06/19 06:13 Plt Count 303 10^3/uL (150-450) 05/06/19 06:13 MPV 8.1 fL (7.4-10.4) 05/06/19 06:13 Neut % (Auto) 57.4 % 05/06/19 06:13 Lymph % (Auto) 26.4 % 05/06/19 06:13 [place] % (Auto) 9.4 % 05/06/19 06:13 Eos % (Auto) 6.2 % 05/06/19 06:13 Baso % (Auto) 0.6 % 05/06/19 06:13 Absolute Neuts (auto) 4.0 10^3/ul (1.5-7.7) 05/06/19 06:13 Absolute Lymphs (auto) 1.8 10^3/ul (1.0-4.8) 05/06/19 06:13 Absolute Monos (auto) 0.6 10^3/ul (0-0.8) 05/06/19 06:13 Absolute Eos (auto) 0.4 10^3/ul (0-0.6) 05/06/19 06:13 Absolute Basos (auto) 0.0 10^3/ul (0-0.2) 05/06/19 06:13 Absolute Nucleated RBC 0.0 10^3/ul 05/06/19 06:13 Nucleated RBC % 0.0 05/06/19 06:13 Sodium 136 mmol/L (135-145) 05/06/19 06:13 Potassium 4.3 mmol/L (3.5-5.0) 05/06/19 06:13 Chloride 102 mmol/L (101-111) 05/06/19 06:13 Carbon Dioxide 29 mmol/L (22-32) 05/06/19 06:13 Anion Gap 5 mmol/L (2-11) 05/06/19 06:13 BUN 10 mg/dL (6-24) 05/06/19 06:13 Creatinine 0.74 mg/dL (0.51-0.95) 05/06/19 06:13 Est GFR ( Amer) 96.5 (>60) 05/06/19 06:13 Est GFR (Non-Af Amer) 79.8 (>60) 05/06/19 06:13 BUN/Creatinine Ratio 13.5 (8-20) 05/06/19 06:13 Glucose 144 mg/dL (70-100) H 05/06/19 06:13 POC Glucose (mg/dL) 161 mg/dL (70-100) H 05/06/19 08:05 Lactic Acid 1.4 mmol/L (0.5-2.0) 05/03/19 22:46 Calcium 8.6 mg/dL (8.6-10.3) 05/06/19 06:13 Magnesium 2.2 mg/dL (1.9-2.7) 05/03/19 22:46 Total Bilirubin 0.30 mg/dL (0.2-1.0) 05/03/19 22:46 AST 34 U/L (13-39) 05/03/19 22:46 ALT 25 U/L (7-52) 05/03/19 22:46 Alkaline Phosphatase 90 U/L (34-104) 05/03/19 22:46 Troponin I 0.08 ng/mL (<0.04) H* 05/04/19 06:16 C-Reactive Protein 253.55 mg/L (<8.01) H 05/03/19 22:46 B-Natriuretic Peptide 271 pg/mL (<=100) H 05/03/19 22:46 Total Protein 5.6 g/dL (6.4-8.9) L 05/03/19 22:46 Albumin 3.1 g/dL (3.2-5.2) L 05/03/19 22:46 Globulin 2.5 g/dL (2-4) 05/03/19 22:46 Albumin/Globulin Ratio 1.2 (1-3) 05/03/19 22:46 TSH 0.24 mcIU/mL (0.34-5.60) L 05/03/19 22:46 Free T4 1.04 ng/dL (0.61-1.12) 05/04/19 06:16 Total T3 51 ng/dL (87-178) L 05/04/19 06:16 Urine Color Yellow 05/04/19 03:15 Urine Appearance Cloudy 05/04/19 03:15 Urine pH 5.0 (5-9) 05/04/19 03:15 Ur Specific Jarratt 1.018 (1.010-1.030) 05/04/19 03:15 Urine Protein 2+(100 mg/dl) (Negative) A 05/04/19 03:15 Urine Ketones Negative (Negative) 05/04/19 03:15 Urine Blood 2+ (Negative) A 05/04/19 03:15 Urine Nitrate Negative (Negative) 05/04/19 03:15 Urine Bilirubin Negative (Negative) 05/04/19 03:15 Urine Urobilinogen Negative (Negative) 05/04/19 03:15 Ur Leukocyte Esterase Negative (Negative) 05/04/19 03:15 Urine WBC (Auto) 1+(6-10/hpf) (Absent) A 05/04/19 03:15 Urine RBC (Auto) 3+(>10/hpf) (Absent) A 05/04/19 03:15 Ur Squamous Epith Cells Present (Absent) A 05/04/19 03:15 Urine Bacteria Absent (Absent) 05/04/19 03:15 Urine Glucose 1+(50 mg/dl) (Negative) A 05/04/19 03:15
[2019-05-06] MEDS: Cephalexin CAP* 500 MG PO SCH ×2 (12:42→21:25)
--- NOTE | 2019-05-06 13:39 | PN ---
Subjective Date of Service: 05/06/19 Interval History: Pt is feeling somewhat depressed today, as she wishes to be discharged home, despite recommendations to go to [facility]. Despite this, she is agreeable to [facility] placement. She is feeling otherwise well today. She is eating, drinking okay. BM today, no urinary difficulties. Pt requiring O2 due to desaturation without O2, but denies SOB, cough, fever/chills. She has no other complaints today. Objective Active Medications: Acetaminophen (Tylenol Tab*) 650 mg PO Q6H PRN Aripiprazole (Abilify Tab*) 10 mg PO BEDTIME MARISSA Atorvastatin Calcium (Lipitor*) 40 mg PO BEDTIME MARISSA Cephalexin HCl (Keflex Cap*) 500 mg PO TID MARISSA Cholecalciferol (Vitamin D Tab*) 1,000 units PO BID MARISSA Citalopram Hydrobromide (Celexa Tab*) 40 mg PO QAM MARISSA Dextrose (Dextrose 50% Vial 50 Ml*) 25 ml IV PUSH .FOR FS < 60 - SS PRN Enoxaparin Sodium (Lovenox(*)) 40 mg SUBCUT 0600 MARISSA Gabapentin (Neurontin Cap(*)) 400 mg PO TID MARISSA Insulin Human Lispro (Humalog*) 0 units SUBCUT ACHS MARISSA; Protocol Lamotrigine (Lamictal Xr (Nf)) 200 mg PO QAM MARISSA Melatonin (Melatonin) 6 mg PO BEDTIME MARISSA Multivitamins/Minerals (Theragran/Minerals Tab*) 1 tab PO QAM MARISSA Nystatin (Nystatin Top Powder*) 1 applic TOPICAL BID MARISSA Oxycodone/Acetaminophen (Percocet 5/325 Tab*) 1 tab PO Q4H PRN Oxycodone/Acetaminophen (Percocet 5/325 Tab*) 2 tab PO Q4H PRN Pantoprazole Sodium (Protonix Tab*) 40 mg PO QAM MARISSA Primidone (Mysoline Tab(*)) 250 mg PO BEDTIME MARISSA Primidone (Mysoline Tab(*)) 200 mg PO BEDTIME MARISSA Propranolol HCl (Inderal Tab*) 20 mg PO TID MARISSA Vital Signs: Temp Pulse Resp BP Pulse Ox 97.9 F 79 17 104/45 96 05/06/19 07:33 05/06/19 07:33 05/06/19 13:09 05/06/19 07:33 05/06/19 07:33 Oxygen Devices in Use Now: None Appearance: Pt is sitting up in chair; father, brother in room with patient. She appears somewhat depressed with flat affect, but engages in conversation and is cooperative, appropriate. Eyes: No Scleral Icterus, PERRLA Ears/Nose/Mouth/Throat: NL Teeth, Lips, Gums, Clear Oropharnyx, Mucous Membranes Moist Neck: NL Appearance and Movements; NL JVP, Trachea Midline Respiratory: Symmetrical Chest Expansion and Respiratory Effort, Clear to Auscultation Cardiovascular: NL Sounds; No Murmurs; No JVD, RRR, No Edema Abdominal: NL Sounds; No Tenderness; No Distention Extremities: No Edema, No Clubbing, Cyanosis, - - L knee with erythema at incision site without edema, increase in warmth, drainage. Dressing is CDI. Pt able to flex/extend at L knee. Neurological: Alert and Oriented x 3 Result Diagrams: 05/06/19 06:13 05/06/19 06:13 Microbiology and Other Data: Microbiology 05/03/19 22:46 Aerobic Blood Culture - Preliminary Blood Venous No Growth Day 1 Anaerobic Blood Culture - Preliminary No Growth Day 1 05/03/19 22:46 Aerobic Blood Culture - Preliminary Blood Venous No Growth Day 1 Anaerobic Blood Culture - Preliminary No Growth Day 1 Assess/Plan/Problems-Billing Assessment: Ms. Mckeon is a 59 yo F with a PMH of recent elective left knee replacement ( discharged 05/03/19), depression, NIDDM, hypertension who was admitted on with fever and weakness with concern for potential left knee post-operative infection. - Patient Problems (1) Knee joint replacement status Comment: - POD 5 - Dr Casanova consutled (Dr Spaulding performed the surgery); no signs of infection - Erythema at incision site; Keflex started - Plan for d/c to [facility] (2) Sepsis Comment: - Resolved - T max 100.3 at admission, HR 92 -> does not technically meet sepsis criteria - Afebrile since admission, without tachycardia - Given weakness, fever and recent surgery concern for post-op infection - Ortho consulted and pt is without signs of infection on exam, x-rays without gross abnormality - CXR negative, patient denies focal symptoms - UA negative; urine culture reveals moderate cc pseudomonas - Ceftriaxone appropriate; continue for a total of 3 doses - BC NGTD (3) DM2 (diabetes mellitus, type 2) Comment: - BGs 160-200s - Continue lispro SSI coverage with meals - Hold metformin (4) HTN (hypertension) Comment: - SBPs well controlled around 120's - Will continue to monitor need to restart lisinopril - Continue propranolol (5) Benign essential tremor Comment: - Cont primidone and propranolol (6) Depression Comment: - Continue abilify, citalopram, lamotrigine (7) DVT prophylaxis Comment: - Continue lovenox - Will continue for 30d post-op, per ortho recommendations (8) Full code status Comment: Status and Disposition: Convert to inpatient. Spoke with patient's primary care provider (Dr Quarles) and she notes significant concern for patient returning home at discharge and strongly recommends that patient consider sub-acute rehab. Patient is considering [facility]. Awaiting PT suggestions for [facility] vs. outpatient rehab.
[2019-05-06] MEDS: Atorvastatin* 40 MG TAB PO SCH (21:23)
[2019-05-06] MEDS: Primidone TAB(*) 50 MG PO SCH (21:23)
[2019-05-06] MEDS: ARIPiprazole TAB* 5 MG PO SCH (21:24)
[2019-05-06] MEDS: Primidone TAB(*) 250 MG PO SCH (21:24)
[2019-05-06] MEDS: Melatonin 3 MG TAB PO SCH (21:24)
[2019-05-07 05:27] LABS: ABS Eosinophils 0.5 10^3/ul (0-0.6); ABS Lymphocytes 1.5 10^3/ul (1.0-4.8); ABS Monocytes 0.8 10^3/ul (0-0.8); Eosinophil % 6.9 %; Hematocrit 29 % (35-47); Hemoglobin 9.4 g/dL (12.0-16.0); Lymphocyte % 21.6 %; Mean Corpuscular HGB Conc 33 g/dL (31-36); Mean Corpuscular Hemoglobin 31 pg (27-31); Mean Corpuscular Volume 93 fL (80-97); Mean Platelet Volume 7.9 fL (7.4-10.4); Platelet Count 348 10^3/uL (150-450); Red Blood Count 3.08 10^6 /uL (3.70-4.87); Red Cell Distribution Width 15 % (10-15); White Blood Count 6.7 10^3/uL (3.5-10.8)
[2019-05-07 05:45] LABS: BUN/Creatinine Ratio 16.4 (8-20); Calcium 8.7 mg/dL (8.6-10.3); EGFR African American 98.1 (>60); Potassium 4.3 mmol/L (3.5-5.0)
[2019-05-07] MEDS: Enoxaparin(*) 40 MG/0.4 ML SYR SUBCUT SCH (05:58)
[2019-05-07] MEDS: oxyCODONE/Acetamin 5/325 MG* TAB PO PRN (08:25)
[2019-05-07] MEDS: Propranolol TAB* 40 MG PO SCH ×2 (08:28→14:25)
[2019-05-07] MEDS: Gabapentin CAP(*) 400 MG PO SCH ×2 (08:28→14:26)
[2019-05-07] MEDS: Multivitamins/Minerals TAB PO SCH (08:29)
[2019-05-07] MEDS: Cephalexin CAP* 500 MG PO SCH ×2 (08:29→14:26)
[2019-05-07] MEDS: LAMOTRIGINE 200 MG PO SCH (08:29)
[2019-05-07] MEDS: Cholecalciferol TAB* 1000 UNITS PO SCH (08:29)
[2019-05-07] MEDS: Pantoprazole TAB * 40 MG TAB PO SCH (08:29)
[2019-05-07] MEDS: Citalopram TAB* 40 MG PO SCH (08:29)
[2019-05-07] MEDS: Insulin LISPRO* 1 UNITS UNIT SUBCUT SCH ×2 (10:22→12:41)
[2019-05-07] MEDS: Nystatin TOP POWDER* 15 GM BTL TOPICAL SCH (10:23)
--- NOTE | 2019-05-07 12:25 | DS ---
CC: Dr. Armida Quarles; [facility] * DATE OF ADMISSION: 05/04/2019. DATE OF DISCHARGE: 05/07/2019. PRIMARY CARE PHYSICIAN: Dr. Armida Quarles. ATTENDING PHYSICIAN: Dr. Rosa Abreu * (dictated by NIRANJAN Rodriguez ). PRIMARY DIAGNOSES: 1. Fever. 2. Weakness. 3. Fall. 4. Pseudomonas UTI. 5. Left total knee replacement, postop day six. SECONDARY DIAGNOSES: 1. Diabetes mellitus, noninsulin independent. 2. Hypertension. 3. Hyperlipidemia. 4. Obesity. 5. Osteoarthritis. 6. Left bundle branch block. 7. Resting tremor. 8. PTSD. 9. Anxiety. 10. Status post adrenalectomy for a benign tumor. CONSULTATIONS WHILE IN THE HOSPITAL: Orthopedics: Plan: No signs on exam whatsoever of infection of left knee, exam not consistent with deep or superficial infection. No further work-up regarding the possibility of left knee infection. Recommend routine postoperative management with regards to dressing changes once daily, PT for range of motion and strengthening of the left knee. CRP elevation can be explained by postop day three status as can low grade fever due to some atelectasis postoperatively. DISCHARGE MEDICATIONS: Home medications: 1. Acetaminophen q.i.d. prn pain. 2. Aripiprazole 10 mg p.o. at bedtime. 3. Atorvastatin 40 mg p.o. at bedtime. 4. Cholecalciferol 1,000 units p.o. b.i.d. 5. Citalopram 40 mg p.o. q.a.m. 6. Enoxaparin 40 mg subcu q.24 hours times 30 days postop. 7. Gabapentin 400 mg p.o. t.i.d. 8. Lamotrigine 200 mg p.o. q.a.m. 9. Melatonin 5 mg p.o. at bedtime. 10. Metformin 1,000 mg p.o. b.i.d. 11. Multivitamin/mineral one tab p.o. daily. 12. Omeprazole 20 mg p.o. daily. 13. Oxycodone one to two tabs p.o. q.4 hours prn moderate to severe pain. 14. Primidone 450 mg p.o. at bedtime. 15. Propranolol 20 mg p.o. t.i.d. New home medications: Cephalexin 500 mg p.o. t.i.d. times 4 days. Discontinued home medications: Lisinopril 2.5 mg. HISTORY OF PRESENT ILLNESS/HOSPITAL COURSE: Ms. Mckeon is a 59-year-old female with a past medical history of diabetes, hypertension, hyperlipidemia, and obesity who presented to the ER on May 04 with complaints of generalized weakness leading to two falls and left knee pain. She is noted to be status post left total knee replacement with Dr. Spaulding on May 01. For full and complete details, please see the history and physical dictated by Dr. Kayode Adams. In short, the patient presents with weakness, falls, and knee pain. She is noted to have an elevated temperature and tachycardia. She was admitted for suspicious of infection. Orthopedics was consulted and examined the left knee. There were no signs of infection at the site. The patient's low grade fever was investigated throughout her stay. She did not meet sepsis criteria with tachycardia only and low grade fever. Chest x-ray was within normal limits. Urinalysis was initially negative, but later revealed moderate colony count of pseudomonas. She was initiated on Ceftriaxone at the start of admission and continued this for three days for treatment of UTI. Her fever resolved as did her tachycardia. T-max was 100.3 at admission. The patient had been experiencing weakness and had fallen twice. Physical therapy evaluated the patient and recommended subacute rehab. Her primary care provider also recommended subacute rehab in the setting of weakness. The patient is agreeable to this. She is eager for discharge home, but understands the need for rehab and is agreeable. She will be discharged to [facility]. The patient has a past medical history of hypertension. Her home medications include Lisinopril 2.5 and Propranolol which she is also on for benign essential tremors. Lisinopril has been held throughout her stay and the patient 's blood pressure has been well-controlled in the 120s. We will continue to hold this medication and she will follow-up with her primary care provider regarding need to restart the medication. The patient complains of left knee pain. She is postop day six currently. Her knee pain has been improving throughout her stay. She has been working with Physical Therapy. She will continue to work with Physical Therapy. Her left knee did start to develop some mild erythema around the surgical site at the end of her inpatient stay. She was started on Keflex for this and will continue this medication for five days. She will follow-up with Dr. Spaulding as an outpatient for further management of left total knee replacement. At the time of discharge, the patient notes that she is feeling well today. Her mood is more elevated than in recent past. She denies chest pain and shortness of breath. There was noted to be a time when she was on oxygen during her inpatient stay. She is now satting in the mid to high 90s on room air and is ambulating without oxygen. She denies cough, fever, chills, and sweats. She denies abdominal pain, nausea, vomiting, diarrhea, and constipation. Last bowel movement was today. She does complain of left knee pain which is improving. She also complains of left shoulder pain which she has had for months. She has no other complaints at this time. REVIEW OF SYSTEMS: A ten point review of systems has been performed and all the pertinent positive and negatives are in the HPI. All other systems are negative. PHYSICAL EXAMINATION: General: Ms. Mckeon is a well-developed, well-nourished, obese, middle-aged woman who appears older than her stated age. She has a flat affect, but intermittently smiles. She is in no acute distress. She is pleasant and cooperative with good hygiene. HEENT: PERRL, EOMI, nonicteric sclerae. Hearing grossly intact. Oral mucous membranes are moist, there are no lesions. Pharynx is clear. Cardiovascular: Regular rate and rhythm with S1, S2 present without murmurs, rubs, clicks, or gallops. There is no JVD. There is no peripheral edema. Radial and pedal pulses are palpable. Pulmonary: Symmetrical chest expansion without use of accessory muscles. Lungs: Clear to auscultation bilaterally without rhonchi, wheezes, or rubs. The patient is no longer using O2. No digital clubbing or cyanosis. Abdomen: Obese. Bowel sounds in all quadrants. The abdomen is soft and nontender to palpation. Musculoskeletal: Upper extremities with full range of motion, 5/5 strength equal. Right lower extremity with full range of motion, 5/5 strength. Left lower extremity with slow range of motion of the left knee, nonpainful flexion and extension, strength 5/5. Neuro: The patient is awake. She is alert and oriented times three with cranial nerves grossly intact. Strength is equal and bilateral upper and lower extremities. DISCHARGE PLAN: Ms. Mckeon will be discharged to [facility] for PT/OT. Medications: 1. Discontinue Lisinopril 2.5 mg p.o. daily. Monitor blood pressure for need to restart medication. 2. Continue Keflex three times daily for four days. 3. Continue Lovenox for 30 days postop, date of left total knee arthroplasty . DIET: Heart-healthy, ADA. ACTIVITY: As tolerated. CONDITION ON DISCHARGE: Good. DISPOSITION: Discharged to [facility] for PT/OT. EDUCATION: 1. Follow-up with primary care provider in four to seven days of discharge from [facility]. 2. Follow-up with Orthopedics as scheduled. This is a summarized report of a complex medical history and hospital stay. For further details, please see the entire medical record. TIME SPENT: Approximately 35 minutes were spent on this discharge, greater than half of that time was spent [id number] with the patient discussing discharge plans and instructions. NIRANJAN HU [id number]/CPS #: [id number] UZIEL
--- NOTE | 2019-05-07 12:34 | PN ---
Progress Note - Progress Note Date of Service: 05/07/19 SOAP: Subjective: []Pt seen OOB in chair. She feels well without complaints. Denies fever, chills , left knee pain. Objective: []Gen: appears well, NAD LLE: Left knee dressing changed, incision CDI no discharge. Very mild erythema surrounding incision that is nontender to palpation. Able to actively flex / extend 5-80 without any pain whatsoever. NVI distally Calves supple and nontender without erythema, edema or palpable cords Assessment: []SP LTK with fall x 2 at home Plan: []WBAT PT/OT chemical DVT prophy x 30 days post op, on lovenox Placed on keflex 500 mg TID x 5 days, though suspect the mild erythema is early ecchymosis Ready for DC, rehab vs home with services depending on progress with PT/OT and home support from family/friends Vital Signs Temp 98.8 F 05/07/19 08:00 Pulse 76 05/07/19 08:00 Resp 16 05/07/19 08:28 BP 134/53 05/07/19 08:00 Pulse Ox 98 05/07/19 08:00 Intake & Output 05/06/19 05/07/19 05/07/19 18:59 06:59 18:59 Intake Total 890 480 360 Output Total 0 Balance 890 480 360 Intake: IV Fluids 50 Oral 840 480 360 Output: Urine 0 Other: Estimated Void Small Medium # Bowel Movements 1 Estimated Stool Amount Small # Voids 3 Laboratory Last Values WBC 6.7 10^3/uL (3.5-10.8) 05/07/19 04:51 RBC 3.08 10^6 /uL (3.70-4.87) L 05/07/19 04:51 Hgb 9.4 g/dL (12.0-16.0) L 05/07/19 04:51 Hct 29 % (35-47) L 05/07/19 04:51 MCV 93 fL (80-97) 05/07/19 04:51 MCH 31 pg (27-31) 05/07/19 04:51 MCHC 33 g/dL (31-36) 05/07/19 04:51 RDW 15 % (10-15) 05/07/19 04:51 Plt Count 348 10^3/uL (150-450) 05/07/19 04:51 MPV 7.9 fL (7.4-10.4) 05/07/19 04:51 Neut % (Auto) 59.3 % 05/07/19 04:51 Lymph % (Auto) 21.6 % 05/07/19 04:51 [place] % (Auto) 11.8 % 05/07/19 04:51 Eos % (Auto) 6.9 % 05/07/19 04:51 Baso % (Auto) 0.4 % 05/07/19 04:51 Absolute Neuts (auto) 4.0 10^3/ul (1.5-7.7) 05/07/19 04:51 Absolute Lymphs (auto) 1.5 10^3/ul (1.0-4.8) 05/07/19 04:51 Absolute Monos (auto) 0.8 10^3/ul (0-0.8) 05/07/19 04:51 Absolute Eos (auto) 0.5 10^3/ul (0-0.6) 05/07/19 04:51 Absolute Basos (auto) 0.0 10^3/ul (0-0.2) 05/07/19 04:51 Absolute Nucleated RBC 0.0 10^3/ul 05/07/19 04:51 Nucleated RBC % 0.0 05/07/19 04:51 Sodium 138 mmol/L (135-145) 05/07/19 04:51 Potassium 4.3 mmol/L (3.5-5.0) 05/07/19 04:51 Chloride 100 mmol/L (101-111) L 05/07/19 04:51 Carbon Dioxide 31 mmol/L (22-32) 05/07/19 04:51 Anion Gap 7 mmol/L (2-11) 05/07/19 04:51 BUN 12 mg/dL (6-24) 05/07/19 04:51 Creatinine 0.73 mg/dL (0.51-0.95) 05/07/19 04:51 Est GFR ( Amer) 98.1 (>60) 05/07/19 04:51 Est GFR (Non-Af Amer) 81.0 (>60) 05/07/19 04:51 BUN/Creatinine Ratio 16.4 (8-20) 05/07/19 04:51 Glucose 145 mg/dL (70-100) H 05/07/19 04:51 POC Glucose (mg/dL) 214 mg/dL (70-100) H 05/07/19 11:51 Lactic Acid 1.4 mmol/L (0.5-2.0) 05/03/19 22:46 Calcium 8.7 mg/dL (8.6-10.3) 05/07/19 04:51 Magnesium 2.2 mg/dL (1.9-2.7) 05/03/19 22:46 Total Bilirubin 0.30 mg/dL (0.2-1.0) 05/03/19 22:46 AST 34 U/L (13-39) 05/03/19 22:46 ALT 25 U/L (7-52) 05/03/19 22:46 Alkaline Phosphatase 90 U/L (34-104) 05/03/19 22:46 Troponin I 0.08 ng/mL (<0.04) H* 05/04/19 06:16 C-Reactive Protein 253.55 mg/L (<8.01) H 05/03/19 22:46 B-Natriuretic Peptide 271 pg/mL (<=100) H 05/03/19 22:46 Total Protein 5.6 g/dL (6.4-8.9) L 05/03/19 22:46 Albumin 3.1 g/dL (3.2-5.2) L 05/03/19 22:46 Globulin 2.5 g/dL (2-4) 05/03/19 22:46 Albumin/Globulin Ratio 1.2 (1-3) 05/03/19 22:46 TSH 0.24 mcIU/mL (0.34-5.60) L 05/03/19 22:46 Free T4 1.04 ng/dL (0.61-1.12) 05/04/19 06:16 Total T3 51 ng/dL (87-178) L 05/04/19 06:16 Urine Color Yellow 05/04/19 03:15 Urine Appearance Cloudy 05/04/19 03:15 Urine pH 5.0 (5-9) 05/04/19 03:15 Ur Specific [place] 1.018 (1.010-1.030) 05/04/19 03:15 Urine Protein 2+(100 mg/dl) (Negative) A 05/04/19 03:15 Urine Ketones Negative (Negative) 05/04/19 03:15 Urine Blood 2+ (Negative) A 05/04/19 03:15 Urine Nitrate Negative (Negative) 05/04/19 03:15 Urine Bilirubin Negative (Negative) 05/04/19 03:15 Urine Urobilinogen Negative (Negative) 05/04/19 03:15 Ur Leukocyte Esterase Negative (Negative) 05/04/19 03:15 Urine WBC (Auto) 1+(6-10/hpf) (Absent) A 05/04/19 03:15 Urine RBC (Auto) 3+(>10/hpf) (Absent) A 05/04/19 03:15 Ur Squamous Epith Cells Present (Absent) A 05/04/19 03:15 Urine Bacteria Absent (Absent) 05/04/19 03:15 Urine Glucose 1+(50 mg/dl) (Negative) A 05/04/19 03:15
[2019-05-07 13:25] VITALS: BP 113/62
== END 2019-05-07 16:16 | DRG 463 ==
LOC: ED 20:53 → MEDTELE 05-04 01:02 → OBSVTOIN 05-05 12:00
PROVIDERS: ADMIT Internal Medicine; ATTEND Internal Medicine
DX: N39.0 Urinary tract infection, site not specified (principal); E89.6 Postprocedural adrenocortical (-medullary) hypofunction; E11.9 Type 2 diabetes mellitus without complications; I10 Essential (primary) hypertension; E78.5 Hyperlipidemia, unspecified; F41.9 Anxiety disorder, unspecified; F43.10 Post-traumatic stress disorder, unspecified; I44.7 Left bundle-branch block, unspecified; Z96.652 Presence of left artificial knee joint; M19.90 Unspecified osteoarthritis, unspecified site; W19.XXXA Unspecified fall, initial encounter; B96.5 Pseudomonas (aeruginosa) (mallei) (pseudomallei) as the cause of diseases classified elsewhere; R53.1 Weakness; K21.9 Gastro-esophageal reflux disease without esophagitis; E04.1 Nontoxic single thyroid nodule; F31.9 Bipolar disorder, unspecified; G25.0 Essential tremor; K58.9 Irritable bowel syndrome, unspecified; E78.00 Pure hypercholesterolemia, unspecified; E66.01 Morbid (severe) obesity due to excess calories; Z68.39 Body mass index [BMI] 39.0-39.9, adult; Z87.440 Personal history of urinary (tract) infections; Z88.2 Allergy status to sulfonamides; Z80.42 Family history of malignant neoplasm of prostate; Z82.49 Family history of ischemic heart disease and other diseases of the circulatory system; Z83.3 Family history of diabetes mellitus; Y92.002 Bathroom of unspecified non-institutional (private) residence as the place of occurrence of the external cause; Z87.442 Personal history of urinary calculi; Z23 Encounter for immunization; Z79.84 Long term (current) use of oral hypoglycemic drugs
CPT/HCPCS: 36415; 71045; 80048; 80053; 81003; 81015; 83605; 83735; 83880; 84439; 84443; 84479; 84484; 85025; 86140; 87040; 87077; 87086; 87186; 90686; 93005; 99285; A9270-GY; G0378; G8978-GP-CK; G8979-GP-CI; J0696; J1650